=== PATIENT | male | born 1945 | race Caucasian/White ===

== ENCOUNTER 2020-08-26 10:42 | Outpatient (REF) | payer MEDICARE, SELFPAY ==
--- NOTE | ~2020-08-26 | XR_ITS ---
EXAMINATION: XR HIP, RIGHT CLINICAL INFORMATION: Right hip pain. COMPARISON: Right hip done on 11/22/2019. TECHNIQUE: Two views of the right hip. Single frontal view of the pelvis. FINDINGS: Mild diffuse osteopenia is noted. Mild decreased joint space, subchondral sclerosis, consistent with mild osteoarthrosis is present at the right hip. Appearance is similar to the left hip as is seen on the radiograph of the pelvis. Partial sacralization of L5 on the left. Multiple postsurgical, post hernia repair clips are present overlying the right lower quadrant of the pelvis. XR/XR hip RT w PEL1V IMPRESSION: Mild right hip osteoarthrosis, similar to prior study dated 11/22/2019..
== END 2020-08-26 10:43 | disposition home or self-care (01) ==
LOC: HO.HOSX 10:42
PROVIDERS: Visit Provider Orthopaedic Surgery
DX: M25.551 Pain in right hip (principal)
CPT/HCPCS: 73502

== ENCOUNTER → 2020-08-27 10:19 | Outpatient (BNVA) | payer MEDICARE, SELFPAY | PROVIDERS: PCP Internal Medicine; Visit Provider Orthopaedic Surgery | DX: M76.891 Other specified enthesopathies of right lower limb, excluding foot (principal) | CPT/HCPCS: 99202 ==

== ENCOUNTER → 2020-10-29 10:09 | Outpatient (BNVA) | payer MEDICARE, SELFPAY | PROVIDERS: Visit Provider Orthopaedic Surgery | DX: M16.11 Unilateral primary osteoarthritis, right hip (principal) | CPT/HCPCS: 99212 ==

== ENCOUNTER 2020-11-01 14:07 | Outpatient (REF) | payer MEDICARE, SELFPAY ==
--- NOTE | ~2020-11-01 | MR_ITS ---
EXAMINATION: MR HIP WITHOUT CONTRAST, RIGHT CLINICAL INFORMATION: Right hip pain. COMPARISON: X-ray 08/27/2020. TECHNIQUE: MRI of the right hip was obtained using routine sequences on a high-field strength magnet. FINDINGS: BONE/JOINTS: Mild right hip arthritis, with scattered areas of cartilage thinning and fissuring, faint subchondral edema in the acetabulum. No evidence of fracture, avascular necrosis or stress reaction. No significant joint effusion. No cystic foci in the anterior femoral head and neck junction. Pubic rami are intact. Mild right hip arthritis. On the coronal sequence of the pelvis, there is mild left SI joint arthritis. Normal articulation of the left hip joint. LABRUM: Mild anterosuperior labral degeneration. No focal displaced labral tear is seen. MUSCLES/TENDONS: Mild distal gluteus minimus tendinosis. Gluteus medius, rectus femoris, iliopsoas, common hamstring tendons are intact. No muscle tear. No greater trochanteric or iliopsoas bursitis. MISCELLANEOUS: No inguinal adenopathy. Prostate is enlarged measuring 4.7 cm transverse, with heterogeneous signal within the prostate gland, with the appearance most suggestive of a prominent transitional zone prostatic hypertrophy. No suspicious lesion identified. The urinary bladder is nondistended limiting evaluation. No free fluid in the pelvis. There are surgical clips along the anterior abdominal wall from prior surgery. Prostate findings were reviewed/discussed with Dr. Dickson. MR/MR hip RT wo con IMPRESSION: 1. Mild right hip arthritis. No evidence of acute osseous abnormality. 2. Anterosuperior labral degeneration. No focal tear. 3. Mild distal gluteus minimus tendinosis. 4. Mild right hip arthritis. 5. Mild bilateral SI joint arthritis. 6. Enlarged prostate, with prominent transitional zone prostatic hypertrophy. No suspicious lesion identified.
== END 2020-11-01 14:08 | disposition home or self-care (01) ==
LOC: HO.MRI 14:07
PROVIDERS: Visit Provider Orthopaedic Surgery
DX: M16.11 Unilateral primary osteoarthritis, right hip (principal); M76.891 Other specified enthesopathies of right lower limb, excluding foot
CPT/HCPCS: 73721

== ENCOUNTER → 2020-11-06 11:25 | Outpatient (BNVA) | payer MEDICARE, SELFPAY | PROVIDERS: Visit Provider Orthopaedic Surgery | DX: M16.11 Unilateral primary osteoarthritis, right hip (principal) | CPT/HCPCS: 99212 ==

== ENCOUNTER 2021-01-28 11:34 | Outpatient (REF) | payer MEDICARE, SELFPAY ==
--- NOTE | ~2021-01-28 | XR_ITS ---
EXAMINATION: CR X-RAY KNEE STANDING BILATERAL CLINICAL INFORMATION: Bilateral knee pain. COMPARISON: Bilateral knee radiographs dated 09/18/2016. TECHNIQUE: Bilateral AP standing views of the knees were obtained along with right knee lateral and axial views. FINDINGS: Moderate medial femoral-tibial degenerative joint changes are seen bilaterally with joint space narrowing and periarticular sclerosis. There is no acute fracture, dislocation or joint effusion. The soft tissues are unremarkable. XR/XR knee standing BI IMPRESSION: Moderate medial femoral-tibial degenerative joint changes suggesting osteoarthritis represent mild interval increase from the 2017 study.
--- NOTE | ~2021-01-28 | XR_ITS ---
EXAMINATION: CR X-RAY KNEE STANDING BILATERAL CLINICAL INFORMATION: Bilateral knee pain. COMPARISON: Bilateral knee radiographs dated 09/18/2016. TECHNIQUE: Bilateral AP standing views of the knees were obtained along with right knee lateral and axial views. FINDINGS: Moderate medial femoral-tibial degenerative joint changes are seen bilaterally with joint space narrowing and periarticular sclerosis. There is no acute fracture, dislocation or joint effusion. The soft tissues are unremarkable. XR/XR knee RT 2V IMPRESSION: Moderate medial femoral-tibial degenerative joint changes suggesting osteoarthritis represent mild interval increase from the 2017 study.
== END 2021-01-28 11:35 | disposition home or self-care (01) ==
LOC: HO.HOSX 11:34
PROVIDERS: Visit Provider Orthopaedic Surgery
DX: M17.11 Unilateral primary osteoarthritis, right knee (principal); M25.562 Pain in left knee
CPT/HCPCS: 20610; 73560; 73565; 99212; J1040

== ENCOUNTER 2021-01-29 12:48 | Outpatient (REF) | payer MEDICARE, SELFPAY ==
--- NOTE | ~2021-01-29 | CT_ITS ---
EXAMINATION: CT HEAD WITHOUT CONTRAST CLINICAL INFORMATION: Hydrocephalus. COMPARISON: None TECHNIQUE: Contiguous axial imaging was performed from the skull base to vertex without intravenous administration of contrast. This CT examination was performed using dose optimization techniques as appropriate, variously including the following: *Automated exposure control *Adjustment of mA and/or kV according to patient size (this includes techniques or standardized protocols for targeted exams where dose is matched to indication/reason for exam; i.e. extremities or head) *Use of iterative reconstruction technique DLP: 757 mGy-cm FINDINGS: There is no evidence of acute intracranial hemorrhage or territorial infarction. No abnormal mass effect or midline shift is seen. Lee to white matter differentiation is well preserved. No extra-axial fluid collections are identified. The lateral ventricles are symmetrical but enlarged with mild prominence of cortical sulci. There is mild perivesical hypodensity with no mass effect. The osseous structures and soft tissues are normal. The mastoid air cells and visualized portions of the paranasal sinuses are well aerated. CT/CT head/brain wo con IMPRESSION: No acute intracranial process seen.
--- NOTE | ~2021-01-29 | MR_ITS ---
MR CERVICAL SPINE WITHOUT IV CONTRAST CLINICAL INFORMATION: Rule out spinal stenosis/cord compression. COMPARISON: None available. TECHNIQUE: MRI of the cervical spine was obtained using routine sequences without contrast. FINDINGS: Mild anterior subluxation of C4 on C5. There is no bone marrow edema. There are no acute fractures. Vertebral body heights are maintained. Moderate to severe disc volume loss at C6-C7 and moderate disc volume loss at C5-C6. Partially imaged intracranial compartment is unremarkable. Cervical arterial flow voids are maintained. There are no significant extraspinal soft tissue findings. There is no cord signal abnormality. C2-C3: Disc contour normal. No central canal stenosis and no foraminal stenosis. C3-C4: Small disc osteophyte. No central canal stenosis and no foraminal stenosis. C4-C5: Small disc osteophyte. Mild anterior subluxation. Bilateral facet arthropathy. No central canal stenosis and no foraminal stenosis. C5-C6: Disc osteophyte without central canal stenosis. Uncovertebral joint spurring and facet arthropathy without significant foraminal stenosis. C6-C7: Disc osteophyte without central canal stenosis. Uncovertebral joint spurring and facet arthropathy result in mild bilateral foraminal encroachment. C7-T1: Mild anterior subluxation. No central canal stenosis and no foraminal stenosis. MR/MR cervical spine wo con IMPRESSION: Multilevel cervical spondylosis. No severe central canal stenosis and no severe foraminal stenosis within the cervical spine. No cervical cord compression and no cord signal abnormality.
== END 2021-01-29 12:49 | disposition home or self-care (01) ==
LOC: HO.MRI 12:48
PROVIDERS: PCP Internal Medicine; Visit Provider Psychiatry & Neurology Neurology
DX: G91.9 Hydrocephalus, unspecified (principal)
CPT/HCPCS: 70450; 72141

== ENCOUNTER 2021-04-15 12:50 | Outpatient (REF) | payer MEDICARE, SELFPAY ==
--- NOTE | ~2021-04-15 | MR_ITS ---
EXAMINATION: MR LUMBAR SPINE WITHOUT CONTRAST CLINICAL INFORMATION: 76-year-old with gait abnormality. Patient complains of low back pain and heavy legs. COMPARISON: None. TECHNIQUE: MRI of the lumbar spine was obtained using routine sequences without contrast. FINDINGS: Coronal Alignment: Normal. Sagittal Alignment: A 4 mm of grade 1 degenerative spondylolisthesis at L4-L5 noted with 2.5 mm of grade 1 degenerative spondylolisthesis at L3-L4. Trace retrolisthesis at L2-L3. A 3 mm of retrolisthesis at L1-L2 and 2 mm of retrolisthesis at T12-L1. Lumbosacral Junction: Transitional anatomy with lowest lumbar-like segment labeled as L5, which is partially sacralized on the left. Vertebral Bodies: Normal height. Disc Spaces and Endplates: Rcjg-av-swcpgfym disc space height loss at L5-S1 with disc desiccation noted. Kluejsjh-nr-zwykzf disc space height loss at L4-L5 with disc desiccation and mild spondylosis. Mild disc space height loss posteriorly at L3-L4. There is szpm-nn-jrrplrvg disc space height loss at L1-L2 and T12-L1. Multilevel disc desiccation is noted. There is qnkw-oe-idamnlji anterolateral spondylosis between L1-L2 and T10-T11 inclusive. Spinal Canal: No abnormal developmental findings. Bone Marrow: No significant marrow-replacing process or bone marrow edema. There is a 2.6 cm benign vertebral hemangioma within the T11 vertebral body in addition to a 1.9 cm vertebral hemangioma within the T12 vertebral body on the left. Small foci of nonspecific fatty marrow replacement are seen scattered throughout the lumbar spine. Conus Medullaris: Terminates at T12. Morphology and signal is normal. Intradural Nerve Roots: Within normal limits. L5-S1: Minimal posterolateral disc osteophyte complex noted with a small right paramedian transverse annular fissure which slightly abuts the ventral thecal sac and S1 nerve root sleeve origins without nerve root compression or displacement. No significant canal or neural foraminal stenosis. L4-L5: Unroofing of the posterior disc margin noted consistent with spondylolisthesis, with pseudodisc bulging and a central radial annular fissure. There is severe bilateral facet arthrosis with moderate central spinal canal stenosis, with severe bilateral subarticular and lateral recess stenosis. There is impingement on the traversing L5 nerve roots bilaterally. There is moderate left-sided and mild right-sided craniocaudal neural foraminal stenosis with mild encroachment on the exiting left L5 nerve root. L3-L4: Slight unroofing of the posterior disc margin, with minimal disc bulging and slight flattening of the dural sac noted with moderate to severe bilateral facet arthropathy and mild narrowing of the subarticular zones bilaterally with mild central canal stenosis. There is mild right-sided neural foraminal stenosis without neural impingement. L2-L3: Minor posterolateral disc protrusion noted bilaterally with a tiny central annular fissure and a iehl-af-jxnvihor bilateral facet arthropathy without significant canal or neural foraminal stenosis. L1-L2: Mild retrolisthesis noted, with slight flattening of the ventral dural sac. No significant facet arthrosis, canal or neural foraminal stenosis. 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 This may reflect a cyst but a solid mass cannot be excluded. Recommend renal ultrasound. The paravertebral soft tissues appear unremarkable. MR/MR lumbar spine wo con IMPRESSION: 1. Grade 1 degenerative spondylolisthesis at L4-L5 and L3-L4 and mild degrees of retrolisthesis at L2-L3, L1-L2 and T12-L1 with multilevel DDD and spondylosis. 2. Multilevel disc bulging and annular fissuring as described above, with multilevel bilateral facet arthropathy. 3. Spinal canal stenosis at L4-L5 as described above with probable encroachment on the traversing L5 nerve roots bilaterally with bilateral neural foraminal narrowing, left more than right and mild right-sided neural foraminal stenosis at L3-L4. 4. Transitional lumbosacral anatomy. 5. A 4 cm probable cyst upper pole right kidney but cannot exclude a solid mass. Recommend renal ultrasound.
== END 2021-04-15 12:51 | disposition home or self-care (01) ==
LOC: HO.MRI 12:50
PROVIDERS: Visit Provider Internal Medicine
DX: R26.9 Unspecified abnormalities of gait and mobility (principal)
CPT/HCPCS: 72148

== ENCOUNTER 2021-04-29 13:57 | Outpatient (REF) | payer MEDICARE, SELFPAY ==
--- NOTE | ~2021-04-29 | US_ITS ---
EXAMINATION: US RETROPERITONEAL LIMITED (RENAL ONLY) CLINICAL INFORMATION: Right renal mass. COMPARISON: None TECHNIQUE: Real-time imaging of the kidneys. FINDINGS: RIGHT KIDNEY: 10.3 x 4.6 x 5.4 cm (SAG x AP x TRV). The kidney is normal in size, contour, and echogenicity. Renal cortical thickness is normal. No renal calculi or hydronephrosis. There is anechoic cyst in the upper pole measuring 4.8 x 3.9 x 4.2 cm. LEFT KIDNEY: 11.7 x 3.9 x 5.4 cm (SAG x AP x TRV). The kidney is normal in size, contour, and echogenicity. Renal cortical thickness is normal. No calculi or focal parenchymal lesions. No hydronephrosis. US/US renal BI IMPRESSION: Anechoic cyst upper pole right kidney. There is no echogenic stones or hydronephrosis in either kidney.
== END 2021-04-29 13:58 | disposition home or self-care (01) ==
LOC: HO.HMGCX 13:57
PROVIDERS: Visit Provider Internal Medicine
DX: N28.89 Other specified disorders of kidney and ureter (principal)
CPT/HCPCS: 76775

== ENCOUNTER 2021-07-16 11:00 | Outpatient (RCR) | payer MEDICARE, SELFPAY | END 2021-07-16 12:25 | disposition home or self-care (01) | LOC: HO.PTCHIC 11:00 | PROVIDERS: Visit Provider Neurological Surgery | DX: M54.9 Dorsalgia, unspecified (principal); M43.16 Spondylolisthesis, lumbar region | CPT/HCPCS: 97110; 97112; 97162 ==

== ENCOUNTER 2021-08-25 09:39 | Outpatient (REF) | payer MEDICARE, SELFPAY ==
[2021-08-25 11:42] LABS: MANUAL DIFF FLAG NO
[2021-08-25 11:53] LABS: Basophils Percent Auto 0.5 % (0-2); Eosinophils Absolute Auto 0.1 X10*3/uL (0.0-0.4); Eosinophils Percent Auto 1.8 % (0-4); Hematocrit 41.2 % (42.0-52.0); Hemoglobin 13.6 g/dl (14.0-18.0); Imm Gran Abs Auto 0.02 X10*3/uL (0.00-0.03); Imm Gran Pct Auto 0.3 % (0.0-0.4); Lymphocytes Absolute Auto 1.7 X10*3/uL (1.2-4.9); Lymphocytes Percent Auto 27.8 % (20-40); Mean Corpuscular Hemoglobin 30.4 pg (27.0-33.0); Mean Corpuscular Volume 92.2 fL (80.0-98.0); Mean Platelet Volume 9.9 fL (9.4-12.4); Monocytes Absolute Auto 0.4 X10*3/uL (0.1-1.2); Monocytes Percent Auto 6.2 % (2-11); Neutrophils Absolute Auto 3.9 x10*3/uL (2.0-8.3); Neutrophils Percent Auto 63.4 % (45-73); Platelet Count 197 X10*3/uL (160-400); Red Blood Count 4.47 X10*6/uL (4.60-5.80); Red Cell Distribution Width 13.2 % (11.0-16.0); White Blood Count 6.1 X10*3/uL (4.8-10.8)
[2021-08-25 12:01] LABS: Alanine Aminotransferase 22 U/L (0-40); Albumin Level 4.3 g/dL (3.5-5.0); Alkaline Phosphatase 62 U/L (39-117); Anion Gap 14 (12-20); Aspartate Amino Transferase 19 U/L (5-37); Bilirubin Total 1.2 mg/dL (0.0-1.0); Blood Urea Nitrogen 23 mg/dL (9-16); Calcium 9.3 mg/dL (8.4-10.2); Carbon Dioxide 25 mmol/L (22-29); Chloride 105 mmol/L (96-108); Cholesterol 218 mg/dL; Estimated Glomerular Filt Rate > 60; Glucose Fasting 98 mg/dL (60-99); HDL Cholesterol 69 mg/dL; LDL Cholesterol Calculated 137 mg/dl; Potassium 4.3 mmol/L (3.3-5.1); Sodium 140 mmol/L (135-145); Total Protein 6.6 g/dL (6.5-8.0); Triglycerides 60 mg/dL
[2021-08-25 12:25] LABS: PSA,Total (Free>4and<10) 1.41 ng/mL (0.00-4.00); Thyroid Stimulating Hormone 1.08 uIU/mL (0.32-4.0); Vitamin D 25-OH Total 40.3 ng/mL (>30)
== END 2021-08-25 09:40 | disposition home or self-care (01) ==
LOC: HO.HMGCLDS 09:39
PROVIDERS: PCP Internal Medicine; Visit Provider Internal Medicine
DX: Z12.5 Encounter for screening for malignant neoplasm of prostate (principal); K21.9 Gastro-esophageal reflux disease without esophagitis; N40.0 Benign prostatic hyperplasia without lower urinary tract symptoms
CPT/HCPCS: 36415; 80053; 80061; 82306; 84153; 84443; 85025

== ENCOUNTER → 2021-10-20 11:25 | Outpatient (BNVA) | payer MEDICARE, SELFPAY | PROVIDERS: PCP Internal Medicine; Visit Provider Physician Assistant | DX: M17.11 Unilateral primary osteoarthritis, right knee (principal) | CPT/HCPCS: 20610; 99212; J1040 ==

== ENCOUNTER 2022-07-06 09:07 | Outpatient (REF) | payer MEDICARE, SELFPAY ==
[2022-07-06 11:52] LABS: MANUAL DIFF FLAG NO
[2022-07-06 12:16] LABS: Basophils Percent Auto 0.6 % (0-2); Eosinophils Absolute Auto 0.1 X10*3/uL (0.0-0.4); Eosinophils Percent Auto 1.9 % (0-4); Hematocrit 41.9 % (42.0-52.0); Hemoglobin 13.8 g/dl (14.0-18.0); Imm Gran Abs Auto 0.02 X10*3/uL (0.00-0.03); Imm Gran Pct Auto 0.4 % (0.0-0.4); Lymphocytes Absolute Auto 1.7 X10*3/uL (1.2-4.9); Lymphocytes Percent Auto 32.6 % (20-40); Mean Corpuscular HGB Conc 32.9 g/dl (31.0-36.0); Mean Corpuscular Hemoglobin 30.1 pg (27.0-33.0); Mean Corpuscular Volume 91.5 fL (80.0-98.0); Mean Platelet Volume 10.1 fL (9.4-12.4); Monocytes Absolute Auto 0.4 X10*3/uL (0.1-1.2); Monocytes Percent Auto 7.1 % (2-11); Neutrophils Absolute Auto 3.1 x10*3/uL (2.0-8.3); Neutrophils Percent Auto 57.4 % (45-73); Platelet Count 208 X10*3/uL (160-400); Red Blood Count 4.58 X10*6/uL (4.60-5.80); Red Cell Distribution Width 12.9 % (11.0-16.0); White Blood Count 5.3 X10*3/uL (4.8-10.8)
[2022-07-06 12:51] LABS: Alanine Aminotransferase 23 U/L (0-40); Albumin Level 4.1 g/dL (3.5-5.0); Alkaline Phosphatase 75 U/L (39-117); Anion Gap 12 (12-20); Aspartate Amino Transferase 17 U/L (5-37); Bilirubin Total 1.1 mg/dL (0.0-1.0); Blood Urea Nitrogen 19 mg/dL (9-16); Calcium 9.1 mg/dL (8.4-10.2); Carbon Dioxide 27 mmol/L (22-29); Chloride 106 mmol/L (96-108); Cholesterol 218 mg/dL; Estimated Glomerular Filt Rate > 60; Glucose Fasting 100 mg/dL (60-99); HDL Cholesterol 63 mg/dL; LDL Cholesterol Calculated 143 mg/dl; Potassium 4.3 mmol/L (3.3-5.1); Sodium 141 mmol/L (135-145); Thyroid Stimulating Hormone 1.06 uIU/mL (0.32-4.0); Total Protein 6.3 g/dL (6.5-8.0); Triglycerides 63 mg/dL
== END 2022-07-06 09:08 | disposition home or self-care (01) ==
LOC: HO.HMGCLDS 09:07
PROVIDERS: Visit Provider Internal Medicine
DX: G20 Parkinson's disease (principal); K21.9 Gastro-esophageal reflux disease without esophagitis; N40.0 Benign prostatic hyperplasia without lower urinary tract symptoms
CPT/HCPCS: 36415; 80053; 80061; 84443; 85025

== ENCOUNTER 2023-08-26 10:29 | Outpatient (REF) | payer MEDICARE, SELFPAY ==
[2023-08-26 13:19] LABS: MANUAL DIFF FLAG NO
[2023-08-26 13:42] LABS: Basophils Percent Auto 0.5 % (0-2); Eosinophils Absolute Auto 0.2 X10*3/uL (0.0-0.4); Eosinophils Percent Auto 2.7 % (0-4); Hemoglobin 14.6 g/dl (14.0-18.0); Imm Gran Abs Auto 0.02 X10*3/uL (0.00-0.03); Imm Gran Pct Auto 0.4 % (0.0-0.4); Lymphocytes Absolute Auto 1.6 X10*3/uL (1.2-4.9); Lymphocytes Percent Auto 29.3 % (20-40); Mean Corpuscular HGB Conc 33.2 g/dl (31.0-36.0); Mean Corpuscular Hemoglobin 30.4 pg (27.0-33.0); Mean Corpuscular Volume 91.5 fL (80.0-98.0); Mean Platelet Volume 9.7 fL (9.4-12.4); Monocytes Absolute Auto 0.3 X10*3/uL (0.1-1.2); Monocytes Percent Auto 6.2 % (2-11); Neutrophils Absolute Auto 3.3 x10*3/uL (2.0-8.3); Neutrophils Percent Auto 60.9 % (45-73); Platelet Count 206 X10*3/uL (160-400); Red Blood Count 4.81 X10*6/uL (4.60-5.80); Red Cell Distribution Width 12.9 % (11.0-16.0); White Blood Count 5.5 X10*3/uL (4.8-10.8)
[2023-08-26 14:04] LABS: Alanine Aminotransferase 17 U/L (0-40); Albumin Level 4.4 g/dL (3.5-5.0); Alkaline Phosphatase 69 U/L (39-117); Anion Gap 12 (12-20); Aspartate Amino Transferase 16 U/L (5-37); Bilirubin Total 1.1 mg/dL (0.0-1.0); Blood Urea Nitrogen 21 mg/dL (9-16); Calcium 9.3 mg/dL (8.4-10.2); Carbon Dioxide 27 mmol/L (22-29); Chloride 106 mmol/L (96-108); Cholesterol 229 mg/dL (<200); Estimated Glomerular Filt Rate > 60; Glucose Fasting 97 mg/dL (60-99); HDL Cholesterol 62 mg/dL (>40); LDL Cholesterol Calculated 151 mg/dL (<100); Potassium 4.1 mmol/L (3.3-5.1); Sodium 141 mmol/L (135-145); Total Protein 7.1 g/dL (6.5-8.0); Triglycerides 82 mg/dL (<150)
[2023-08-26 14:20] LABS: Thyroid Stimulating Hormone 1.03 uIU/mL (0.32-4.0)
== END 2023-08-26 10:30 | disposition home or self-care (01) ==
LOC: HO.HMGCLDS 10:29
PROVIDERS: PCP Internal Medicine; Visit Provider Internal Medicine
DX: E78.00 Pure hypercholesterolemia, unspecified (principal); I49.49 Other premature depolarization; K21.9 Gastro-esophageal reflux disease without esophagitis; N40.0 Benign prostatic hyperplasia without lower urinary tract symptoms
CPT/HCPCS: 36415; 80053; 80061; 84443; 85025

== ENCOUNTER 2024-02-21 14:45 | Outpatient (AMB) | payer MEDICARE, SELFPAY ==
--- NOTE | 2024-02-21 14:46 | MHC.OFFVIS ---
Vital Signs 02/21/24 14:54 Height 5 ft 6 in Weight 153 lb BMI 24.7 BP 136/72 Blood Pressure Location Rt brachial Position Sitting Pulse 78 Intake Visit Reasons: pilonidal cyst Intake Note: Patient referred for pilonidal cyst on buttock. Present on and off for yrs. Patient c/o: tenderness when I sit wrong. 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 It is increasing in size,, symptomatic. Like to have removed. He has no such lesions elsewhere. Patient is otherwise relatively healthy considering his age. Chart was reviewed and patient evaluate [facility] Medical History Inguinal hernia Allergies Chronic GERD Social History Current occupational status: retired Current occupation: right handed Physical Exam Vital Signs: Last Vital Signs Pulse 78 02/21/24 14:54 BP 136/72 02/21/24 14:54 BMI result Body Mass Index 24.7 Chest Other: Chest breath sounds bilaterally, HS 1 in 2 GI Other: Abdomen is soft, benign Back/Spine/Pelvis Other: Patient has an exophytic growth involving the darrel cleft area. This measures approximately 4 x 3 cm. Assessment & Plan Assessment & Plan (1) Palpable mass of lower back: Code(s): R22.2 - Localized swelling, mass and lump, trunk Category: Surgical Plan Patient would like to have this lesion removed. Risks, benefits, alternatives of excision of mass of cleft area reviewed the patient included but not limited to bleeding infection, recurrence, numbness, pain, scarring, seroma formation, wound dehiscence and the patient wished to proceed. All questions answered. Arrangements were made for this. Coding Level of Care Code New Pt Level 5 (95022) Diagnoses Palpable mass of lower back R22.2
[2024-02-21 14:54] VITALS: BP 136/72; PULSE 78; BMI 24.7
== END 2024-02-21 15:12 | disposition home or self-care (01) ==
PROVIDERS: PCP Internal Medicine; Visit Provider Surgery
DX: R22.2 Localized swelling, mass and lump, trunk (principal)
CPT/HCPCS: 99204

== ENCOUNTER → 2024-02-21 14:45 | Outpatient (BNVA) | payer MEDICARE, SELFPAY | PROVIDERS: PCP Internal Medicine; Visit Provider Surgery | DX: R22.2 Localized swelling, mass and lump, trunk (principal) | CPT/HCPCS: 99202 ==

== ENCOUNTER 2024-03-03 07:33 | Outpatient (REF) | payer MEDICARE, SELFPAY ==
[2024-03-03 10:08] LABS: MANUAL DIFF FLAG NO
[2024-03-03 10:10] LABS: Basophils Percent Auto 0.5 % (0-2); Eosinophils Absolute Auto 0.3 X10*3/uL (0.0-0.4); Eosinophils Percent Auto 4.5 % (0-4); Hematocrit 42.2 % (42.0-52.0); Hemoglobin 13.9 g/dl (14.0-18.0); Imm Gran Abs Auto 0.02 X10*3/uL (0.00-0.03); Imm Gran Pct Auto 0.4 % (0.0-0.4); Lymphocytes Absolute Auto 1.5 X10*3/uL (1.2-4.9); Lymphocytes Percent Auto 27.9 % (20-40); Mean Corpuscular HGB Conc 32.9 g/dl (31.0-36.0); Mean Corpuscular Hemoglobin 30.5 pg (27.0-33.0); Mean Corpuscular Volume 92.5 fL (80.0-98.0); Mean Platelet Volume 9.9 fL (9.4-12.4); Monocytes Absolute Auto 0.4 X10*3/uL (0.1-1.2); Monocytes Percent Auto 6.3 % (2-11); Neutrophils Absolute Auto 3.3 x10*3/uL (2.0-8.3); Neutrophils Percent Auto 60.4 % (45-73); Platelet Count 212 X10*3/uL (160-400); Red Blood Count 4.56 X10*6/uL (4.60-5.80); Red Cell Distribution Width 13.6 % (11.0-16.0); White Blood Count 5.5 X10*3/uL (4.8-10.8)
[2024-03-03 10:40] LABS: Alanine Aminotransferase 14 U/L (0-40); Albumin Level 4.2 g/dL (3.5-5.0); Alkaline Phosphatase 78 U/L (39-117); Anion Gap 9 (12-20); Aspartate Amino Transferase 17 U/L (5-37); Bilirubin Total 0.9 mg/dL (0.0-1.0); Blood Urea Nitrogen 22 mg/dL (9-16); Calcium 9.4 mg/dL (8.4-10.2); Carbon Dioxide 29 mmol/L (22-29); Chloride 109 mmol/L (96-108); Cholesterol 214 mg/dL (<200); Estimated Glomerular Filt Rate > 60; Glucose Fasting 99 mg/dL (60-99); HDL Cholesterol 65 mg/dL (>40); LDL Cholesterol Calculated 136 mg/dL (<100); Sodium 143 mmol/L (135-145); Total Protein 6.8 g/dL (6.5-8.0); Triglycerides 66 mg/dL (<150)
[2024-03-03 10:41] LABS: Thyroid Stimulating Hormone 1.23 uIU/mL (0.32-4.0)
== END 2024-03-03 07:34 | disposition home or self-care (01) ==
LOC: HO.HMGCLDS 07:33
PROVIDERS: PCP Internal Medicine; Visit Provider Internal Medicine
DX: K21.9 Gastro-esophageal reflux disease without esophagitis (principal); N40.0 Benign prostatic hyperplasia without lower urinary tract symptoms; M54.50 Low back pain, unspecified; G20.C Parkinsonism, unspecified; E78.00 Pure hypercholesterolemia, unspecified
CPT/HCPCS: 36415; 80053; 80061; 84443; 85025

== ENCOUNTER 2024-03-03 09:22 | Emergency (ER) | payer MEDICARE, SELFPAY ==
--- NOTE | ~2024-03-03 | XR_ITS ---
EXAMINATION: XR CHEST XR RIBS, RIGHT CLINICAL INFORMATION: Pain/fall Pain on right side of ribs COMPARISON: Chest radiograph 05/11/2019 TECHNIQUE: 1 view of the chest and 3 views of the right ribs were obtained. FINDINGS: Lungs are adequately expanded. There is no focal consolidation. No pleural effusions or pneumothorax. The cardiomediastinal silhouette is within normal limits. No acute osseous abnormality. No displaced right rib fractures are identified. XR/XR ribs RT min 3V w CXR1V IMPRESSION: 1. No acute pulmonary disease. 2. No displaced right rib fractures are identified. Electronically signed by: Bautista Smith MD 03/03/2024 12:18 PM EDT RP
--- NOTE | ~2024-03-03 | CT_ITS ---
EXAMINATION: CT ANGIOGRAM CHEST CLINICAL INFORMATION: Shortness of breath, elevated D dimer COMPARISON: None available. TECHNIQUE: Multiple axial images were obtained through the chest after the administration of 65 mL of Omnipaque 350 intravenous contrast. Extensive vascular post-processing including two-dimensional and three-dimensional reformatted images were created and reviewed on an independent workstation. This CT examination was performed using dose optimization techniques as appropriate, variously including the following: *Automated exposure control *Adjustment of mA and/or kV according to patient size (this includes techniques or standardized protocols for targeted exams where dose is matched to indication/reason for exam; i.e. extremities or head) *Use of iterative reconstruction technique DLP: 278 mGy-cm FINDINGS: PULMONARY ARTERIES: The main pulmonary arteries, lobar and segmental arterial branches show adequate enhancement. Main pulmonary trunk measures 386 Hounsfield units in mean attenuation. Progressive periocular occluding thrombus is seen in the left lingular lobar and superior segmental arteries. There is mild dilatation of the right ventricle but no significant displacement of the interventricular septum. The right ventricle/left ventricle ratio is 1.0, compatible with right heart strain. Branching order level of the most proximal level of pulmonary embolus: Left lingular Lobar artery LUNGS: The visualized lung parenchyma is clear. PLEURA: No pleural effusion or pneumothorax is seen. PERICARDIUM: No pericardial effusion is seen. MEDIASTINUM AND CHAPO: No abnormally enlarged mediastinal or hilar lymph nodes are seen. TRACHEOBRONCHIAL TREE: Trachea and bilateral mainstem bronchi are patent. THORACIC AORTA: The thoracic aorta is normal in size and smoothly patent. CORONARY ARTERY CALCIFICATIONS: Absent CHEST WALL AND LOWER NECK: The subcutaneous and muscular chest wall are intact with no focal lesion. No abnormal mass lesion could be seen in the visualized lower neck. BONES: Radiolucent lesions with polkadot appearance are seen in T6, left lateral T12 and partially visualized in left upper L1 vertebral bodies, compatible with cavernous hemangioma. No fracture or dislocation. No focal bone lesion diagnostic of metastatic disease could be seen in the thorax. VISUALIZED UPPER ABDOMEN: Bilateral adrenal glands are not enlarged. Right upper pole simple cyst is partially visualized, measuring 3.6 cm in diameter in the visualized portion, mean attenuation of 7.9 Hounsfield units. A 1.6 cm accessory spleen is seen medial to the splenic body. CT/CT angio chest PE protocol IMPRESSION: 1. Progressive occluding thrombus is seen in the left lingula lobar and superior segmental arteries with mild right heart strain. 2. No focal lung infiltrates or mediastinal lymphadenopathy are seen. 3. No thoracic aortic aneurysm or dissection is seen. 4. Vertebral hemangiomas are seen in T6, T12 and L1. 5. Right upper pole renal cortical simple cyst is found, for which no follow-up imaging is recommended. This critical result was discussed with GARETH Arroyo on 03/03/2024 at 1550 hours and it was ascertained that the content and urgency of this report was understood at the time of direct communication. Fleischner guidelines were followed. VTE: Positive. Electronically signed by: Ammy Farr MD 03/03/2024 03:52 PM EDT
--- NOTE | 2024-03-03 09:24 | ECG_ITS ---
Test Reason : chest pain Blood Pressure : / mmHG Vent. Rate : 083 BPM Atrial Rate : 083 BPM P-R Int : 194 ms QRS Dur : 080 ms QT Int : 350 ms P-R-T Axes : 047 016 051 degrees QTc Int : 411 ms Normal sinus rhythm Normal ECG When compared with ECG of 17-NOV-2005 09:03, No significant change was found Referred By: Generic ED Physician Electronically Signed By:ELISHA LOOMIS
[2024-03-03 09:30] VITALS: BP 141/91; PULSE 78; RESP 20; TEMP 36.4; O2SAT 100; BMI 24.7
--- NOTE | 2024-03-03 09:48 | ED.GENADULT ---
HPI - General Adult General Chief complaint: General Medical Stated complaint: symptoms of a heart attack, sent by [facility] Time Seen by Provider: 03/03/24 09:45 Source: patient Mode of arrival: ambulatory Limitations: no limitations History of Present Illness ED Provider: Jessica Feldman PA-C HPI narrative: 79yo M PMHx Parkinsons, osteoarthritis of right knee and hip sent in by PCP for low BP in the office (80/50), feeling off , chills, hot and cold sweats. Reports he fell Wednesday, denies head strike, LOC, no thinners, no preceding sx to fall. Patient unable to report why he fell earlier this week. C/o right sided rib/chest pain radiating to shoulder. Denies cough, fevers, chills, cp, sob, headache, vision changes, dizziness weakness. States his pain is worse when breathing but otherwise he offers no complaints. Related Data Home Medications ?Medication ?Instructions ?Recorded ?Confirmed finasteride 1 mg tablet 1 mg PO DAILY 08/27/20 fluticasone furoate 100 1 inh inhalation DAILY 08/27/20 mcg/actuation blister powder for inhalation omeprazole 20 mg capsule,delayed 20 mg PO DAILY 08/27/20 release carbidopa 10 mg-levodopa 100 mg 1 tab PO BID 02/21/24 tablet Previous Rx's ?Medication ?Instructions ?Recorded apixaban 5 mg (74 tabs) tablets in 5 mg PO BID #74 ea 03/03/24 a dose pack (Eliquis DVT-PE Treat 30D Start) Allergies Allergy/AdvReac Type Severity Reaction Status Date / Time No Known Allergies Allergy Verified 03/03/24 09:35 [No Known Allergies*] Review of Systems Review of Systems: Yes all other systems are reviewed and are negative PMFSH Past Medical History Attestation statement: The following information was validated with the patient. Source: old records reviewed and nursing notes reviewed Medical History Inguinal hernia Allergies Chronic GERD Social History Social History Advance Directives: No Advance Directives Information Provided: No Do you have a plan to hurt others: No Plan Current occupational status: retired Current occupation: right handed Physical Exam ED Vital Signs: Vital Signs - 24 hr 03/03/24 09:30 03/03/24 10:01 03/03/24 11:33 Temperature 97.5 F Pulse Rate 78 75 81 Respiratory Rate 20 Blood Pressure 141/91 H 147/43 H 150/86 H Pulse Oximetry 100 Oxygen Delivery Method Room Air 03/03/24 11:36 Temperature Pulse Rate 86 Respiratory Rate Blood Pressure 136/79 Pulse Oximetry Oxygen Delivery Method BMI result Body Mass Index 24.7 vss Appearance: Alert.? Oriented X3.? No acute distress.? Head: Normocephalic, atraumatic, no step-offs or deformities Eyes: Pupils equal, round and reactive to light.? CVS: Normal heart rate and rhythm.? Pulses normal.?TTP right ribs along anterior/midaxillary line. No bruising appreciated Respiratory: No respiratory distress.? Breath sounds normal.? Abdomen: Soft and nontender.? Skin: Skin warm and dry.? Normal skin color.? Normal skin turgor.? Extremities: No lower extremity edema.? No calf ttp. 5/5 strength to bilateral upper and lower extremities Neuro: Oriented X 3.? No motor deficit.? No sensory deficit. CN 2-12 intact Course Reevaluation(s) Reevaluation #1: CBC unremarkable. Chemistry no acute findings eating intervention. Troponin negative x2. Elevated D-dimer suggest possible PE therefore CTA was ordered. Flu, COVID, RSV negative. Time: 12:00 Reevaluation #2: + lobar PE in left lingula w/ mild right heart strain. Time: 15:52 Reevaluation #3: Will discharge patient home on Eliquis. Will give 1st dose here. Will go over strict criteria/instructions of blood thinner use. Will have him follow up with PCP and Cardiology Time: 15:59 Medications Administered Discontinued Medications Generic Name Dose Route Start Last Admin Trade Name Freq PRN Reason Stop Dose Admin Iohexol 65 ml 03/03/24 14:14 03/03/24 14:14 Iohexol 350 Mg/Ml 75 Ml Infus..Btl IV 03/03/24 14:15 65 ml ONCE ONE Administration Medical Decision Making Medical Decision Making MDM Narrative: 79yo M presenting from PCP office for low BP, feeling off, R chest pain, s/p fall Wednesday no thinners PE benign Hx and PE concerning for chest trauma vs ACS vs rib fx vs virall illness. . Less likely, dissection, tamponade, pneumothorax, hemothorax, flail chest, PE, pericarditis, acute threat to airway Plan: EKG, CXR, labs Differential Diagnosis Differential Diagnoses: The differential diagnosis associated with the presentation includes (Hx and PE concerning for chest trauma vs ACS vs rib fx vs virall illness. . Less likely, dissection, tamponade, pneumothorax, hemothorax, flail chest, PE, pericarditis, acute threat to airway) Admission/Observation Consideration of admission/observation: Escalation of care including admission/observation considered Unlikely Lab Data MDM Lab Attestation statement: I reviewed the patient's lab results. 03/03/24 09:44 03/03/24 09:44 Labs: Lab Results 03/03/24 03/03/24 Range/Units 09:44 11:30 WBC 5.9 (4.8-10.8) X10*3/uL RBC 4.57 L (4.60-5.80) X10*6/uL Hgb 14.0 (14.0-18.0) g/dl Hct 42.2 (42.0-52.0) % MCV 92.3 (80.0-98.0) fL MCH 30.6 (27.0-33.0) pg MCHC 33.2 (31.0-36.0) g/dl RDW 13.5 (11.0-16.0) % Plt Count 197 (160-400) X10*3/uL MPV 9.4 (9.4-12.4) fL Immature Gran % (Auto) 0.3 (0.0-0.4) % Neut % (Auto) 64.8 (45-73) % Lymph % (Auto) 24.8 (20-40) % [place] % (Auto) 6.4 (2-11) % Eos % (Auto) 3.2 (0-4) % Baso % (Auto) 0.5 (0-2) % Lymph # (Auto) 1.5 (1.2-4.9) X10*3/uL [place] # (Auto) 0.4 (0.1-1.2) X10*3/uL Eos # (Auto) 0.2 (0.0-0.4) X10*3/uL Baso # (Auto) 0.0 (0.0-0.2) X10*3/uL Abs Immat Gran (auto) 0.02 (0.00-0.03) X10*3/uL Absolute Neuts (auto) 3.8 (2.0-8.3) x10*3/uL Absolute Nucleated RBC 0.000 (0.0-0.012) X10*3/uL Nucleated RBC % (auto) 0.0 (0.0-0.2) /100WBC D-Dimer High Sensitivty 782 NG/ML Sodium 145 (135-145) mmol/L Potassium 4.3 (3.3-5.1) mmol/L Chloride 110 H (96-108) mmol/L Carbon Dioxide 28 (22-29) mmol/L Anion Gap 11 L (12-20) BUN 21 H (9-16) mg/dL Creatinine 1.04 (0.5-1.4) mg/dL Estim Creat Clear Calc 51.1 Estimated GFR > 60 Random Glucose 89 (60-115) mg/dL Calcium 9.7 (8.4-10.2) mg/dL Total Bilirubin 0.9 (0.0-1.0) mg/dL Direct Bilirubin 0.3 (0.0-0.5) mg/dL AST 17 (5-37) U/L ALT 16 (0-40) U/L Alkaline Phosphatase 84 (39-117) U/L Troponin I High Sens < 2.7 < 2.7 (<3.5-35.0) ng/L Total Protein 7.2 (6.5-8.0) g/dL Albumin 4.4 (3.5-5.0) g/dL Lipase 35 (8-78) U/L Influenza Type A (PCR) NEGATIVE (Negative) Influenza Type B (PCR) NEGATIVE (Negative) RSV RNA Qual (PCR) NEGATIVE (Negative) SARS-CoV-2 RNA (RT-PCR) NEGATIVE (Negative) Independent Interpretation I performed an independent interpretation of an: CT Scan Radiology Impression Discussion of test interpretation with radiology: I have reviewed the radiologist's reading. Critical Care Time Critical Care Time Critical Care Time: Yes Total Critical Care Time: 35 Attestation: I attest to this time spent taking care of the patient, obtaining history, physical, reviewing labs, imaging, treatment of patients condition +/- specialist/hospitalist consult Discharge Plan Discharge Clinical Impression: Chills, Fall, CKD (chronic kidney disease), Pulmonary embolism Patient Disposition: Home, Self-Care Instructions: Chronic Kidney Disease (ED), Chronic Kidney Disease Diet (DC), Fall Prevention (ED), Blood Thinners (ED) Additional Instructions: Take your medications as prescribed. If you were prescribed antibiotics today, it is important that you take your medication to their entirety, do not skip any doses, do not finish them early. Follow-up with your primary care provider this week. Return to the emergency department with new or worsening symptoms. Such as fevers, chills, chest pain, shortness of breath, nausea, vomiting, dizziness, headache, vision changes, lethargy In case of emergency call 911 Follow-up with your PCP to follow your kidney function. If you have a fall or trauma please seek medical attention immediately your high-risk of bleeding. If you have bleeding from anywhere and he noticed it does not stop you should immediately seek medical attention. XR/XR ribs RT min 3V w CXR1V IMPRESSION: 1. No acute pulmonary disease. 2. No displaced right rib fractures are identified. Prescriptions: New Eliquis DVT-PE Treat 30D Start 5 mg (74 tabs) tablets,dose pack 5 mg PO BID Qty: 74 0RF No Action omeprazole 20 mg capsule,delayed release(DR/EC) 20 mg PO DAILY finasteride 1 mg tablet 1 mg PO DAILY fluticasone furoate 100 mcg/actuation blister with device 1 inh inhalation DAILY carbidopa-levodopa 10-100 mg tablet 1 tab PO BID Referrals: Theron Sue DO [Primary Care Provider] - 2 days Print Language: Danish
[2024-03-03 09:51] LABS: MANUAL DIFF FLAG NO
[2024-03-03 09:52] LABS: Basophils Percent Auto 0.5 % (0-2); Eosinophils Absolute Auto 0.2 X10*3/uL (0.0-0.4); Eosinophils Percent Auto 3.2 % (0-4); Hematocrit 42.2 % (42.0-52.0); Imm Gran Abs Auto 0.02 X10*3/uL (0.00-0.03); Imm Gran Pct Auto 0.3 % (0.0-0.4); Lymphocytes Absolute Auto 1.5 X10*3/uL (1.2-4.9); Lymphocytes Percent Auto 24.8 % (20-40); Mean Corpuscular HGB Conc 33.2 g/dl (31.0-36.0); Mean Corpuscular Hemoglobin 30.6 pg (27.0-33.0); Mean Corpuscular Volume 92.3 fL (80.0-98.0); Mean Platelet Volume 9.4 fL (9.4-12.4); Monocytes Absolute Auto 0.4 X10*3/uL (0.1-1.2); Monocytes Percent Auto 6.4 % (2-11); Neutrophils Absolute Auto 3.8 x10*3/uL (2.0-8.3); Neutrophils Percent Auto 64.8 % (45-73); Platelet Count 197 X10*3/uL (160-400); Red Blood Count 4.57 X10*6/uL (4.60-5.80); Red Cell Distribution Width 13.5 % (11.0-16.0); White Blood Count 5.9 X10*3/uL (4.8-10.8)
[2024-03-03 10:01] VITALS: BP 147/43; PULSE 75
[2024-03-03 10:12] LABS: Alanine Aminotransferase 16 U/L (0-40); Albumin Level 4.4 g/dL (3.5-5.0); Alkaline Phosphatase 84 U/L (39-117); Anion Gap 11 (12-20); Aspartate Amino Transferase 17 U/L (5-37); Bilirubin Direct 0.3 mg/dL (0.0-0.5); Bilirubin Total 0.9 mg/dL (0.0-1.0); Blood Urea Nitrogen 21 mg/dL (9-16); Calcium 9.7 mg/dL (8.4-10.2); Carbon Dioxide 28 mmol/L (22-29); Chloride 110 mmol/L (96-108); Creatinine Clr Calc Pharmacy 51.1; Estimated Glomerular Filt Rate > 60; Glucose Random 89 mg/dL (60-115); Lipase 35 U/L (8-78); Potassium 4.3 mmol/L (3.3-5.1); Sodium 145 mmol/L (135-145); Total Protein 7.2 g/dL (6.5-8.0)
[2024-03-03 10:20] LABS: Troponin-I High Sensitivity < 2.7 ng/L (<3.5-35.0)
--- NOTE | 2024-03-03 11:30 | PC.NURSE ---
Labs obtained and sent for analysis. Awaiting results.
[2024-03-03 11:33] VITALS: BP 150/86; PULSE 81
[2024-03-03 11:36] VITALS: BP 136/79; PULSE 86
[2024-03-03 11:57] LABS: D Dimer High Sensitivity 782 NG/ML
[2024-03-03 12:27] LABS: Influenza A PCR NEGATIVE (Negative); Influenza B PCR NEGATIVE (Negative); Resp Syncy Virus RNA Qual PCR NEGATIVE (Negative); SARS COV2 PCR INHOUSE NEGATIVE (Negative)
[2024-03-03 12:30] LABS: Troponin-I High Sensitivity < 2.7 ng/L (<3.5-35.0)
[2024-03-03] MEDS: iohexoL 350 MG/ML 75 ML INFUS..BTL 65 ML IV (14:14)
--- NOTE | 2024-03-03 14:47 | PC.NURSE ---
Patient is anxious and upset. Wearing his coat. States that he doesn't want to wait anymore. Ambulating steadily. present. GARETH Feldman speaking with the patient at this time. Leaving against medical advice. CT was obtained, but pending read from radiology. Pt aware of risks associated with leaving against medical advice, and recommended returning to ED if problems persist.
--- NOTE | 2024-03-03 15:38 | PC.NURSE ---
Pt remains at this time but requested that IV access be removed. IV access removed per pt request, provider (GARETH Feldman) aware. Family standing in ED 22 doorway, watching staff.
[2024-03-03 16:00] VITALS: BP 126/70; PULSE 75; RESP 16; TEMP 36.9; O2SAT 99
[2024-03-03] MEDS: Apixaban 5 MG TABLET 10 MG PO (16:16)
[2024-03-03 16:29] VITALS: BP 126/70; PULSE 75; RESP 16; TEMP 36.9; O2SAT 99
== END 2024-03-03 16:31 | disposition home or self-care (01) ==
PROVIDERS: Physician Assistant; Emergency Provider Student in an Organized Health Care Education/Training Program; PCP Internal Medicine
DX: I26.99 Other pulmonary embolism without acute cor pulmonale (principal); N18.9 Chronic kidney disease, unspecified; R68.83 Chills (without fever); Z91.81 History of falling; R06.02 Shortness of breath; G20.A1 Parkinson's disease without dyskinesia, without mention of fluctuations; Z03.818 Encounter for observation for suspected exposure to other biological agents ruled out; Z79.899 Other long term (current) drug therapy
CPT/HCPCS: 0241U; 36415; 71101; 71275; 80048; 80053; 80061; 80076; 83690; 84443; 84484; 85025; 85379; 93005; 99284; Q9967

== ENCOUNTER 2024-03-09 12:55 | Outpatient (REF) | payer MEDICARE, SELFPAY ==
--- NOTE | ~2024-03-09 | US_ITS ---
EXAMINATION: US TRIPLEX UPPER EXTREMITY, BILATERAL CLINICAL INFORMATION: Acute PE COMPARISON: None available. TECHNIQUE: Color-flow triplex imaging with spectral analysis and compression Doppler was performed on both upper extremities. FINDINGS: The bilateral internal jugular, subclavian, and axillary veins are patent and free of thrombus. The imaged segments of the brachiocephalic veins are patent. Spectral doppler waveforms are normal. The brachial, basilic, cephalic, radial, and ulnar veins are patent and compressible. US/US venous duplex UE BI IMPRESSION: No evidence of deep venous thrombosis involving the bilateral upper extremities. Electronically signed by: Kirk Cavanaugh MD 03/09/2024 02:24 PM EDT
--- NOTE | ~2024-03-09 | US_ITS ---
EXAMINATION: US TRIPLEX LOWER EXTREMITY, BILATERAL CLINICAL INFORMATION: Acute PE COMPARISON: None available. TECHNIQUE: Color-flow triplex imaging with spectral analysis and compression Doppler were performed on the bilateral lower extremities. FINDINGS: Respiratory variation, normal compression and augmented flow are noted throughout the bilateral lower extremities. The visualized common femoral vein, superficial femoral vein, profunda femoral vein, popliteal vein and midcalf peroneal and posterior tibial venous segments show no evidence of deep venous thrombosis bilaterally. There is no Dee's cyst. US/US venous duplex LE BI IMPRESSION: No evidence of deep venous thrombosis involving the bilateral lower extremities. Electronically signed by: Kirk Cavanaugh MD 03/09/2024 02:24 PM EDT
== END 2024-03-09 12:56 | disposition home or self-care (01) ==
LOC: HO.HMGCX 12:55
PROVIDERS: PCP Internal Medicine; Visit Provider Internal Medicine
DX: I26.99 Other pulmonary embolism without acute cor pulmonale (principal)
CPT/HCPCS: 93970

== ENCOUNTER 2024-03-10 14:02 | Outpatient (AMB) | payer MEDICARE, SELFPAY ==
[2024-03-10 14:08] VITALS: BP 128/70; PULSE 75; O2SAT 97; BMI 24.3
--- NOTE | 2024-03-10 14:08 | MHC.OFFVIS ---
Vital Signs 03/10/24 14:08 Height 5 ft 7 in Weight 155 lb 6.814 oz BMI 24.3 BP 128/70 Blood Pressure Location Rt brachial Position Sitting Pulse 75 Pulse Source Pulse Oximeter Pulse Oximetry (%) 97 Oxygen Delivery Method Room Air Intake Visit Reasons: Pulmonary embolism Regulatory Compliance Engineer Required: No Allergies No Known Allergies [No Known Allergies*] Allergy (Verified 03/10/24 14:11) HPI Comments Details: The patient is here for pulmonary evaluation. The patient is an 79-year-old gentleman with a diagnosis of pre Parkinson's with unsteady gait who presents with history of recent blood clots. Patient states that he was in his usual state health until recently we had a fall. He did not tell anybody. He did injure his right upper extremity. Subsequently after that he started feeling some night sweats and also some dizziness. He was evaluated at his primary care doctor's office where he was having low blood pressure of 80 systolic. Therefore, he was sent over to the ER there he was evaluated. He did have blood work done renal function was normal hemoglobin stable cardiac enzymes stable. Although his D-dimer was significantly elevated. Therefore, he did undergo CTA which I personally reviewed with him. Patient did have multiple subsegmental pulmonary emboli. It was also noted that he had some RV strain on the CT scan of the chest. No nodular densities. The patient did have a hemangioma that has been evaluated for in addition to that a cyst in the kidney appeared to be benign. The patient was evaluated in the ER he was given Eliquis as far as the loading dose and then he was discharged. He still feels the night sweats. He is tolerating the medicine has not noticed any minor major bleeding. The patient is not aware of any surgeries recently and is not aware of any from except for the fall hurting his right arm. Therefore, he was sent over for ultrasound Doppler of the upper and lower extremities demonstrating no evidence of any DVT. I talked to the family the patient regarding concerns about unprovoked pulmonary emboli and the possibility of an occult malignancy. The patient is having some constitutional symptoms with night sweats. Again, he was being evaluated for the hemangioma. Also has renal cyst. PFSH Medical History Inguinal hernia Allergies Chronic GERD Social History Current occupational status: retired Current occupation: right handed Review of Systems Const Denies fever(s) Eyes Reports no additional complaints ENT Reports nasal congestion Card Denies chest pain and Reports dyspnea on exertion Resp Denies pain on inspiration, Denies pain with cough, Reports dyspnea on exertion and Denies wheezing GI Reports no additional complaints Musc Reports myalgias and Reports limited range of motion Skin/Breast Denies rash Endo Reports no additional complaints Neftali/Lymph Reports no additional complaints Aller/Immun Denies wheezing Physical Exam Vital Signs: Last Vital Signs Pulse 75 03/10/24 14:08 BP 128/70 03/10/24 14:08 Pulse Ox 97 03/10/24 14:08 Oxygen Delivery Method Room Air 03/10/24 14:08 BMI result Body Mass Index 24.3 Const General: comfortable HEENT Head: Yes normocephalic Neck Neck: Yes supple Chest Chest palpation & inspection: normal inspection of the chest Resp Effort & Inspection: normal respiratory effort Auscultation: diminished lung sounds Cardio Heart sounds: S1 normal heart sound present and S2 normal heart sound present GI Palpation (GI): Soft to palpation Skin General skin exam: no rashes or lesions noted Extrem General: Yes no clubbing, cyanosis or edema Results Reviewed Results Reviewed: [address] [address] [address] Scan Report Signed Patient: Maurice Riddle MR#: [id number] : 1945 Acct:[id number] Age/Sex: 79 / M ADM Date: 03/03/24 Loc: .ED Attending Dr: Ordering Physician: Shandra Feldman Date of Service: 03/03/24 Procedure(s): CT angio chest PE protocol Accession Number(s): [id number] cc: Shandra Feldman; Theron Sue DO~ EXAMINATION: CT ANGIOGRAM CHEST CLINICAL INFORMATION: Shortness of breath, elevated D dimer COMPARISON: None available. TECHNIQUE: Multiple axial images were obtained through the chest after the administration of 65 mL of Omnipaque 350 intravenous contrast. Extensive vascular post-processing including two-dimensional and three-dimensional reformatted images were created and reviewed on an independent workstation. This CT examination was performed using dose optimization techniques as appropriate, variously including the following: *Automated exposure control *Adjustment of mA and/or kV according to patient size (this includes techniques or standardized protocols for targeted exams where dose is matched to indication/reason for exam; i.e. extremities or head) *Use of iterative reconstruction technique DLP: 278 mGy-cm FINDINGS: PULMONARY ARTERIES: The main pulmonary arteries, lobar and segmental arterial branches show adequate enhancement. Main pulmonary trunk measures 386 Hounsfield units in mean attenuation. Progressive periocular occluding thrombus is seen in the left lingular lobar and superior segmental arteries. There is mild dilatation of the right ventricle but no significant displacement of the interventricular septum. The right ventricle/left ventricle ratio is 1.0, compatible with right heart strain. Branching order level of the most proximal level of pulmonary embolus: Left lingular Lobar artery LUNGS: The visualized lung parenchyma is clear. PLEURA: No pleural effusion or pneumothorax is seen. PERICARDIUM: No pericardial effusion is seen. MEDIASTINUM AND CHAPO: No abnormally enlarged mediastinal or hilar lymph nodes are seen. TRACHEOBRONCHIAL TREE: Trachea and bilateral mainstem bronchi are patent. THORACIC AORTA: The thoracic aorta is normal in size and smoothly patent. CORONARY ARTERY CALCIFICATIONS: Absent CHEST WALL AND LOWER NECK: The subcutaneous and muscular chest wall are intact with no focal lesion. No abnormal mass lesion could be seen in the visualized lower neck. BONES: Radiolucent lesions with polkadot appearance are seen in T6, left lateral T12 and partially visualized in left upper L1 vertebral bodies, compatible with cavernous hemangioma. No fracture or dislocation. No focal bone lesion diagnostic of metastatic disease could be seen in the thorax. VISUALIZED UPPER ABDOMEN: Bilateral adrenal glands are not enlarged. Right upper pole simple cyst is partially visualized, measuring 3.6 cm in diameter in the visualized portion, mean attenuation of 7.9 Hounsfield units. A 1.6 cm accessory spleen is seen medial to the splenic body. CT/CT angio chest PE protocol IMPRESSION: 1. Progressive occluding thrombus is seen in the left lingula lobar and superior segmental arteries with mild right heart strain. 2. No focal lung infiltrates or mediastinal lymphadenopathy are seen. 3. No thoracic aortic aneurysm or dissection is seen. 4. Vertebral hemangiomas are seen in T6, T12 and L1. 5. Right upper pole renal cortical simple cyst is found, for which no follow-up imaging is recommended. This critical result was discussed with GARETH Arroyo on 03/03/2024 at 1550 hours and it was ascertained that the content and urgency of this report was understood at the time of direct communication. Fleischner guidelines were followed. VTE: Positive. Electronically signed by: Ammy Farr MD 03/03/2024 03:52 PM EDT RP Dictated By: Ammy Farr Signed By: <Electronically signed by Ammy Farr in OV> 03/03/24 1552 Personally reviewed CTA with segmental PEs Assessment & Plan Assessment & Plan (1) Pulmonary embolism: Code(s): I26.99 - Other pulmonary embolism without acute cor pulmonale Category: Medical Qualifiers: Pulmonary embolism type: multiple subsegmental (without acute cor pulmonale) Qualified Code(s): I26.94 - Multiple subsegmental thrombotic pulmonary emboli without acute cor pulmonale Plan Experienced a unprovoked PE. Althouugh, he did have a RUE injury, but no clear findings of DVT. Therefore, need to make sure to assess for occult malignancies. REC: continue Eliquis BID ECHO to assess the RV strain noted on CTA VQ/CXR in 2 months to make sure resolution of the clots F/U 2-3 months Orders: Orders CA echo transthoracic complete 03/10/24 I26.99 - Other pulmonary embolism without acute cor pulmonale XR chest 2V 2 Months I26.99 - Other pulmonary embolism without acute cor pulmonale NM pul perfusion 2 Months I26.99 - Other pulmonary embolism without acute cor pulmonale Coding Level of Care Code New Pt Level 5 (25341) Diagnoses Multiple subsegmental pulmonary emboli without acute cor pulmonale I26.94 Pulmonary embolism type: multiple subsegmental (without acute cor pulmonale) Time Spent (min) 60
== END 2024-03-10 14:46 | disposition home or self-care (01) ==
PROVIDERS: PCP Internal Medicine; Referring Provider Internal Medicine; Visit Provider Hospitalist
DX: I26.94 Multiple subsegmental thrombotic pulmonary emboli without acute cor pulmonale (principal)
CPT/HCPCS: 99205

== ENCOUNTER → 2024-03-10 14:02 | Outpatient (BNVA) | payer MEDICARE, SELFPAY | PROVIDERS: PCP Internal Medicine; Referring Provider Internal Medicine; Visit Provider Hospitalist | DX: I26.94 Multiple subsegmental thrombotic pulmonary emboli without acute cor pulmonale (principal) | CPT/HCPCS: 99202 ==

== ENCOUNTER 2024-04-03 14:39 | Outpatient (REF) | payer MEDICARE, SELFPAY | END 2024-04-03 14:40 | disposition home or self-care (01) | LOC: HO.HMGCX 14:39 | PROVIDERS: PCP Internal Medicine; Visit Provider Hospitalist | DX: I26.94 Multiple subsegmental thrombotic pulmonary emboli without acute cor pulmonale (principal) | CPT/HCPCS: 71046 ==

== ENCOUNTER → 2024-04-04 13:46 | Outpatient (REF) | payer MEDICARE, SELFPAY ==
--- NOTE | ~2024-04-04 | NM_ITS ---
EXAMINATION: PULMONARY PERFUSION STUDY CLINICAL INFORMATION: Other pulmonary embolism without acute cor pulmonale. COMPARISON: No previous lung scan is available for comparison. Radiographs of the chest dated 04/03/2024 are available for comparison. CT angiogram of the chest dated 03/03/2024 is also available for comparison. TECHNIQUE: Following the intravenous injection of 4.0 mCi Tc-99m MAA, the lungs were imaged in the anterior and posterior, left and right lateral and SOPHIA, BURGER, LPO, and RPO projections using a gamma scintillation camera. FINDINGS: No segmental perfusion defects are present. There is homogeneous distribution of activity bilaterally. There are no focal anatomic appearing perfusion defects present. NM/NM pul perfusion IMPRESSION: Normal radionuclide lung perfusion scan. Electronically signed by: Wei Morrell MD 04/05/2024 09:10 AM EDT
== END ==
LOC: HO.NUCMED 13:46
PROVIDERS: PCP Internal Medicine; Visit Provider Hospitalist
DX: I26.99 Other pulmonary embolism without acute cor pulmonale (principal)
CPT/HCPCS: 78580; A9540

== ENCOUNTER → 2024-04-11 14:37 | Outpatient (REF) | payer MEDICARE, SELFPAY ==
--- NOTE | 2024-04-11 14:41 | CA_ITS ---
Transthoracic Echocardiogram Patient (Last, First, Middle): Maurice Riddle F Gender: Male Date of : 1945 Age: 79 Procedure Date: 04/11/2024 Procedure Type: Transthoracic Echocardiogram Location: OP Height: 170.18 cm Weight: 65.77 kg BSA: 1.76 m2 Heart Rate: bpm BP: 108 / 68 mmHg Blade Operator: TO Referring MD: Fred Simmons MD Nuclear Medicine Technician: Shawn Garcia MD Symptoms: I26.99 - Other pulmonary embolism without acute cor pulmonale Study Quality: Adequate ECG Rhythm: Sinus Conclusions: - 1. Normal LV ejection fraction of 60-65% with impaired relaxation filling pattern 2. Mild mitral regurgitation 3. Normal RV systolic pressure 4. No gross pericardial effusion Findings Left Ventricle Normal left ventricular size, thickness, and systolic function. The visually estimated ejection fraction is between 60-65%. Spectral Doppler is indicative of an impaired relaxation filling pattern. E/E prime ratio is between 8 and 15 consistent with indeterminate filling pressures. Right Ventricle Normal right ventricular cavity size and systolic function. Atria The left atrium is likely dilated. Interatrial shunt cannot be excluded. The right atrium is normal in size. Aortic Valve There is mild calcification of the aortic valve. There is mild thickening of the aortic valve. There is no aortic valve stenosis. There is no aortic valve regurgitation. Mitral Valve Normal mitral valve structure and function. There is mild mitral valve regurgitation. There is no mitral valve stenosis. Pulmonic Valve The pulmonic valve was not well visualized. Tricuspid Valve Likely normal tricuspid valve structure and function. There is trace tricuspid valve regurgitation. The right ventricular systolic pressure is normal. The right ventricular systolic pressure is 27 mmHg. Normal right atrial pressure. There is no evidence of pulmonary hypertension. Great Vessels All visible segments of the aorta are normal in size. The pulmonary artery was not well visualized. There is no dilatation of the ascending aorta measuring 3.10 cm. Small plaque is seen in the sino tubular ridge. Venous The inferior vena cava is normal in size and collapses greater than 50% with inspiration. Pericardium/Pleural There is no evidence of pericardial effusion. Prior Study Comparison no previous study in the last 5 years for comparison Measurements 2D Linear Measurements IVSd: 1.19 0.6-0.9/0.6-1.0 cm LVIDd: 3.45 3.9-5.3/4.2-5.9 cm LVIDd Index: 1.96 2.4-3.2/2.2-3.1 cm/m2 LVIDs: 2.45 2.0-3.6 cm LVPWd: 0.84 0.7-1.1 cm LA Diam: 3.60 2.7-3.8/3.0-4.0 cm LAIDs Index: 2.05 1.5-2.3 cm/m2 LV Mass: 128.72 67-162/88-224 g LV Mass Index: 73.14 43-95/49-115 g/m2 LVOT Diam: 2.20 3.0+(-)1.3 cm 2D Systolic Function EF 4C: 62.50 >55% EF 2C: 68.10 >55% EF BiP: 65.30 >55% Mitral Valve MV Pk E: 0.53 MV PK A: 0.61 MV Decel Time: 236.00 E/A: 0.90 E'Lateral: 9.68 E'Medial: 5.87 E/E' Med: 9.00 E/E' Lat: 5.40 PHT: 69.00 MVA PHT: 3.19 Decel Leake: 2.23 Aortic Valve AoV Pk Coleman: 1.32 AoV Mn Coleman: 0.96 AoV VTI: 0.29 AoV Pk Grad: 7.00 Aov Mn Grad: 4.00 JEAN Cont.VTI: 2.69 LVOT LVOT Pk Coleman: 1.02 LVOT Mn Coleman: 0.66 LVOT VTI: 0.20 LVOT Pk Grad: 4.00 LVOT Mn Grad: 2.00 LVOT Diam: 2.20 LVOT Area: 3.80 Diastolic Function MV Pk E: 0.53 MV Pk A: 0.61 E/A: 0.90 E'Medial: 5.87 E/E' Med: 9.00 E' Laterial: 9.68 E/E' Lat: 5.40 Right Ventricle TAPSE (mm): 23.00 TVS' Coleman: 12.70 Tricuspid Valve TR Pk Coleman: 2.47 TR Pk Grad: 24.00 RA Press: 3.00 RVSP: 27.00 Great Vessels Aorta Sinus of Valsalva: 3.14 2.0-3.5 cm Ao Asc: 3.10 2.1-3.4 cm Updated in Other Vendor System with Status of Final Shawn Garcia MD electronically signed on 04/11/2024 5:09:41 PM with status of Final
== END ==
LOC: HO.CARD 14:37
PROVIDERS: PCP Internal Medicine; Visit Provider Hospitalist
DX: I26.99 Other pulmonary embolism without acute cor pulmonale (principal)
CPT/HCPCS: 93306

== ENCOUNTER → 2024-04-11 14:41 | Outpatient (BNV) | payer MEDICARE, SELFPAY | PROVIDERS: PCP Internal Medicine; Visit Provider Internal Medicine Cardiovascular Disease | DX: I26.99 Other pulmonary embolism without acute cor pulmonale (principal); I35.8 Other nonrheumatic aortic valve disorders; I34.0 Nonrheumatic mitral (valve) insufficiency | CPT/HCPCS: 93306 ==

== ENCOUNTER 2024-04-19 13:16 | Outpatient (REF) | payer MEDICARE, SELFPAY ==
[2024-04-19 16:44] LABS: Anion Gap 11 (12-20); Blood Urea Nitrogen 21 mg/dL (9-16); Calcium 9.6 mg/dL (8.4-10.2); Carbon Dioxide 28 mmol/L (22-29); Chloride 106 mmol/L (96-108); Estimated Glomerular Filt Rate > 60; Glucose Random 72 mg/dL (60-115); Potassium 4.3 mmol/L (3.3-5.1); Sodium 141 mmol/L (135-145)
== END 2024-04-19 13:17 | disposition home or self-care (01) ==
LOC: HO.HMGCLDS 13:16
PROVIDERS: PCP Internal Medicine; Visit Provider Internal Medicine
DX: I26.99 Other pulmonary embolism without acute cor pulmonale (principal)
CPT/HCPCS: 36415; 80048

== ENCOUNTER 2024-06-13 05:58 | Outpatient (REF) | payer MEDICARE, SELFPAY ==
--- NOTE | ~2024-06-13 | CT_ITS ---
EXAMINATION: CT CHEST WITH CONTRAST CLINICAL INFORMATION: Acute pulmonary embolism. Concerning or cold malignancy. COMPARISON: CT angiogram chest PA protocol dated March 03, 2024. TECHNIQUE: Multidetector volumetric CT imaging of the chest was obtained after the administration of 85 mL of Omnipaque 350 intravenous contrast without immediate adverse reactions. Axial MIP volume rendering provided. Sagittal and coronal reformatted images were obtained. This CT examination was performed using dose optimization techniques as appropriate, variously including the following: *Automated exposure control *Adjustment of mA and/or kV according to patient size (this includes techniques or standardized protocols for targeted exams where dose is matched to indication/reason for exam; i.e. extremities or head) *Use of iterative reconstruction technique. Total dose: 102 mGy centimeter. FINDINGS: Inadequate smart prepped technique. Unable to evaluate the pulmonary artery or its main branches. Thoracic aorta is patent without focal stenosis or intimal flap. There is normal diameter. Calcified plaques throughout the thoracic aorta wall and its main branches. The left vertebral artery origin the from the aortic arch between the left CCA and left subclavian artery. Calcified plaques in the coronary arteries. No consolidation, pleural effusion or pneumothorax. No gross pulmonary nodules. No bronchiectasis. No honeycombing. Respiratory airways is patent. No pericardial effusion. No lymphadenopathy, mediastinum or perihilar. No lymphadenopathy in the axillary region. Heterogeneous enhancing nodular enlarged thyroid gland without gross dominant nodule. Sclerotic trabeculated vertebral body, T6 and T12. Multilevel marginal osteophyte formation and decreased intervertebral disc height. No acute cortical disruption or gross malalignment. The included clavicles and scapula are intact. The sternum is intact. No acute cortical disruption in the ribs. Small accessory spleen. Decreased enhancement pattern of the liver parenchyma. 3 cm exophytic fluid density upper pole right kidney. 1 cm fluid density cortical medullary junction midportion right kidney.. CT/CT chest w IV con IMPRESSION: Inadequate evaluation of the pulmonary artery or its main branches. No aneurysm or dissection, thoracic aorta. No acute airspace disease. Atherosclerosis and coronary artery disease. Bilateral renal cysts. Intraosseous hemangioma, T6 and T12. Probable hepatic steatosis. Fleischner guidelines were followed. Electronically signed by: Charbel Hendrix MD 06/13/2024 09:46 AM [facility]
--- NOTE | ~2024-06-13 | CT_ITS ---
EXAMINATION: CT ABDOMEN AND PELVIS WITH CONTRAST CLINICAL INFORMATION: Pulmonary embolism. Concerning for occult malignancy. COMPARISON: None available. TECHNIQUE: Multidetector volumetric images were obtained from the superior aspect of the liver through the pubic symphysis following administration 85 mL of Omnipaque 350 intravenous contrast. Sagittal and coronal reformatted images were obtained on the technologist's workstation. Oral contrast: No This CT examination was performed using dose optimization techniques as appropriate, variously including the following: *Automated exposure control *Adjustment of mA and/or kV according to patient size (this includes techniques or standardized protocols for targeted exams where dose is matched to indication/reason for exam; i.e. extremities or head) *Use of iterative reconstruction technique. Total dose: 279 mGy centimeters. FINDINGS: LUNG BASES: No acute airspace disease or gross pulmonary nodules in the included lungs. LIVER, GALLBLADDER, AND BILIARY TREE: Liver measures 15 cm. No gross enhancing lesion. Main portal veins, hepatic veins and intrahepatic portion of the IVC are patent. Gallbladder is fluid-filled without pericholecystic fluid collection or gallbladder wall thickening. No intrahepatic or extrahepatic biliary ductal dilatation. PANCREAS: No focal mass. No peripancreatic fluid collection. No main pancreatic ductal dilatation. SPLEEN: 9 cm. No focal mass. ADRENAL GLANDS: No nodular lesion. KIDNEYS AND URETERS: No enhancing renal mass. No hydronephrosis. 3 cm exophytic fluid density in the upper pole right kidney. Less than 1 cm fluid density lesion in the anterior midportion, right kidney. BLADDER: Fluid-filled nearly collapsed. GASTROINTESTINAL TRACT: Abundant stool. No intestinal obstruction pattern. Scattered diverticula, sigmoid colon. No pneumatosis intestinalis. No pneumoperitoneum. No ascites. Appendix is not identified. ABDOMINAL WALL: Status post right inguinal hernia repair with a mesh. Small fat-containing umbilical and periumbilical hernia. LYMPH NODES: No gross lymphadenopathy, mesenteric or retroperitoneal. VASCULAR: Mixed plaques throughout the abdominal aorta wall and iliac arteries without aneurysm or dissection. PELVIC VISCERA: 5 cm prominent prostate gland protruding upon the urinary bladder floor. OSSEOUS STRUCTURES: [Osteoarthrosis of the transverse process of L5 to the S1. Grade 1 anterolisthesis L4-5 on a degenerative basis resulting in bilateral neuroforamina stenosis. Multilevel thoracolumbar spondylosis. Trabeculated sclerotic marginated lesion centered T11 and T12. CT/CT abdomen pelvis w IV con IMPRESSION: No gross mass, peritoneal or retroperitoneal compartments. No gross lymphadenopathy. Multifocal renal cysts. Diverticular disease. Fat-containing umbilical and periumbilical hernia. Probable benign prostate hyperplasia. Consider Bertolotti syndrome. Grade 1 anterolisthesis L4-5 resulting in bilateral neuroforamina stenosis. Intraosseous hemangioma, T11 and T12. Fleischner guidelines were followed. Electronically signed by: Charbel Hendrix MD 06/13/2024 02:43 PM EST
--- OUTSIDE RECORDS SUMMARY | 2024-06-13 06:00 | XMS_ITS ---
Author Organization Theron Sue DO, FACP Address [address] [place] [id number] Care Team Providers Care Warp Dyeing Vat Tender Name Role Phone LinetteTheron Primary Care Provider MARIA DE JESUS GARAY Unavailable Unavailable ALLERGIES No Known Allergies REASON FOR VISIT 1 month f/u, Follow up Acute pulmonary embolism without acute cor pulmonale, unspecified pulmonary embolism type MEDICATIONS Medication SIG (Take, Route, Frequency, Duration) Notes Start Date End Date Status Carbidopa-Levodopa 25-100 MG 1.5 tablets Orally Three times a day Active Cholecalciferol 1000 UNIT 1 capsule Oral ly Once a day Active Celecoxib 200 MG 1 capsule with food as needed Orally Once a day 10/06/2023 Active Omeprazole 40 MG 1 capsule Orally Twi ce a day Active Finasteride 5 MG 1 tablet Orally Once a day Active Apixaban 5 MG 1 tablet Orally Twic e a day Active SOCIAL HISTORY Tobacco Use: Social History Observation Description Date Details (start date - stop date) Never Smoker NA - NA Sex Assigned At : Social History Observation Description Sex Assigned At Unknown Tobacco Use/Smoking Question Answer Notes Patient is a nonsmoker Additional Findings: Tobacco Non-User Cu rrent non-smoker, currently using no form of tobacco Alcohol Screen Question Answer Notes Did you have a drink contain ing alcohol in the past year? Yes How often did you have a dri nk containing alcohol in the past year? 2 to 4 times a month (2 points) How many drinks did you have on a typical day when you were drinking in the past year? 1 or 2 drinks (0 point) How often did you have 6 or more drinks on one occasion in the past year? Never (0 point) Points 2 Interpretation Negative VITAL SIGNS BMI 23.41 kg/m2 04/12/2024 Blood pressure systolic 100 mm Hg 04/12/20 24 Blood pressure diastolic 62 mm Hg 024 Height 68.00 in 04/12/2024 Weight 154 lbs 04/12/2024 Encounters Encounter Location Date Provider Diagnosis Theron Sue DO, [address] [phone] 04/12/2024 Theron Sue Acute pulmonary embo lism without acute cor pulmonale, unspecified pulmonary embolism type I26.99 ; Gastroesophageal reflux disease without esophagitis K21.9 ; Parkinsonism, unspecified Parkinsonism type G20.C ; Benign non-nodular prostatic hyperplasia without lower urinary tract symptoms N40.0 and Bilateral low back pain without sciatica, unspecified chronicity M54.50 ASSESSMENTS Encounter Date Diagnosis Assessment Notes Treatment Notes Treatment Clinical Notes 04/12/2024 Acute pulmonary embolism without acute cor pulmonale, unspecified pulmonary embolism type (ICD-10 - I26.99) Maurice is doing better. His BP has improved. As he had an unprovoked PE, occult malignancy needs to be ruled out. He will follow up with Pulmonary in early June. 04/12/2024 Gastroesophageal ref lux disease without esophagitis (ICD-10 - K21.9) 04/12/2024 Parkinsonism, unspecified Parkinsonism type (ICD-10 - G20.C) 04/12/2024 Benign non-nodular prostatic hyperplasia without lower urinary tract symptoms (ICD-10 - N40.0) 04/12/2024 Bilateral low back p ain without sciatica, unspecified chronicity (ICD-10 - M54.50) PLAN OF TREATMENT Medication Medication Name Sig Start Date Stop Date Notes Carbidopa-Levodopa 25-100 MG 1.5 tablets Orally Three times a day Cholecalciferol 1000 UNIT 1 capsule Orally Once a day Celecoxib 200 MG 1 capsule with food as needed Orally Once a day 10/06/2023 Omeprazole 40 MG 1 capsule Orally Twice a day Finasteride 5 MG 1 tablet Orally Once a day Apixaban 5 MG 1 tablet Orally Twice a day Treatment Notes Assessment Notes Acute pulmonary embolism wit hout acute cor pulmonale, unspecified pulmonary embolism type Maurice is doing better. His BP has improve d. As he had an unprovoked PE, occult malignancy needs to be ruled out. He will follow up with Pulmonary in early June. Pending Test Test Name Order Date CT chest wo/w con 04/12/2024 CT abdomen pelvis w con 04/12/2024 Progress Notes * Examination Category Sub-Category Detail Notes General Examination GENERAL APPEARANCE: in no ac krystal distress, well developed, well nourished HEAD: normocephalic, atrau matic HEART: no murmurs, regular rate and rhythm, S1, S2 normal LUNGS: clear to auscultatio n bilaterally ABDOMEN: normal, bowel sounds present, soft, nontender, nondistended SKIN: warm and dry EXTREMITIES: no edema, negative H omans sign PSYCH: alert, oriented, cog nitive function intact
--- OUTSIDE RECORDS SUMMARY | 2024-06-13 06:00 | XMS_ITS ---
Author Organization Theron Sue DO [facility] Address [address] [place] [phone] Care Team Providers Care Java [employer] Developer Name Role Phone Linette Theron Primary Care Provider [phone] MARIA DE JESUS GARAY Unavailable Unavailable RESULTS Component Value Reference Range Notes Basic Metabolic Panel Reviewed date:04/19/2024 05:23:07 PM Interpretation:Abnormal Performing Lab:[facility], [address] [place] [id number] Notes/Report: Sodium 141 135-145 mmol/L Potassium 4.3 3.3-5.1 mmol/L Chloride 106 96-108 mmol/L Carbon Dioxide 28 22-29 mmol/L Anion Gap 11 12-20 Blood Urea Nitrogen 21 9-16 mg/dL Creatinine 1.04 0.5-1.4 mg/dL Estimated Glomerular Filt Rate > 60 Chronic Kidney Disease: Estimated GFR < 60 mL/min/1.73m2 Severe Kidney Disease: Estimated GFR < 15 mL/min/1.73m2 Glucose Random 72 60-115 mg/dL Calcium 9.6 8.4-10.2 mg/dL REASON FOR VISIT Message Encounters Encounter Location Date Provider Diagnosis Theron Sue DO, [address] [phone] 04/12/2024 Theron Sue Acute pulmonary embolism without acute cor pulmonale, unspecified pulmonary embolism type I26.99 ASSESSMENTS Encounter Date Diagnosis Assessment Notes Treatment Notes Treatment Clinical Notes 04/12/2024 Acute pulmonary embolism without acute cor pulmonale, unspecified pulmonary embolism type (ICD-10 - I26.99) PLAN OF TREATMENT No Information
--- OUTSIDE RECORDS SUMMARY | 2024-06-13 06:01 | XMS_ITS | Patient Health Record ---
Author Organization Theron Sue DO, FAC Address [address] [place] [address] [id number] Care Team Providers Care Training Instructor Name Role Phone Theron Sue Primary Care Provider RED THOMAS Unavailable Unavailable ALLERGIES No Known Allergies RESULTS Component Value Reference Range Notes Complete Blood Count Auto Di ff Reviewed date:08/26/2023 03:25:35 PM Interpretation:Normal Performing Lab:[facility], [address] [place] [phone] Notes/Report: White Blood Count 5.5 4.8-10.8 X10*3/uL Red Blood Count 4.81 4.60-5.80 X10*6/uL Hemoglobin 14.6 14.0-18.0 g/dl Hematocrit 44.0 42.0-52.0 % Mean Corpuscular Volume 91.5 80.0-98.0 fL Mean Corpuscular Hemoglobin 30.4 27.0-33.0 pg Mean Corpuscular HGB Conc 33.2 31.0-36.0 g/dl Red Cell Distribution Width 12.9 11.0-16.0 % Platelet Count 206 160-400 X10*3/uL Mean Platelet Volume 9.7 9.4-12.4 fL Neutrophils Percent Auto 60.9 45-73 % Imm Gran Pct Auto 0.4 0.0-0.4 % Lymphocytes Percent Auto 29.3 20-40 % Monocytes Percent Auto 6.2 2-11 % Eosinophils Percent Auto 2.7 0-4 % Basophils Percent Auto 0.5 0-2 % NRBC Pct Auto 0.0 0.0-0.2 /100WBC Neutrophils Absolute Auto 3.3 2.0-8.3 x10*3/u L Imm Gran Abs Auto 0.02 0.00-0.03 X10*3/uL Lymphocytes Absolute Auto 1.6 1.2-4.9 X10*3/u L Monocytes Absolute Auto 0.3 0.1-1.2 X10*3/uL Eosinophils Absolute Auto 0.2 0.0-0.4 X10*3/u L Basophils Absolute Auto 0.0 0.0-0.2 X10*3/uL NRBC Abs Auto 0.000 0.0-0.012 X10*3/uL Comprehensive Rudd. Panel Fa st Reviewed date:08/26/2023 03:25:35 PM Interpretation:Abnormal Performing Lab:[address] [phone] Notes/Report: Sodium 141 135-145 mmol/L Potassium 4.1 3.3-5.1 mmol/L Chloride 106 96-108 mmol/L Carbon Dioxide 27 22-29 mmol/L Anion Gap 12 12-20 Blood Urea Nitrogen 21 9-16 mg/dL Creatinine 1.10 0.5-1.4 mg/dL Estimated Glomerular Filt Rate > 60 NOTE: For -Citizen Of [place] individuals, multiply the result by 1.210. Chronic Kidney Disease: Estimated GFR < 60 mL/min/1.73m2 Severe Kidney Disease: Estimated GFR < 15 mL/min/1.73m2 Glucose Fasting 97 60-99 mg/dL Calcium 9.3 8.4-10.2 mg/dL Bilirubin Total 1.1 0.0-1.0 mg/dL Aspartate Amino Transferase 16 5-37 U/L Alanine Aminotransferase 17 0-40 U/L Total Protein 7.1 6.5-8.0 g/dL Albumin Level 4.4 3.5-5.0 g/dL Alkaline Phosphatase 69 39-117 U/L Lipid Panel Reviewed date:08/26/2023 03:25:51 PM Interpretation:Abnormal Performing Lab:[address] [phone] Notes/Report: Triglycerides 82 <150 mg/dL Desirable Triglyceride: less than 150 mg/dL Borderline High Triglyceride 150-199 mg/dL High Triglyceride: 200-499 mg/dL Very High Triglyceride: greater than or equal to 5OO mg/dL Cholesterol 229 <200 mg/dL Desirable Cholesterol: less than 200 mg/dL Borderline High Cholesterol: 200-239 mg/dL High Cholesterol: greater than 239 mg/dL LDL Cholesterol Calculated 151 <100 mg/dL Desirable LDL: less than 100 mg/dL Near Optimal/Above Optimal LDL: 110-129 mg/dL Borderline High LDL: 130-159 mg/dL High LDL: 160-189 mg/dL Very High LDL: greater than or equal to 190 mg/dL HDL Cholesterol 62 >40 mg/dL Desirable HDL: greater than 40 mg/dL Note: This HDL assay may give artificially low results in patients with liver disease. Thyroid Stimulating Hormone Reviewed date:08/26/2023 03:25:35 PM Interpretation:Normal Performing Lab:[facility], [address] [place] [phone] Notes/Report: Thyroid Stimulating Hormone 1.03 0.32-4.0 uIU/ mL TSH 3rd Generation ([facility]) Electrocardiogram (EKG) - IH Reviewed date:03/01/2024 04:49:01 PM Interpretation:NSR with occasional PVC Performing Lab: Notes/Report: NSR with occasional PVC Complete Blood Count Auto Di ff Reviewed date:03/03/2024 10:56:41 AM Interpretation:Abnormal Performing Lab:[facility], [address] [place] [phone] Notes/Report: White Blood Count 5.5 4.8-10.8 X10*3/uL Red Blood Count 4.56 4.60-5.80 X10*6/uL Hemoglobin 13.9 14.0-18.0 g/dl Hematocrit 42.2 42.0-52.0 % Mean Corpuscular Volume 92.5 80.0-98.0 fL Mean Corpuscular Hemoglobin 30.5 27.0-33.0 pg Mean Corpuscular HGB Conc 32.9 31.0-36.0 g/dl Red Cell Distribution Width 13.6 11.0-16.0 % Platelet Count 212 160-400 X10*3/uL Mean Platelet Volume 9.9 9.4-12.4 fL Neutrophils Percent Auto 60.4 45-73 % Imm Gran Pct Auto 0.4 0.0-0.4 % Lymphocytes Percent Auto 27.9 20-40 % Monocytes Percent Auto 6.3 2-11 % Eosinophils Percent Auto 4.5 0-4 % Basophils Percent Auto 0.5 0-2 % NRBC Pct Auto 0.0 0.0-0.2 /100WBC Neutrophils Absolute Auto 3.3 2.0-8.3 x10*3/u L Imm Gran Abs Auto 0.02 0.00-0.03 X10*3/uL Lymphocytes Absolute Auto 1.5 1.2-4.9 X10*3/u L Monocytes Absolute Auto 0.4 0.1-1.2 X10*3/uL Eosinophils Absolute Auto 0.3 0.0-0.4 X10*3/u L Basophils Absolute Auto 0.0 0.0-0.2 X10*3/uL NRBC Abs Auto 0.000 0.0-0.012 X10*3/uL Complete Blood Count Auto Di ff Reviewed date:03/03/2024 09:59:55 AM Interpretation:Normal Performing Lab:[facility], [address] [place] [phone] Notes/Report: White Blood Count 5.9 4.8-10.8 X10*3/uL Red Blood Count 4.57 4.60-5.80 X10*6/uL Hemoglobin 14.0 14.0-18.0 g/dl Hematocrit 42.2 42.0-52.0 % Mean Corpuscular Volume 92.3 80.0-98.0 fL Mean Corpuscular Hemoglobin 30.6 27.0-33.0 pg Mean Corpuscular HGB Conc 33.2 31.0-36.0 g/dl Red Cell Distribution Width 13.5 11.0-16.0 % Platelet Count 197 160-400 X10*3/uL Mean Platelet Volume 9.4 9.4-12.4 fL Neutrophils Percent Auto 64.8 45-73 % Imm Gran Pct Auto 0.3 0.0-0.4 % Lymphocytes Percent Auto 24.8 20-40 % Monocytes Percent Auto 6.4 2-11 % Eosinophils Percent Auto 3.2 0-4 % Basophils Percent Auto 0.5 0-2 % NRBC Pct Auto 0.0 0.0-0.2 /100WBC Neutrophils Absolute Auto 3.8 2.0-8.3 x10*3/u L Imm Gran Abs Auto 0.02 0.00-0.03 X10*3/uL Lymphocytes Absolute Auto 1.5 1.2-4.9 X10*3/u L Monocytes Absolute Auto 0.4 0.1-1.2 X10*3/uL Eosinophils Absolute Auto 0.2 0.0-0.4 X10*3/u L Basophils Absolute Auto 0.0 0.0-0.2 X10*3/uL NRBC Abs Auto 0.000 0.0-0.012 X10*3/uL Comprehensive Rudd. Panel Fa st Reviewed date:03/03/2024 10:56:41 AM Interpretation:Abnormal Performing Lab:[facility], [address] [place] [phone] Notes/Report: Sodium 143 135-145 mmol/L Potassium 4.0 3.3-5.1 mmol/L Chloride 109 96-108 mmol/L Carbon Dioxide 29 22-29 mmol/L Anion Gap 9 12-20 Blood Urea Nitrogen 22 9-16 mg/dL Creatinine 1.07 0.5-1.4 mg/dL Estimated Glomerular Filt Rate > 60 NOTE: For -Citizen Of [place] individuals, multiply the result by 1.210. Chronic Kidney Disease: Estimated GFR < 60 mL/min/1.73m2 Severe Kidney Disease: Estimated GFR < 15 mL/min/1.73m2 Glucose Fasting 99 60-99 mg/dL Calcium 9.4 8.4-10.2 mg/dL Bilirubin Total 0.9 0.0-1.0 mg/dL Aspartate Amino Transferase 17 5-37 U/L Alanine Aminotransferase 14 0-40 U/L Total Protein 6.8 6.5-8.0 g/dL Albumin Level 4.2 3.5-5.0 g/dL Alkaline Phosphatase 78 39-117 U/L Liver Panel Reviewed date:03/03/2024 10:56:40 AM Interpretation:Normal Performing Lab:[facility], [address] [place] [phone] Notes/Report: Bilirubin Total 0.9 0.0-1.0 mg/dL Bilirubin Direct 0.3 0.0-0.5 mg/dL Aspartate Amino Transferase 17 5-37 U/L Alanine Aminotransferase 16 0-40 U/L Total Protein 7.2 6.5-8.0 g/dL Albumin Level 4.4 3.5-5.0 g/dL Alkaline Phosphatase 84 39-117 U/L Basic Metabolic Panel Reviewed date:03/03/2024 10:56:40 AM Interpretation:Abnormal Performing Lab:[facility], [address] [place] [phone] Notes/Report: Sodium 145 135-145 mmol/L Potassium 4.3 3.3-5.1 mmol/L Chloride 110 96-108 mmol/L Carbon Dioxide 28 22-29 mmol/L Anion Gap 11 12-20 Blood Urea Nitrogen 21 9-16 mg/dL Creatinine 1.04 0.5-1.4 mg/dL Creatinine Clr Calc Pharmacy 51.1 eGFR (calculated from the MDRD study equation) and eCrCl (calculated from the Cockcroft-Gault equation) are based on different parameters and may not yield comparable results. If eCrCl result is absurd, please check patient's height/weight. Estimated Glomerular Filt Rate > 60 NOTE: For -Citizen Of [place] individuals, multiply the result by 1.210. Chronic Kidney Disease: Estimated GFR < 60 mL/min/1.73m2 Severe Kidney Disease: Estimated GFR < 15 mL/min/1.73m2 Glucose Random 89 60-115 mg/dL Calcium 9.7 8.4-10.2 mg/dL Troponin-I High Sensitivity Reviewed date:03/03/2024 10:56:41 AM Interpretation:Normal Performing Lab:[facility], [address] [place] [phone] Notes/Report: Troponin-I High Sensitivity < 2.7 <3.5-35.0 ng/ L [facility] high sensitivity Troponin-I results should be used in conjunction with other diagnostic information such as ECG, clinical observations and information, and patient symptoms to aid in the diagnosis of DE. Lipid Panel Reviewed date:03/03/2024 10:56:41 AM Interpretation:Abnormal Performing Lab:[facility], [address] [place] [phone] Notes/Report: Triglycerides 66 <150 mg/dL Desirable Triglyceride: less than 150 mg/dL Borderline High Triglyceride 150-199 mg/dL High Triglyceride: 200-499 mg/dL Very High Triglyceride: greater than or equal to 5OO mg/dL Cholesterol 214 <200 mg/dL Desirable Cholesterol: less than 200 mg/dL Borderline High Cholesterol: 200-239 mg/dL High Cholesterol: greater than 239 mg/dL LDL Cholesterol Calculated 136 <100 mg/dL Desirable LDL: less than 100 mg/dL Near Optimal/Above Optimal LDL: 110-129 mg/dL Borderline High LDL: 130-159 mg/dL High LDL: 160-189 mg/dL Very High LDL: greater than or equal to 190 mg/dL HDL Cholesterol 65 >40 mg/dL Desirable HDL: greater than 40 mg/dL Note: This HDL assay may give artificially low results in patients with liver disease. Lipase Reviewed date:03/03/2024 10:56:40 AM Interpretation:Normal Performing Lab:[facility], [address] [place] [phone] Notes/Report: Lipase 35 8-78 U/L Thyroid Stimulating Hormone Reviewed date:03/03/2024 10:56:41 AM Interpretation:Normal Performing Lab:[facility], [address] [place] [phone] Notes/Report: Thyroid Stimulating Hormone 1.23 0.32-4.0 uIU/ mL TSH 3rd Generation ([facility]) SARS-CoV2/FLU/RSV Reviewed date:03/03/2024 01:11:05 PM Interpretation:Negative Performing Lab:[address] [phone] Notes/Report: Influenza A PCR NEGATIVE Negative Influenza B PCR NEGATIVE Negative Resp Syncy Virus RNA Qual PCR NEGATIVE Negative SARS COV2 PCR INHOUSE NEGATIVE Negative All test results must be correlated with clinical findings. Negative results do not preclude SARS-CoV2, influenza A virus, influenza B virus and/or RSV infection and should not be used as the sole basis for treatment or other patient management decisions. Negative results must be combined with clinical observations, patient history, and epidemiological information. This test has not been evaluated for monitoring treatment of infection. This test has been authorized by the FDA under an Emergency Use Authorization (EUA) for use by authorized laboratories. Testing performed on the [employer] GeneXpert utilizing real-time RT-PCR. All SARS CoV2 and positive influenza A/B results are reported to [facility] Dimer High Sensitivity Reviewed date:03/03/2024 12:11:37 PM Interpretation:Abnormal Performing Lab:[facility], [address] [place] [address] Notes/Report: D Dimer High Sensitivity 782 D-DIMER HS REFERENCE RANGE Note: Our assay reports D-Dimer Units (D-DU). The cut-off value for venous thromboembolic (VTE) disease is 230 ng/mL. This value has a very high negative predictive value when the patient has a low to moderate clinical probability of VTE. The upper limit of normal is 243 ng/mL. CT angio chest PE protocol Reviewed date:03/03/2024 04:08:32 PM Interpretation:Positive Performing Lab: Notes/Report: [facility] [address] [place] [address] CT Scan Report Signed Patient: Maurice Riddle MR#: [id number] : 1945 Acct:[id number] Age/Sex: 79 / M ADM Date: 03/03/24 Loc: .ED Attending Dr: Ordering Physician: Shandra Feldman Date of Service: 03/03/24 Procedure(s): CT angio chest PE protocol Accession Number(s): [id number] cc: Shandra Feldman; Theron Sue DO EXAMINATION: CT ANGIOGRAM CHEST CLINICAL INFORMATION: Shortness of breath, elevated D dimer COMPARISON: None available. TECHNIQUE: Multiple axial images were obtained through the chest after the administration of 65 mL of Omnipaque 350 intravenous contrast. Extensive vascular post-processing including two-dimensional and three-dimensional reformatted images were created and reviewed on an independent workstation. This CT examination was performed using dose optimization techniques as appropriate, variously including the following: *Automated exposure control *Adjustment of mA and/or kV according to patient size (this includes techniques or standardized protocols for targeted exams where dose is matched to indication/reason for exam; i.e. extremities or head) *Use of iterative reconstruction technique DLP: 278 mGy-cm FINDINGS: PULMONARY ARTERIES: The main pulmonary arteries, lobar and segmental arterial branches show adequate enhancement. Main pulmonary trunk measures 386 Hounsfield units in mean attenuation. Progressive periocular occluding thrombus is seen in the left lingular lobar and superior segmental arteries. There is mild dilatation of the right ventricle but no significant displacement of the interventricular septum. The right ventricle/left ventricle ratio is 1.0, compatible with right heart strain. Branching order level of the most proximal level of pulmonary embolus: Left lingular Lobar artery LUNGS: The visualized lung parenchyma is clear. PLEURA: No pleural effusion or pneumothorax is seen. PERICARDIUM: No pericardial effusion is seen. MEDIASTINUM AND CHAPO: No abnormally enlarged mediastinal or hilar lymph nodes are seen. TRACHEOBRONCHIAL TREE: Trachea and bilateral mainstem bronchi are patent. THORACIC AORTA: The thoracic aorta is normal in size and smoothly patent. CORONARY ARTERY CALCIFICATIONS: Absent CHEST WALL AND LOWER NECK: The subcutaneous and muscular chest wall are intact with no focal lesion. No abnormal mass lesion could be seen in the visualized lower neck. BONES: Radiolucent lesions with polkadot appearance are seen in T6, left lateral T12 and partially visualized in left upper L1 vertebral bodies, compatible with cavernous hemangioma. No fracture or dislocation. No focal bone lesion diagnostic of metastatic disease could be seen in the thorax. VISUALIZED UPPER ABDOMEN: Bilateral adrenal glands are not enlarged. Right upper pole simple cyst is partially visualized, measuring 3.6 cm in diameter in the visualized portion, mean attenuation of 7.9 Hounsfield units. A 1.6 cm accessory spleen is seen medial to the splenic body. CT/CT angio chest PE protocol IMPRESSION: 1. Progressive occluding thrombus is seen in the left lingula lobar and superior segmental arteries with mild right heart strain. 2. No focal lung infiltrates or mediastinal lymphadenopathy are seen. 3. No thoracic aortic aneurysm or dissection is seen. 4. Vertebral hemangiomas are seen in T6, T12 and L1. 5. Right upper pole renal cortical simple cyst is found, for which no follow-up imaging is recommended. This critical result was discussed with GARETH Arroyo on 03/03/2024 at 1550 hours and it was ascertained that the content and urgency of this report was understood at the time of direct communication. Fleischner guidelines were followed. VTE: Positive. Electronically signed by: Ammy Farr MD 03/03/2024 03:52 PM EDT Dictated By: Ammy Farr Signed By: <Electronically signed by Ammy Farr in OV> 03/03/24 1552 DD/ 1223 TD/TT: 03/03/24 1240 Interactive Graphic Designer: XR ribs RT min 3V w CXR1V Reviewed date:03/03/2024 04:03:30 PM Interpretation:Negative Performing Lab: Notes/Report: [address] [address] XRay Report Signed Patient: Maurice Riddle MR#: [id number] : 1945 Acct:[id number] Age/Sex: 79 / M ADM Date: 03/03/24 Loc: HO.ED Attending Dr: Ordering Physician: Red Thomas DO Date of Service: 03/03/24 Procedure(s): XR ribs RT min 3V w CXR1V Accession Number(s): [id number] cc: Theron Sue DO; Red Thomas DO EXAMINATION: XR CHEST XR RIBS, RIGHT CLINICAL INFORMATION: Pain/fall Pain on right side of ribs COMPARISON: Chest radiograph 05/11/2019 TECHNIQUE: 1 view of the chest and 3 views of the right ribs were obtained. FINDINGS: Lungs are adequately expanded. There is no focal consolidation. No pleural effusions or pneumothorax. The cardiomediastinal silhouette is within normal limits. No acute osseous abnormality. No displaced right rib fractures are identified. XR/XR ribs RT min 3V w CXR1V IMPRESSION: 1. No acute pulmonary disease. 2. No displaced right rib fractures are identified. Electronically signed by: Bautista Smith MD 03/03/2024 12:18 PM EDT Dictated By: Bautista Smith Signed By: <Electronically signed by Bautista Smith in OV> 03/03/24 1218 DD/ 0938 TD/TT: 03/03/24 1028 Interactive Graphic Designer: Troponin-I High Sensitivity Reviewed date:03/03/2024 01:11:27 PM Interpretation:Normal Performing Lab:[facility], [address] [place] [phone] Notes/Report: Troponin-I High Sensitivity < 2.7 <3.5-35.0 ng/ L [facility] high sensitivity Troponin-I results should be used in conjunction with other diagnostic information such as ECG, clinical observations and information, and patient symptoms to aid in the diagnosis of DE. US venous duplex UE BI Reviewed date:03/09/2024 03:07:54 PM Interpretation:Negative Performing Lab: Notes/Report: [address] [place] [address] Ultrasound Report Signed Patient: Maurice Riddle MR#: [id number] : 1945 Acct:[id number] Age/Sex: 79 / M ADM Date: 03/09/24 Loc: .[facility] Attending Dr: Theron Sue DO Ordering Physician: Theron Sue DO Date of Service: 03/09/24 Procedure(s): US venous duplex UE BI Accession Number(s): [id number] cc: Theron Sue DO EXAMINATION: US TRIPLEX UPPER EXTREMITY, BILATERAL CLINICAL INFORMATION: Acute PE COMPARISON: None available. TECHNIQUE: Color-flow triplex imaging with spectral analysis and compression Doppler was performed on both upper extremities. FINDINGS: The bilateral internal jugular, subclavian, and axillary veins are patent and free of thrombus. The imaged segments of the brachiocephalic veins are patent. Spectral doppler waveforms are normal. The brachial, basilic, cephalic, radial, and ulnar veins are patent and compressible. US/US venous duplex UE BI IMPRESSION: No evidence of deep venous thrombosis involving the bilateral upper extremities. Electronically signed by: Kirk Cavanaugh MD 03/09/2024 02:24 PM EDT Dictated By: Kirk Cavanaugh MD Signed By: <Electronically signed by Kirk Cavanaugh MD in OV> 03/09/24 1424 DD/ 1317 TD/TT: 03/09/24 1347 Interactive Graphic Designer: US venous duplex LE BI Reviewed date:03/09/2024 03:06:59 PM Interpretation:Negative Performing Lab: Notes/Report: [address] [place] [address] Ultrasound Report Signed Patient: Maurice Riddle MR#: [id number] : 1945 Acct:[id number] Age/Sex: 79 / M ADM Date: 03/09/24 Loc: HO.HMGCX Attending Dr: Theron Sue DO Ordering Physician: Theron Sue DO Date of Service: 03/09/24 Procedure(s): US venous duplex LE BI Accession Number(s): [id number] cc: Theron Sue DO EXAMINATION: US TRIPLEX LOWER EXTREMITY, BILATERAL CLINICAL INFORMATION: Acute PE COMPARISON: None available. TECHNIQUE: Color-flow triplex imaging with spectral analysis and compression Doppler were performed on the bilateral lower extremities. FINDINGS: Respiratory variation, normal compression and augmented flow are noted throughout the bilateral lower extremities. The visualized common femoral vein, superficial femoral vein, profunda femoral vein, popliteal vein and midcalf peroneal and posterior tibial venous segments show no evidence of deep venous thrombosis bilaterally. There is no Dee's cyst. US/US venous duplex LE BI IMPRESSION: No evidence of deep venous thrombosis involving the bilateral lower extremities. Electronically signed by: Kirk Cavanaugh MD 03/09/2024 02:24 PM EDT RP Dictated By: Kirk Cavanaugh MD Signed By: <Electronically signed by Kirk Cavanaugh MD in OV> 03/09/24 1424 DD/ 1350 TD/TT: 03/09/24 1405 Interactive Graphic Designer: XR chest 2V Reviewed date:05/30/2024 12:29:57 PM Interpretation:Normal Performing Lab: Notes/Report: [facility] [place] [address] XRay Report Signed Patient: Maurice Riddle MR#: [id number] : 1945 Acct:[id number] Age/Sex: 79 / M ADM Date: 04/03/24 Loc: HO.HMGCX Attending Dr: Fred Simmons MD Ordering Physician: Fred Simmons MD Date of Service: 04/03/24 Procedure(s): XR chest 2V Accession Number(s): [id number] cc: Theron Sue DO; Fred Simmons MD EXAMINATION: XR CHEST 2 VIEWS CLINICAL INFORMATION: Multiple subsegmental thrombotic pulmonary emboli without acute I26.94. COMPARISON: XR Chest 05/11/2019 TECHNIQUE: 2 views of the chest were obtained. FINDINGS: No significant abnormality is noted involving the heart, lungs, mediastinum, bony thorax or soft tissues. XR/XR chest 2V IMPRESSION: Unremarkable examination. Electronically signed by: Kirk Cavanaugh MD 05/30/2024 11:13 AM EST RP Dictated By: Kirk Cavanaugh MD Signed By: <Electronically signed by Kirk Cavanaugh MD in OV> 05/30/24 1113 DD/ 1443 TD/TT: 04/03/24 1446 Interactive Graphic Designer: NM pul perfusion Reviewed date:04/05/2024 11:16:34 AM Interpretation:Normal Performing Lab: Notes/Report: [address] [address] Nuclear Medicine Report Signed Patient: Maurice Riddle MR#: [id number] : 1945 Acct:[id number] Age/Sex: 79 / M ADM Date: 04/04/24 Loc: [facility] Attending Dr: Fred Simmons MD Ordering Physician: Fred Simmons MD Date of Service: 04/04/24 Procedure(s): NM pul perfusion Accession Number(s): [id number] cc: Theron Sue DO; Fred Simmons MD EXAMINATION: PULMONARY PERFUSION STUDY CLINICAL INFORMATION: Other pulmonary embolism without acute cor pulmonale. COMPARISON: No previous lung scan is available for comparison. Radiographs of the chest dated 04/03/2024 are available for comparison. CT angiogram of the chest dated 03/03/2024 is also available for comparison. TECHNIQUE: Following the intravenous injection of 4.0 mCi Tc-99m MAA, the lungs were imaged in the anterior and posterior, left and right lateral and SOPHIA, BURGER, LPO, and RPO projections using a gamma scintillation camera. FINDINGS: No segmental perfusion defects are present. There is homogeneous distribution of activity bilaterally. There are no focal anatomic appearing perfusion defects present. NM/NM pul perfusion IMPRESSION: Normal radionuclide lung perfusion scan. Electronically signed by: Wei Morrell MD 04/05/2024 09:10 AM EDT RP Dictated By: Wei Morrell MD Signed By: <Electronically signed by Wei Morrell MD in OV> 04/05/24 0910 DD/ 1348 TD/TT: 04/04/24 1430 Interactive Graphic Designer: AJIT Basic Metabolic Panel Reviewed date:04/19/2024 05:23:07 PM Interpretation:Abnormal Performing Lab:[facility], [address] [place] [phone] Notes/Report: Sodium 141 135-145 mmol/L Potassium 4.3 [...] mg/dL Calcium 9.6 8.4-10.2 mg/dL REASON FOR REFERRAL Reason Pilonidal cyst Diagnosis 1 Pilonidal cyst (L05. 91) Referral Organization Theron Daly FACP Referring Provider First Name Theron Referring Provider Last Name Linette Referring Provider Speciality Internal edicine Referred Provider Oscar Frances Referred Provider Specialty Surgery General Notes Lanie Augustin 11:54:13 AM EDT > referral faxed; patient notified. Referral Priority Routine Referral Appointment Date 02/21/2024 Reason Pulmonary embolism Diagnosis 1 Acute pulmonary embo lism without acute cor pulmonale, unspecified pulmonary embolism type (I26.99) Referral Organization Theron Daly FACP Referring Provider First Name Theron Referring Provider Last Name Linette Referring Provider Speciality Internal edicine Referred Provider Fred Simmons Referred Provider Specialty Pulmonary Di seases General Notes Lanie Augustin 03:26:22 PM EDT > URGENT REFERRAL - PLEASE REVIEW FOR EXPEDITED APPOINTMENT. THANKS FOR YOUR HELP! (Additional records to follow by separate fax.), Lanie Augustin 03/08/2024 03:27:18 PM EDT > referral and records faxed. S/w specialists' office to flag patient as priority. Referral Priority Routine Referral Appointment Date 03/10/2024 MEDICATIONS Medication SIG (Take, Route, Frequency, Duration) Notes Start Date End Date Status Apixaban 5 MG 1 tablet Orally Twic e a day Active Carbidopa-Levodopa 25-100 MG 1.5 tablets Orally Three times a day Active Cholecalciferol 1000 UNIT 1 capsule Oral ly Once a day Active Celecoxib 200 MG 1 capsule with food as needed Orally Once a day 10/06/2023 Active Omeprazole 40 MG 1 capsule Orally Twi ce a day Active Finasteride 5 MG 1 tablet Orally Once a day Active IMMUNIZATIONS Vaccine Route Administration Date Status Comme nts Td (adult) Unknown 09/21/2011 Administered Influenza IM Intramuscular 06/24/2012 Administered Influenza IM Intramuscular 03/02/2013 Administered Influenza IM Intramuscular 03/06/2014 Administered Pneumococcal - PPSV23 IM Intramuscular 05/01/2014 Administ ered Influenza Quad IM Intramuscular 03/08/2015 Administered Influenza High Dose IM Intramuscular 02/20/2016 Administer ed PCV 13 IM Intramuscular 05/07/2016 Administered Influenza Quad IM Intramuscular 04/06/2017 Administered Influenza Quad IM Intramuscular 04/05/2018 Administered Influenza Quad IM Intramuscular 04/04/2019 Administered Influenza Quad IM Intramuscular 04/16/2020 Administered Influenza High Dose IM Intramuscular 03/18/2021 Administer ed COVID-19 Pfizer BioNTech Unknown 07/10/2020 Administere d COVID-19 Pfizer BioNTech Unknown 07/31/2020 Administere d COVID-19 Pfizer BioNTech Unknown 04/08/2021 Administere d Influenza High Dose IM Intramuscular 03/10/2022 Administer ed COVID-19 Pfizer Bivalent Unknown 05/11/2022 Administere d Influnza High Dose Quad Unknown 03/10/2022 Administered Influenza Quad IM Intramuscular 04/14/2023 Administered Influenza Quad Unknown 04/14/2023 Administered SOCIAL HISTORY Tobacco Use: Social History Observation [...] Never (0 point) Points 2 Interpretation Negative PROBLEMS Problem Type ICD Code Onset Dates Problem Status W/U Status Risk SNOMED Code Notes Problem Environmental allerg ies (Z91.09) Active confirmed 675196114 Problem Globus hystericus (F45.8) Active confirmed 80232222 Problem Gastroesophageal ref lux disease without esophagitis (K21.9) Active confirmed 579925735 Problem Benign non-nodular prostatic hyperplasia without lower urinary tract symptoms (N40.0) Active confirmed 933742868 Problem Hypercholesterolemia (E78.00) Active confirmed 27404295 Problem Bilateral low back pain, unspecified chronicity, with sciatica presence unspecified (M54.5) Active confirmed 469286014 Problem 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) Active confirmed 065897355 Problem Extrasystoles (I49.49) Active confirmed 86143684 Problem Gait abnormality (R26.9) Active confirmed 61494640 Problem Right inguinal pain (R10.31) Active confirmed 945062902 Problem Parkinsonism, unspecified Parkinsonism type (G20) Active confirmed 01289313 Problem Renal mass, right (N28.89) Active confirmed 287831734 Problem Bilateral low back p ain without sciatica, unspecified chronicity (M54.50) Active confirmed 500503353 Problem Parkinsonism, unspecified Parkinsonism type (G20.C) Active confirmed VITAL SIGNS Blood pressure diastolic 62 mm Hg 04/12/2024 Height 68.00 in 04/12/2024 Blood pressure systolic 100 mm Hg 04/12/2024 Weight 154 lbs 04/12/2024 BMI 23.41 kg/m2 04/12/2024 Encounters Encounter Location Date Provider Diagnosis Theron Sue DO [facility] [address], [place] [id number] 06/30/2023 Theron Sue DO, FACP [address], [place] [id number] 09/01/2023 Theron Sue Gastroesophageal ref lux disease without esophagitis K21.9 ; Parkinson's disease, unspecified whether dyskinesia present, unspecified whether manifestations fluctuate G20.A1 and Benign non-nodular prostatic hyperplasia without lower urinary tract symptoms N40.0 Theron Sue DO, [address] [id number] 10/06/2023 Theron Sue Gastroesophageal ref lux disease without esophagitis K21.9 ; Benign non-nodular prostatic hyperplasia without lower urinary tract symptoms N40.0 ; Bilateral low back pain without sciatica, unspecified chronicity M54.50 ; Parkinsonism, unspecified Parkinsonism type G20.C and Hypercholesterolemia E78.00 Theron Sue DO, [address] [id number] 03/01/2024 Theron Sue Parkinsonism, unspec ified Parkinsonism type G20.C ; Gastroesophageal reflux disease without esophagitis K21.9 ; Benign non-nodular prostatic hyperplasia without lower urinary tract symptoms N40.0 ; Bilateral low back pain without sciatica, unspecified chronicity M54.50 and Hypotension, unspecified hypotension type I95.9 Theron Sue DO, [address] [id number] 04/12/2024 Theron Sue Acute pulmonary embo lism without acute cor pulmonale, unspecified pulmonary embolism type I26.99 ; Gastroesophageal reflux disease without esophagitis K21.9 ; Parkinsonism, unspecified Parkinsonism type G20.C ; Benign non-nodular prostatic hyperplasia without lower urinary tract symptoms N40.0 and Bilateral low back pain without sciatica, unspecified chronicity M54.50 Theron Sue DO, [address] [id number] 03/08/2024 Theron Sue Acute pulmonary embo lism without acute cor pulmonale, unspecified pulmonary embolism type I26.99 ; Gastroesophageal reflux disease without esophagitis K21.9 ; Benign non-nodular prostatic hyperplasia without lower urinary tract symptoms N40.0 ; Parkinsonism, unspecified Parkinsonism type G20.C and Bilateral low back pain without sciatica, unspecified chronicity M54.50 Theron Sue DO, [address] [id number] 08/25/2023 Theron Sue Hypercholesterolemia E78.00 ; Extrasystoles I49.49 ; Gastroesophageal reflux disease without esophagitis K21.9 and Benign non-nodular prostatic hyperplasia without lower urinary tract symptoms N40.0 Theron Sue DO, [address] [id number] 12/24/2023 Theron Sue Theron Sue DO, [facility] [address], [place] [id number] 02/22/2024 Theron Sue Extrasystoles I49.49 and Hypercholesterolemia E78.00 Theron Sue DO, [facility] [address], [place] [id number] 03/03/2024 Theron Bennettman Theron Sue DO, [address] [id number] 03/14/2024 Theron Sue Theron Sue DO, [facility] [address], [place] [id number] 03/21/2024 Theron Linette Theron Sue DO, [address] [id number] 03/28/2024 Theron Sue Acute pulmonary embo lism without acute cor pulmonale, unspecified pulmonary embolism type I26.99 Theron Sue DO, [address] [id number] 04/12/2024 Theron Sue Acute pulmonary embo lism without acute cor pulmonale, unspecified pulmonary embolism type I26.99 Theron Sue DO, [facility] [address], [place] [id number] 04/21/2024 Theron Sue DO, [address] [id number] 02/16/2024 Theron Sue Pilonidal cyst L05.9 1 ASSESSMENTS Encounter Date Diagnosis Assessment Notes Treatment Notes Treatment Clinical Notes 09/01/2023 Gastroesophageal ref lux disease without esophagitis (ICD-10 - K21.9) 09/01/2023 Parkinson's disease, unspecified whether dyskinesia present, unspecified whether manifestations fluctuate (ICD-10 - G20.A1) 10/06/2023 Gastroesophageal ref lux disease without esophagitis (ICD-10 - K21.9) 10/06/2023 Benign non-nodular prostatic hyperplasia without lower urinary tract symptoms (ICD-10 - N40.0) 03/01/2024 Gastroesophageal ref lux disease without esophagitis (ICD-10 - K21.9) 03/01/2024 Parkinsonism, unspec ified Parkinsonism type (ICD-10 - G20.C) 04/12/2024 Gastroesophageal ref lux disease without esophagitis (ICD-10 - K21.9) 04/12/2024 Acute pulmonary embo lism without acute cor pulmonale, unspecified pulmonary embolism type (ICD-10 - I26.99) Maurice is doing better. His BP has improved. As he had an unprovoked PE, occult malignancy needs to be ruled out. He will follow up with Pulmonary in early June. 03/08/2024 Gastroesophageal ref lux disease without esophagitis (ICD-10 - K21.9) 03/08/2024 Acute pulmonary embo lism without acute cor pulmonale, unspecified pulmonary embolism type (ICD-10 - I26.99) Check BP in the office weekly 08/25/2023 Hypercholesterolemia (ICD-10 - E78.00) 08/25/2023 Extrasystoles (ICD-1 0 - I49.49) 02/22/2024 Hypercholesterolemia (ICD-10 - E78.00) 02/22/2024 Extrasystoles (ICD-1 0 - I49.49) 03/28/2024 Acute pulmonary embo lism without acute cor pulmonale, unspecified pulmonary embolism type (ICD-10 - I26.99) 04/12/2024 Acute pulmonary embo lism without acute cor pulmonale, unspecified pulmonary embolism type (ICD-10 - I26.99) 02/16/2024 Pilonidal cyst (ICD- 10 - L05.91) This appears to be either a stage 1 pressure ulcer or a pilonidal cyst. I have advised Maurice to sit only on padded surfaces. I will refer him to Surgery 09/01/2023 Benign non-nodular prostatic hyperplasia without lower urinary tract symptoms (ICD-10 - N40.0) 10/06/2023 Bilateral low back p ain without sciatica, unspecified chronicity (ICD-10 - M54.50) 03/01/2024 Benign non-nodular prostatic hyperplasia without lower urinary tract symptoms (ICD-10 - N40.0) 04/12/2024 Parkinsonism, unspec ified Parkinsonism type (ICD-10 - G20.C) 03/08/2024 Benign non-nodular prostatic hyperplasia without lower urinary tract symptoms (ICD-10 - N40.0) 08/25/2023 Gastroesophageal ref lux disease without esophagitis (ICD-10 - K21.9) 10/06/2023 Parkinsonism, unspec ified Parkinsonism type (ICD-10 - G20.C) 03/01/2024 Bilateral low back p ain without sciatica, unspecified chronicity (ICD-10 - M54.50) 04/12/2024 Benign non-nodular prostatic hyperplasia without lower urinary tract symptoms (ICD-10 - N40.0) 03/08/2024 Parkinsonism, unspec ified Parkinsonism type (ICD-10 - G20.C) 08/25/2023 Benign non-nodular prostatic hyperplasia without lower urinary tract symptoms (ICD-10 - N40.0) 10/06/2023 Hypercholesterolemia (ICD-10 - E78.00) 03/01/2024 Hypotension, unspeci fied hypotension type (ICD-10 - I95.9) Increase fluid intake. Eat more salty foods. Check previously requested lab work tomorrow. Return to the office in 2 days for BP check 04/12/2024 Bilateral low back p ain without sciatica, unspecified chronicity (ICD-10 - M54.50) 03/08/2024 Bilateral low back p ain without sciatica, unspecified chronicity (ICD-10 - M54.50) PLAN OF TREATMENT Pending Test Test Name Order Date CT chest wo/w con 04/12/2024 CT abdomen pelvis w con 04/12/2024 Insurance Providers Payer Name Payer Address Payer Phone Subscriber Number Group Number Insured Name Patient Relationship to Insured Coverage Start Date Coverage End Date MEDICARE [address] [place] [address] [id number] Maurice Ocasio Self - patient is the insured Proenza Schouer [address] [place] [address] [id number] Maurice Ocasio Self - patient is the insured MEDICAL (GENERAL) HISTORY Medical History History ICD Code gastroesophageal reflux disease (GERD) hypercholesterolemia basal cell carcinoma, nose plantar fasciitis carpal tunnel syndrome neck irradiation hemorrhoids tubular adenoma vitamin B12 deficiency diverticulosis varicella zoster Benign prostate hyperplasia 600.00 allergies Globus hystericus Joint stiffness M25.60 Other constipation K59.09 Parkinsonism, unspecified Parkinsonism t ype G20 Gait abnormality R26.9 Acute pulmonary embolism wit hout acute cor pulmonale, unspecified pulmonary embolism type I26.99 Surgical History Surgery Date(Month/Year) tonsillectomy herniorraphy, inguinal, bilateral cyst removal, right thigh, a calcifying epithelioma, a pilomatricoma (Dr. Georges Lee) 11/2005 hemorrhoidal banding herniorraphy, right recurrent 04/2018
--- OUTSIDE RECORDS SUMMARY | 2024-06-13 06:01 | XMS_ITS | Patient Health Record ---
Author Organization [facility] Address [address] [facility] [place] [address] Care Team Providers Care Traffic Incident Management Manager Name Role Phone Theron Sue MD Primary Care Provider Unavail Keegan Dye Unavailable [phone] Allergies No Known Allergies Reason For Referral No Information Medications Medication SIG (Take, Route, Fr equency, Duration) Notes Start Date End Date Status Fluticasone Furoate Active Omeprazole 40 MG 1 capsule 30 minutes before morning meal Orally Once a day for 30 day(s) Active Diclofenac Sodium 75 MG 1 tablet Orally Twice a day for 30 day(s) Active Finasteride 5 MG 1 tablet Orally Once a day for 30 day(s) Active Carbidopa-Levodopa A ctive Social History Tobacco Use: Social History Observation Description Date Details (start date - stop date) Never Smoker NA - NA Tobacco Use/Smoking Question Answer Notes Are you a: nonsmoker Alcohol Screen Question Answer Notes Did you have a drink contain ing alcohol in the past year? Yes How often did you have a dri nk containing alcohol in the past year? Monthly or less (1 point) How often did you have 6 or more drinks on one occasion in the past year? Monthly (2 points) Points 3 Interpretation Negative Tobacco use other than smoking: Question Answer Notes Are you an other tobacco user? 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) Active confirmed Problem Chronic ulcer of foot (275796025) Non-pressure chronic ulcer of other part of left foot with fat layer exposed (L97.522) Active confirmed Problem Acquired hallux valgus (72224649) Hallux valgus (acquired), right foot (M20.11) Active confirmed Problem Non-pressure chronic ulcer of other part of left foot limited to breakdown of skin (L97.521) Active confirmed Problem Non-pressure chronic ulcer of other part of right foot limited to breakdown of skin (L97.511) Active confirmed Problem Acquired hammer toe of right foot (3894691092265 105) Other hammer toe(s) (acquired), right foot (M20.41) Active confirmed Problem Acquired hammer toe of left foot (2151192329436 103) Other hammer toe(s) (acquired), left foot (M20.42) Active confirmed Plan Of Treatment Pending Test Test Name Order Date [id number] SKIN/TISSUE 11/26/2021 Insurance Providers Payer Name Payer Address Payer Phone Subscriber Number Group Number Insured Name Patient Relationship to Insured Coverage Start Date Coverage End Date Medicare National [employer] [address] [place] [address] [id number] Maurice Ocasio Self - patient [facility] the insured [facility] [address] [place] [address] [phone] [id number] Maurice Ocasio Self - patient is the insured Medical (General) History Medical History History ICD Code Headaches/Migraines Hiatal hernia Macular degeneration Reflux ( GERD) PVC Surgical History Surgery Date(Month/Year) hernia
[2024-06-13] MEDS: iohexoL 350 MG/ML 100 ML INFUS..BTL IV (09:16)
[2024-06-13] MEDS: Barium Sulfate Oral (Berry) 450 ML ORAL.SUSP PO (09:17)
[2024-06-13] MEDS: Barium Sulfate Oral (Berry) 450 ML ORAL.SUSP 900 ML PO (09:17)
[2024-06-13 16:18] LABS: Creatinine POC 1.2 mg/dL (0.5-1.4); GFR POC > 60
== END 2024-06-13 05:59 | disposition home or self-care (01) ==
LOC: HO.CT 05:58
PROVIDERS: PCP Internal Medicine; Visit Provider Internal Medicine
DX: I26.99 Other pulmonary embolism without acute cor pulmonale (principal)
CPT/HCPCS: 71260; 74177; 82565; Q9967

== ENCOUNTER → 2024-06-13 08:45 | Outpatient (BNV) | payer MEDICARE, SELFPAY | PROVIDERS: PCP Internal Medicine; Visit Provider Radiology Diagnostic Radiology | DX: I26.09 Other pulmonary embolism with acute cor pulmonale (principal) | CPT/HCPCS: 71260; 74177 ==

== ENCOUNTER 2024-06-16 12:57 | Outpatient (AMB) | payer MEDICARE, SELFPAY ==
--- OUTSIDE RECORDS SUMMARY | 2024-06-16 12:59 | XMS_ITS ---
Author Organization Theron Sue DO, [facility] Address [address] [place] [phone] Care Team Providers Care Pole Frame Construction Worker Name Role Phone Theron Sue Primary Care Provider MARIA DE JESUS GARAY Unavailable REASON FOR VISIT Message to self Encounters Encounter Location Date Provider Diagnosis Theron Sue DO, FACP [address] [place] [phone] 04/21/2024 Theron Sue PLAN OF TREATMENT No Information
--- OUTSIDE RECORDS SUMMARY | 2024-06-16 12:59 | XMS_ITS ---
Author Organization Theron Sue DO [facility] Address [address] [place] [phone] Care Team Providers Care Nib Finisher Name Role Phone Linette Theron Primary Care Provider MARIA DE JESUS GARAY Unavailable Unavailable RESULTS Component Value Reference Range Notes Basic Metabolic Panel Reviewed date:04/19/2024 05:23:07 PM Interpretation:Abnormal Performing Lab:[facility], [address] [place] [id number] Notes/Report: Sodium 141 135-145 mmol/L Potassium 4.3 [...] Location Date Provider Diagnosis Theron Sue DO, [address] [id number] 04/12/2024 Theron Sue Acute pulmonary embolism without acute cor pulmonale, unspecified pulmonary embolism type I26.99 ASSESSMENTS Encounter Date Diagnosis Assessment Notes Treatment Notes Treatment Clinical Notes 04/12/2024 Acute pulmonary embolism without acute cor pulmonale, unspecified pulmonary embolism type (ICD-10 - I26.99) PLAN OF TREATMENT No Information
--- OUTSIDE RECORDS SUMMARY | 2024-06-16 12:59 | XMS_ITS ---
Author Organization Theron Sue DO, FACP Address [address] [place] [phone] Care Team Providers Care Net Developer Contract Name Role Phone LinetteTheron Primary Care Provider [phone] MARIA DE JESUS GARAY Unavailable Unavailable ALLERGIES [...] Location Date Provider Diagnosis Theron Sue DO, [address] [id number] 04/12/2024 Theron Sue Acute pulmonary embo lism [...] General Examination GENERAL APPEARANCE: in no ac north fork distress, well developed, well nourished HEAD: normocephalic, atrau matic HEART: no murmurs, regular rate and rhythm, S1, S2 normal LUNGS: clear to auscultatio n bilaterally ABDOMEN: normal, bowel sounds present, soft, nontender, nondistended SKIN: warm and dry EXTREMITIES: no edema, negative H omans sign PSYCH: alert, oriented, cog nitive function intact
--- OUTSIDE RECORDS SUMMARY | 2024-06-16 13:00 | XMS_ITS | Patient Health Record ---
Author Organization [facility] Address [address] [place] [address] Care Team Providers Care Ham Curer Name Role Phone Theron Sue MD Primary Care Provider Unavail Keegan Dye Unavailable [phone] Allergies No Known Allergies Reason For Referral [...] Status Risk Notes Problem Acquired hallux valgus (93434175) Hallux valgus (acquired), left foot (M20.12) Active confirmed Problem Non-pressure chronic ulcer of other part of right foot with fat layer exposed (L97.512) Active confirmed Problem Chronic ulcer of foot (148462788) Non-pressure chronic ulcer of other part of left foot with fat layer exposed (L97.522) Active confirmed Problem Acquired hallux valgus (23810853) Hallux valgus (acquired), right foot (M20.11) Active confirmed Problem Non-pressure chronic ulcer of other part of left foot limited to breakdown of skin (L97.521) Active confirmed Problem Non-pressure chronic ulcer of other part of right foot limited to breakdown of skin (L97.511) Active confirmed Problem Acquired hammer toe of right foot (7696822245700 105) Other hammer toe(s) (acquired), right foot (M20.41) Active confirmed Problem Acquired hammer toe of left foot (8924450527334 103) Other hammer toe(s) (acquired), left foot (M20.42) Active confirmed Plan Of Treatment Pending Test Test Name Order Date 20806-MFEAIES SKIN/TISSUE 11/26/2021 Insurance Providers Payer Name Payer Address Payer Phone Subscriber Number Group Number Insured Name Patient Relationship to Insured Coverage Start Date Coverage End Date Medicare National [employer] [address] [place] [address] [id number] Maurice Ocasio Self - patient is the insured [employer] [facility] [address] [place] [address] [phone] [id number] Maurice Ocasio Self - patient is the insured Medical (General) History Medical History History ICD Code Headaches/Migraines Hiatal hernia Macular degeneration Reflux ( GERD) PVC Surgical History Surgery Date(Month/Year) hernia
--- OUTSIDE RECORDS SUMMARY | 2024-06-16 13:00 | XMS_ITS | Patient Health Record ---
Author Organization Theron Sue DO, FAC Address [address] [place] [id number] Care Team Providers Care Machine Wiper Name Role Phone Theron Sue Primary Care Provider [phone] RED THOMAS Unavailable Unavailable ALLERGIES No Known Allergies RESULTS Component Value Reference Range Notes Complete Blood Count Auto Di ff Reviewed date:08/26/2023 03:25:35 PM Interpretation:Normal Performing Lab:[facility], [address] [place] [id number] Notes/Report: White Blood Count 5.5 4.8-10.8 X10*3/uL [...] NRBC Abs Auto 0.000 0.0-0.012 X10*3/uL Comprehensive [place]. Panel Fa st Reviewed date:08/26/2023 03:25:35 PM Interpretation:Abnormal Performing Lab:[address] [address] Notes/Report: Sodium 141 135-145 mmol/L Potassium 4.1 3.3-5.1 mmol/L Chloride 106 96-108 mmol/L Carbon Dioxide 27 22-29 mmol/L Anion Gap 12 12-20 Blood Urea Nitrogen 21 9-16 mg/dL Creatinine 1.10 0.5-1.4 mg/dL Estimated Glomerular Filt Rate > 60 NOTE: For -Citizen Of [place] individuals, multiply the result by 1.210. Chronic [...] Panel Reviewed date:08/26/2023 03:25:51 PM Interpretation:Abnormal Performing Lab:[address] [address] Notes/Report: Triglycerides 82 <150 mg/dL Desirable Triglyceride: [...] Hormone Reviewed date:08/26/2023 03:25:35 PM Interpretation:Normal Performing Lab:[facility], [address] [place] [address] Notes/Report: Thyroid Stimulating Hormone 1.03 0.32-4.0 uIU/ mL TSH 3rd Generation ([facility]) Electrocardiogram (EKG) - IH Reviewed date:03/01/2024 04:49:01 PM Interpretation:NSR with occasional PVC Performing Lab: Notes/Report: NSR with occasional PVC Complete Blood Count Auto Di ff Reviewed date:03/03/2024 10:56:41 AM Interpretation:Abnormal Performing Lab:[facility], [address] [place] [address] Notes/Report: White Blood Count 5.5 4.8-10.8 X10*3/uL [...] ff Reviewed date:03/03/2024 09:59:55 AM Interpretation:Normal Performing Lab:[facility], [address] [place] [address] Notes/Report: White Blood Count 5.9 4.8-10.8 X10*3/uL [...] NRBC Abs Auto 0.000 0.0-0.012 X10*3/uL Comprehensive [place]. Panel Fa st Reviewed date:03/03/2024 10:56:41 AM Interpretation:Abnormal Performing Lab:[facility], [address] [place] [address] Notes/Report: Sodium 143 135-145 mmol/L Potassium 4.0 3.3-5.1 mmol/L Chloride 109 96-108 mmol/L Carbon Dioxide 29 22-29 mmol/L Anion Gap 9 12-20 Blood Urea Nitrogen 22 9-16 mg/dL Creatinine 1.07 0.5-1.4 mg/dL Estimated Glomerular Filt Rate > 60 NOTE: For -Citizen Of [place] individuals, multiply the result by 1.210. Chronic [...] Panel Reviewed date:03/03/2024 10:56:40 AM Interpretation:Normal Performing Lab:[facility], [address] [place] [phone] Notes/Report: Bilirubin Total 0.9 0.0-1.0 mg/dL Bilirubin Direct 0.3 0.0-0.5 mg/dL Aspartate Amino Transferase 17 5-37 U/L Alanine Aminotransferase 16 0-40 U/L Total Protein 7.2 6.5-8.0 g/dL Albumin Level 4.4 3.5-5.0 g/dL Alkaline Phosphatase 84 39-117 U/L Basic Metabolic Panel Reviewed date:03/03/2024 10:56:40 AM Interpretation:Abnormal Performing Lab:[facility], [address] [place] [phone] Notes/Report: Sodium 145 135-145 mmol/L Potassium 4.3 [...] Rate > 60 NOTE: For -Citizen Of [place] individuals, multiply the result by 1.210. Chronic Kidney Disease: Estimated GFR < 60 mL/min/1.73m2 Severe Kidney Disease: Estimated GFR < 15 mL/min/1.73m2 Glucose Random 89 60-115 mg/dL Calcium 9.7 8.4-10.2 mg/dL Troponin-I High Sensitivity Reviewed date:03/03/2024 10:56:41 AM Interpretation:Normal Performing Lab:[facility], [address] [place] [phone] Notes/Report: Troponin-I High Sensitivity < 2.7 <3.5-35.0 ng/ L [facility] high sensitivity Troponin-I results should be used in conjunction with other diagnostic information such as ECG, clinical observations and information, and patient symptoms to aid in the diagnosis of NE. Lipid Panel Reviewed date:03/03/2024 10:56:41 AM Interpretation:Abnormal Performing Lab:[facility], [address] [place] [phone] Notes/Report: Triglycerides 66 <150 mg/dL Desirable Triglyceride: [...] Lipase Reviewed date:03/03/2024 10:56:40 AM Interpretation:Normal Performing Lab:[facility], [address] [place] [address] Notes/Report: Lipase 35 8-78 U/L Thyroid Stimulating Hormone Reviewed date:03/03/2024 10:56:41 AM Interpretation:Normal Performing Lab:[facility], [address] [place] [phone] Notes/Report: Thyroid Stimulating Hormone 1.23 0.32-4.0 uIU/ mL TSH 3rd Generation ([facility]) SARS-CoV2/FLU/RSV Reviewed date:03/03/2024 01:11:05 PM Interpretation:Negative Performing Lab:[address] [address] Notes/Report: Influenza A PCR NEGATIVE Negative Influenza [...] by authorized laboratories. Testing performed on the [employer] GeneXpert utilizing real-time RT-PCR. All SARS CoV2 and positive influenza A/B results are reported to [facility] Dimer High Sensitivity Reviewed date:03/03/2024 12:11:37 PM Interpretation:Abnormal Performing Lab:[facility], [address] [place] [address] Notes/Report: D Dimer High Sensitivity 782 D-DIMER [...] date:03/03/2024 04:08:32 PM Interpretation:Positive Performing Lab: Notes/Report: [facility] [address] [place] [address] CT Scan Report Signed Patient: Maurice Riddle MR#: [id number] : 1945 Acct:[id number] Age/Sex: 79 / M ADM Date: 03/03/24 Loc: .ED Attending Dr: Ordering Physician: Shandra Feldman Date of Service: 03/03/24 Procedure(s): CT angio chest PE protocol Accession Number(s): [id number] cc: Shandra Feldman; Theron Sue DO EXAMINATION: [...] 03/03/24 1552 DD/ 1223 TD/TT: 03/03/24 1240 Master Police Detective: XR ribs RT min 3V w CXR1V Reviewed date:03/03/2024 04:03:30 PM Interpretation:Negative Performing Lab: Notes/Report: [address] [address] XRay Report Signed Patient: Maurice Riddle MR#: [id number] : 1945 Acct:[id number] Age/Sex: 79 / M ADM Date: 03/03/24 Loc: HO.ED Attending Dr: Ordering Physician: Red Thomas DO Date of Service: 03/03/24 Procedure(s): XR ribs RT min 3V w CXR1V Accession Number(s): [id number] cc: Theron Sue DO; Red Thomas DO [...] 03/03/24 1218 DD/ 0938 TD/TT: 03/03/24 1028 Master Police Detective: Troponin-I High Sensitivity Reviewed date:03/03/2024 01:11:27 PM Interpretation:Normal Performing Lab:[facility], [address] [place] [phone] Notes/Report: Troponin-I High Sensitivity < 2.7 <3.5-35.0 ng/ L [facility] high sensitivity Troponin-I results should be used in conjunction with other diagnostic information such as ECG, clinical observations and information, and patient symptoms to aid in the diagnosis of NE. US venous duplex UE BI Reviewed date:03/09/2024 03:07:54 PM Interpretation:Negative Performing Lab: Notes/Report: [address] [place] [address] Ultrasound Report Signed Patient: Maurice Riddle MR#: [id number] : 1945 Acct:[id number] Age/Sex: 79 / M ADM Date: 03/09/24 Loc: [facility] Att[place] Dr: Theron Sue DO Ordering Physician: Theron Sue DO Date of Service: 03/09/24 Procedure(s): US venous duplex UE BI Accession Number(s): [id number] cc: Theron Sue DO EXAMINATION: US TRIPLEX [...] 03/09/24 1424 DD/ 1317 TD/TT: 03/09/24 1347 Master Police Detective: US venous duplex LE BI Reviewed date:03/09/2024 03:06:59 PM Interpretation:Negative Performing Lab: Notes/Report: [address] [place] [address] Ultrasound Report Signed Patient: Maurice Riddle MR#: [id number] : 1945 Acct:[id number] Age/Sex: 79 / M ADM Date: 03/09/24 Loc: HO.HMGCX Attending Dr: Theron Sue DO Ordering Physician: Theron Sue DO Date of Service: 03/09/24 Procedure(s): US venous duplex LE BI Accession Number(s): [id number] cc: Theron Sue DO EXAMINATION: US TRIPLEX [...] 03/09/24 1424 DD/ 1350 TD/TT: 03/09/24 1405 Master Police Detective: XR chest 2V Reviewed date:05/30/2024 12:29:57 PM Interpretation:Normal Performing Lab: Notes/Report: [facility] [place] [address] XRay Report Signed Patient: Maurice Riddle MR#: [id number] : 1945 Acct:[id number] Age/Sex: 79 / M ADM Date: 04/03/24 Loc: HO.HMGCX Attending Dr: Fred Simmons MD Ordering Physician: Fred Simomns MD Date of Service: 04/03/24 Procedure(s): XR chest 2V Accession Number(s): [id number] cc: Theron Sue DO; Fred Simmons MD [...] 05/30/24 1113 DD/ 1443 TD/TT: 04/03/24 1446 Master Police Detective: NM pul perfusion Reviewed date:04/05/2024 11:16:34 AM Interpretation:Normal Performing Lab: Notes/Report: [address] [address] Nuclear Medicine Report Signed Patient: Maurice Riddle MR#: [id number] : 1945 Acct:[id number] Age/Sex: 79 / M ADM Date: 04/04/24 Loc: [facility] Attending Dr: Fred Simmons MD Ordering Physician: Fred Simmons MD Date of Service: 04/04/24 Procedure(s): NM pul perfusion Accession Number(s): [id number] cc: Theron Sue DO; Fred Simmons MD [...] and posterior, left and right lateral and MAORI, BURGER, LPO, and RPO projections using a [...] 04/05/24 0910 DD/ 1348 TD/TT: 04/04/24 1430 Master Police Detective: AJIT Basic Metabolic Panel Reviewed date:04/19/2024 05:23:07 PM Interpretation:Abnormal Performing Lab:[facility], [address] [place] [phone] Notes/Report: Sodium 141 135-145 mmol/L Potassium 4.3 [...] Problem Environmental allerg ies (Z91.09) Active confirmed 464432866 Problem Globus hystericus (F45.8) Active confirmed 12690985 Problem Gastroesophageal ref lux disease without esophagitis (K21.9) Active confirmed 574533562 Problem Benign non-nodular prostatic hyperplasia without lower urinary tract symptoms (N40.0) Active confirmed 975905717 Problem Hypercholesterolemia (E78.00) Active confirmed 11624792 Problem Bilateral low back pain, unspecified chronicity, with sciatica presence unspecified (M54.5) Active confirmed 015270305 Problem 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) Active confirmed 776920644 Problem Extrasystoles (I49.49) Active confirmed 43236324 Problem Gait abnormality (R26.9) Active confirmed 52219735 Problem Right inguinal pain (R10.31) Active confirmed 227088141 Problem Parkinsonism, unspecified Parkinsonism type (G20) Active confirmed 09943586 Problem Renal mass, right (N28.89) Active confirmed 626509180 Problem Bilateral low back p ain without sciatica, unspecified chronicity (M54.50) Active confirmed 086912245 Problem Parkinsonism, unspecified Parkinsonism type (G20.C) Active confirmed VITAL SIGNS Blood pressure diastolic 62 mm Hg 04/12/2024 Height 68.00 in 04/12/2024 Blood pressure systolic 100 mm Hg 04/12/2024 Weight 154 lbs 04/12/2024 BMI 23.41 kg/m2 04/12/2024 Encounters Encounter Location Date Provider Diagnosis Theron Sue DO [facility] [address], [place] [id number] 06/30/2023 Theron Sue DO, FACP [address], [place] [id number] 09/01/2023 Theron Sue Gastroesophageal ref lux disease without esophagitis K21.9 ; Parkinson's disease, unspecified whether dyskinesia present, unspecified whether manifestations fluctuate G20.A1 and Benign non-nodular prostatic hyperplasia without lower urinary tract symptoms N40.0 Theron Sue DO, [address] [id number] 10/06/2023 Theron Sue Gastroesophageal ref lux disease without esophagitis K21.9 ; Benign non-nodular prostatic hyperplasia without lower urinary tract symptoms N40.0 ; Bilateral low back pain without sciatica, unspecified chronicity M54.50 ; Parkinsonism, unspecified Parkinsonism type G20.C and Hypercholesterolemia E78.00 Theron Sue DO, [address] [id number] 03/01/2024 Theron Sue Parkinsonism, unspec ified Parkinsonism type G20.C ; Gastroesophageal reflux disease without esophagitis K21.9 ; Benign non-nodular prostatic hyperplasia without lower urinary tract symptoms N40.0 ; Bilateral low back pain without sciatica, unspecified chronicity M54.50 and Hypotension, unspecified hypotension type I95.9 Theron Sue DO, [address] [id number] 04/12/2024 Theron Sue Acute pulmonary embo lism without acute cor pulmonale, unspecified pulmonary embolism type I26.99 ; Gastroesophageal reflux disease without esophagitis K21.9 ; Parkinsonism, unspecified Parkinsonism type G20.C ; Benign non-nodular prostatic hyperplasia without lower urinary tract symptoms N40.0 and Bilateral low back pain without sciatica, unspecified chronicity M54.50 Theron Sue DO, [address] [id number] 03/08/2024 Theron Sue Acute pulmonary embo lism without acute cor pulmonale, unspecified pulmonary embolism type I26.99 ; Gastroesophageal reflux disease without esophagitis K21.9 ; Benign non-nodular prostatic hyperplasia without lower urinary tract symptoms N40.0 ; Parkinsonism, unspecified Parkinsonism type G20.C and Bilateral low back pain without sciatica, unspecified chronicity M54.50 Theron Sue DO, [address] [id number] 08/25/2023 Theron Sue Hypercholesterolemia E78.00 ; Extrasystoles I49.49 ; Gastroesophageal reflux disease without esophagitis K21.9 and Benign non-nodular prostatic hyperplasia without lower urinary tract symptoms N40.0 Theron Sue DO, [address] [id number] 12/24/2023 Theron Sue Theron Sue DO, [facility] [address], [place] [id number] 02/22/2024 Theron Sue Extrasystoles I49.49 and Hypercholesterolemia E78.00 Theron Sue DO, [facility] [address], [place] [id number] 03/03/2024 Theron Bennettman Theron Sue DO, [address] [id number] 03/14/2024 Theron Sue Theron Sue DO, [facility] [address], [place] [id number] 03/21/2024 Theron Linette Theron Sue DO, [address] [id number] 03/28/2024 Theron Sue Acute pulmonary embo lism without acute cor pulmonale, unspecified pulmonary embolism type I26.99 Theron Sue DO, [address] [id number] 04/12/2024 Theron Sue Acute pulmonary embo lism without acute cor pulmonale, unspecified pulmonary embolism type I26.99 Theron Sue DO, [facility] [address], [place] [id number] 04/21/2024 Theron Sue DO, [address] [id number] 02/16/2024 Theorn Sue Pilonidal cyst L05.9 1 ASSESSMENTS Encounter [...] Coverage End Date MEDICARE [address] [place] [address] [id number] Maurice Ocasio Self - patient is the insured [employer] [address] [place] [address] [phone] [id number] Maurice Ocasio Self - patient is the [...]
[2024-06-16 13:01] VITALS: BP 130/82; PULSE 73; O2SAT 96; BMI 25.2
--- NOTE | 2024-06-16 13:01 | A.OFFVIS_ITS ---
Vital Signs 06/16/24 13:01 Height 5 ft 7 in Weight 160 lb 14.999 oz BMI 25.2 BP 130/82 Blood Pressure Location Rt brachial Position Sitting Pulse 73 Pulse Source Pulse Oximeter Pulse Oximetry (%) 96 Oxygen Delivery Method Room Air Intake Visit Reasons: Pulmonary embolism Allergies No Known Allergies [No Known Allergies*] Allergy (Verified 06/16/24 13:10) HPI Comments Details: The patient is an 79-year-old gentleman with a diagnosis of pre Parkinson's with unsteady gait who presents with history of recent blood clots. Patient states that he was in his usual state health until recently we had a fall. He did not tell anybody. He did injure his right upper extremity. Subsequently after that he started feeling some night sweats and also some dizziness. He was evaluated at his primary care doctor's office where he was having low blood pressure of 80 systolic. Therefore, he was sent over to the ER there he was evaluated. He did have blood work done renal function was normal hemoglobin stable cardiac enzymes stable. Although his D-dimer was significantly elevated. Therefore, he did undergo CTA which I personally reviewed with him. Patient did have multiple subsegmental pulmonary emboli. It was also noted that he had some RV strain on the CT scan of the chest. No nodular densities. The patient did have a hemangioma that has been evaluated for in addition to that a cyst in the kidney appeared to be benign. The patient was evaluated in the ER he was given Eliquis as far as the loading dose and then he was discharged. He still feels the night sweats. He is tolerating the medicine has not noticed any minor major bleeding. The patient is not aware of any surgeries recently and is not aware of any from except for the fall hurting his right arm. Therefore, he was sent over for ultrasound Doppler of the upper and lower extremities demonstrating no evidence of any DVT. I talked to the family the patient regarding concerns about unprovoked pulmonary emboli and the possibility of an occult malignancy. The patient is having some constitutional symptoms with night sweats. Again, he was being evaluated for the hemangioma. Also has renal cyst. 06/16/2024 the patient is here for a pulmonary follow-up visit. Overall the patient has been doing well. He is tolerating the Eliquis 5 mg twice a day without any issues. Although it is expensive. Denies any minor major bleeding. He is having issues with his legs in have gotten a little weaker. He does use a cane good effect. Does not feel like he needs a walker. He understands that he has be careful not to fall specially on the blood thinners. The patient did have V/Q scan over the fall demonstrating no evidence of any chronic thromboembolic disease. No evidence of any residual clot. In addition to that he recently had a CT scan of the chest which I personally reviewed. He had contrast although his pulmonary vessels 1 completely opacified. Not too concerned about residual clots since his V/Q scan was normal. Still his parenchyma is good and no evidence of any nodular densities or any concerning findings. We did talk about continuing the Eliquis at the current dose to go further into next year specially since he is tolerating it. At that time since we dealing with an unprovoked clot we can decide for him to continue the current dose, decrease to the prophylactic dose which will be reasonable or stop the medication and monitor closely his D-dimer. Will discuss that further when he comes in. At this point since he is tolerating the medicine is doing well from a pulmonary standpoint and his echocardiogram is reassuring I will just continue with current plan. [facility] Medical History (Updated 06/18/24 @ 19:03 by Fred Simmons MD) Dyspnea Inguinal hernia Allergies Chronic GERD Social History (Updated 06/16/24 @ 13:11 by Lynn Coffey CMA) Patient Tobacco Use Status: Never used Tobacco Current occupational status: retired Current occupation: right handed Review of Systems Const Denies fever(s) Eyes Reports no additional complaints ENT Reports nasal congestion Card Denies chest pain and Reports dyspnea on exertion Resp Denies pain on inspiration, Denies pain with cough, Reports dyspnea on exertion and Denies wheezing GI Reports no additional complaints Musc Reports abnormal gait, Reports myalgias and Reports limited range of motion Skin/Breast Denies rash Neuro Reports abnormal gait Endo Reports no additional complaints Neftali/Lymph Reports no additional complaints Aller/Immun Denies wheezing Physical Exam Vital Signs: Last Vital Signs Pulse 73 06/16/24 13:01 BP 130/82 06/16/24 13:01 Pulse Ox 96 06/16/24 13:01 Oxygen Delivery Method Room Air 06/16/24 13:01 BMI result Body Mass Index 25.2 Const General: comfortable HEENT Head: Yes normocephalic Neck Neck: Yes supple Chest Chest palpation & inspection: normal inspection of the chest Resp Effort & Inspection: normal respiratory effort Auscultation: diminished lung sounds Cardio Heart sounds: S1 normal heart sound present and S2 normal heart sound present GI Palpation (GI): Soft to palpation Skin General skin exam: no rashes or lesions noted Extrem General: Yes no clubbing, cyanosis or edema Assessment & Plan Assessment & Plan (1) Pulmonary embolism: Code(s): I26.99 - Other pulmonary embolism without acute cor pulmonale Category: Medical Qualifiers: Pulmonary embolism type: multiple subsegmental (without acute cor pulmonale) Qualified Code(s): I26.94 - Multiple subsegmental thrombotic pulmonary emboli without acute cor pulmonale (2) Dyspnea: Code(s): R06.00 - Dyspnea, unspecified Category: Medical Qualifiers: Dyspnea type: dyspnea on exertion Qualified Code(s): R06.09 - Other forms of dyspnea Plan Experienced a unprovoked PE. Althouugh, he did have a RUE injury, but no clear findings of DVT. Therefore, need to make sure to assess for occult malignancies. REC: continue Eliquis 5mg BID, conisder stopping after a year or decreasing to prophylactic dose. We will discuss further during his F/U use can, consider walker if increase risk of falls F/U 6-8 months Coding Level of Care Code Est Pt Level 4 (09387) Diagnoses Multiple subsegmental pulmonary emboli without acute cor pulmonale I26.94 Pulmonary embolism type: multiple subsegmental (without acute cor pul monale) Dyspnea on exertion R06.09 Dyspnea type: dyspnea on exertion Time Spent (min) 17
== END 2024-06-16 13:33 | disposition home or self-care (01) ==
PROVIDERS: PCP Internal Medicine; Visit Provider Hospitalist
DX: I26.94 Multiple subsegmental thrombotic pulmonary emboli without acute cor pulmonale (principal); R06.09 Other forms of dyspnea
CPT/HCPCS: 99214

== ENCOUNTER → 2024-06-16 12:57 | Outpatient (BNVA) | payer MEDICARE, SELFPAY | PROVIDERS: PCP Internal Medicine; Visit Provider Hospitalist | DX: I26.94 Multiple subsegmental thrombotic pulmonary emboli without acute cor pulmonale (principal); R06.09 Other forms of dyspnea | CPT/HCPCS: 99212 ==

== ENCOUNTER 2024-08-30 11:26 | Outpatient (AMB) | payer MEDICARE, SELFPAY ==
--- NOTE | 2024-08-30 11:51 | MHC.PC.OV ---
Vital Signs 08/30/24 11:56 Height 5 ft 5 in Weight 163 lb BMI 27.1 BP 124/82 Blood Pressure Location Rt brachial Pulse 82 Pulse Source Pulse Oximeter Temp 97.4 F Pulse Oximetry (%) 96 Intake Visit Reasons: 6 month follow up Intake Note: problem with legs and walking, back pain patient has spinal stenosis would like physical therapy Allergies No Known Allergies [No Known Allergies*] Allergy (Verified 08/30/24 12:10) Medication List - Last Reconciled 08/30/24 by Valeria Hope PA-C apixaban (Eliquis DVT-PE Treat 30D Start) 5 mg PO BID apixaban (Eliquis) 5 mg PO BID 90 days carbidopa-levodopa 25-100 mg 1.5 tabs PO TID 90 days finasteride 5 mg PO DAILY 90 days omeprazole 20 mg PO DAILY PFSH Medical History (Updated 08/30/24 @ 13:21 by Valeria Hope PA-C) Overweight (BMI 25.0-29.9) Pulmonary embolism Joint stiffness Varicella zoster BPH (benign prostatic hyperplasia) Diverticulosis Vitamin B12 deficiency Tubular adenoma Basal cell carcinoma (BCC) in situ of skin Mild hypercholesterolemia GERD (gastroesophageal reflux disease) Chest tightness Gait abnormality Parkinsonism Dyspnea Inguinal hernia Allergies Chronic GERD Social History Patient Tobacco Use Status: Never used Tobacco Current occupational status: retired Current occupation: right handed Questionnaire PHQ-9 Over the last 2 weeks, how often have you been bothered by any of the following problems? 1. Little interest or pleasure in doing things: not at all 2. Feeling down, depressed, or hopeless: not at all 3. Trouble falling or staying asleep, or sleeping too much: not at all 4. Feeling tired or having little energy: not at all 5. Poor appetite or overeating: not at all 6. Feeling bad about yourself - or that you are a failure or have let yourself or your family down: not at all 7. Trouble concentrating on things, such as reading the newspaper or watching television: not at all 8. Moving or speaking so slowly that other people could have noticed. Or the opposite - being so fidgety or restless that you have been moving around a lot more than usual: not at all 9. Thoughts that you would be better off or of hurting yourself in some way: not at all Total score: 0 Depression Screening Interpretation: Negative Depression Screening Done: Yes 84356 - PHQ-9 Billing: Yes Source: Developed by Drs. Theron Greene, Chula Gutierrez, John Hawk and colleagues, with an educational carmine from [employer]. Thrive Questionnaire I am a: Patient What is your living situation today?: I have a steady place to live Within the past 12 months, did the food you bought not last and you didn't have the money to get more?: Never true Within the past 12 months, did you worry whether your food would run out before you got money to buy more?: Never true Do you have trouble paying for medicines?: No Do you have trouble getting transportation to medical appointments?: No Do you have trouble paying your heating and electricity bill?: No Do you have trouble taking care of your child, family member or friend?: No Do you have trouble with day-to-day activities such as bathing, preparing meals, shopping, managing finances, etc.?: No Are you currently unemployed and looking for a job?: No Are you interested in more education?: Yes THRIVE Score: 0 AUDIT C Alcohol Use Questionnaire (AUDIT-C) 1. How often do you have a drink containing alcohol?: Monthly or less 2. How many drinks containing alcohol do you have on a typical day when you are drinking?: 1 or 2 3. How often do you have six or more drinks on one occasion?: Never Total Score: 1 Score Reviewed/Action Taken: No KATY-7 AMB Questionnaire KATY-7 Feeling nervous, anxious, or on edge: 0 = Not at all Not being able to stop or control worryin = Not at all Worrying too much about different things: 0 = Not at all Trouble relaxin = Not at all Being so restless that it is hard to sit still: 0 = Not at all Becoming easily annoyed or irritable: 0 = Not at all Feeling afraid as if something awful might happen: 0 = Not at all Total KATY-7 score (0-4 normal; 5-9 mild; 10-14 moderate; 15-21 severe): 0 Source: Developed by Chula Torres.W. Matt, John Hawk and colleagues, with an educational carmine from [employer]. KATY-7 Assessment Billing KATY-7 Assessment Tool: KATY-7 Assessment 89929 Physical exam (Primary Care) Vital Signs: Last Vital Signs Temp 97.4 F 08/30/24 11:56 Pulse 82 08/30/24 11:56 BP 124/82 08/30/24 11:56 Pulse Ox 96 08/30/24 11:56 Care Plan Goal for BP management: <130/80 at goal BMI result Body Mass Index 27.1 BMI Assessment/Plan discussion: High BMI High, discussed plan: lifestyle, weight reduction, dietary, physical activity and alcohol moderation Tobacco/Smoking Status: Tobacco use Status Patient Tobacco Use Status Never used Tobacco 08/30/24 11:57 PHQ-9: PHQ-9 Score PHQ-9: Total score 0 08/30/24 12:07 Depression Screening Interpretation: Negative Coding Level of Care Code New Pt Level 4 (65188) Complex EM visit Add On G2211 Diagnoses Gait abnormality R26.9 Parkinsonism G20.C Multiple subsegmental pulmonary emboli without acute cor pulmonale I26.94 Pulmonary embolism type: multiple subsegmental (without acute cor pulmonale) Chest tightness R07.89 Basal cell carcinoma (BCC) in situ of skin D04.9 Mild hypercholesterolemia E78.00 GERD (gastroesophageal reflux disease) K21.9 BPH (benign prostatic hyperplasia) N40.0 Joint stiffness M25.60 Overweight (BMI 25.0-29.9) E66.3 Additional Codes PHQ-9 - 24555 - PHQ-9 Billing: Yes ([id number]) KATY-7 Assessment Billing - KATY-7 Assessment Tool: KATY-7 Assessment 23911 ([id number]) Assessment & Plan Assessment & Plan (1) Gait abnormality: Code(s): R26.9 - Unspecified abnormalities of gait and mobility Category: Medical Plan: Patient to continue carbidopa-levodopa 25-100 mg 1.5 tablets p.o. t.i.d.. Patient to continue being followed by Neurology. Will refer to Physical therapy and Occupational therapy for further evaluation management. Condition is chronic and stable continue to monitor. (2) Parkinsonism: Code(s): G20.C - Parkinsonism, unspecified Category: Medical Plan: Patient to continue carbidopa-levodopa 25-100 mg 1.5 tablets p.o. t.i.d.. Patient to continue being followed by Neurology. Will refer to Physical therapy and Occupational therapy for further evaluation management. Condition is chronic and stable continue to monitor. (3) Pulmonary embolism: Comment: Currently on Eliquis Code(s): I26.99 - Other pulmonary embolism without acute cor pulmonale Category: Medical Qualifiers: Pulmonary embolism type: multiple subsegmental (without acute cor pulmonale) Qualified Code(s): I26.94 - Multiple subsegmental thrombotic pulmonary emboli without acute cor pulmonale Plan: Patient currently on Eliquis 5 mg p.o. b.i.d.. Denies any shortness of breath, dyspnea on exertion, orthopnea or leg swelling or calf tenderness. Condition is chronic and stable continue to monitor. (4) Chest tightness: Code(s): R07.89 - Other chest pain Category: Medical Plan: Patient reports intermittent chest tightness does not have it at this time. Can not recall what brings on this chest tightness. believes it may be related to anxiety due to his gait abnormality and concern for falls. Although will obtain basic outpatient labs, EKG and chest x-ray to evaluate for any other acute processes. Patient is instructed to go to the emergency department if he develops any chest pain or persistent chest pain that does not go away. He understands this. Will continue to monitor. (5) Basal cell carcinoma (BCC) in situ of skin: Code(s): D04.9 - Carcinoma in situ of skin, unspecified Category: Medical Plan: Patient is status post basal cell carcinoma of nose resected. He had this removed last at [facility]. Condition is chronic and stable continue to monitor. (6) Mild hypercholesterolemia: Code(s): E78.00 - Pure hypercholesterolemia, unspecified Category: Medical Plan: Condition is managed by diet controlled. Will continue to monitor. (7) GERD (gastroesophageal reflux disease): Code(s): K21.9 - Gastro-esophageal reflux disease without esophagitis Category: Medical Plan: Patient currently on omeprazole 20 mg daily. Condition is chronic and stable continue to monitor. (8) BPH (benign prostatic hyperplasia): Code(s): N40.0 - Benign prostatic hyperplasia without lower urinary tract symptoms Category: Medical Plan: Patient to continue finasteride 5 mg daily. Condition is chronic and stable continue to monitor. (9) Joint stiffness: Code(s): M25.60 - Stiffness of unspecified joint, not elsewhere classified Category: Medical Plan: Patient to continue Celebrex as previously prescribed. Will add Flexeril 10 mg every 8 hours as needed. Will refer to Physical therapy and Occupational therapy for further evaluation management. Condition is chronic and stable continue to monitor. (10) Overweight (BMI 25.0-29.9): Code(s): E66.3 - Overweight Category: Medical Plan: Patient to improve his diet and exercise regimen. Condition is chronic and stable continue to monitor. Plan Plan Patient was informed and verbally consented to the use of an ambient scribe for clinic note documentation during this visit. 1. History Of Pulmonary Embolism Continuous anticoagulation management with Eliquis, regular monitoring, and evaluation to maintain therapeutic levels and prevent thromboembolic events. 2. Gait Abnormality Evaluation through physical and occupational therapy to aid functional mobility and balance, ongoing monitoring of progress, and arranging EKG and chest X-ray for potential cardiac evaluation. 3. Joint Stiffness Secondary To Spinal Stenosis Physical therapy to target joint mobility and strength, introduction of a muscle relaxant (Flexeril), continued use of cane, and encouraging routine exercises to improve condition. Discussion Notes During the visit, we discussed the patient's primary issues of joint stiffness and gait abnormality, emphasizing physical therapies designed to strengthen and optimize mobility. I explained the potential benefits of including Flexeril over Celebrex for easing muscular discomfort and how targeted therapy modalities, such as balance exercises, can enhance daily function and reduce the risk of falls. I recommended physical and occupational therapy referrals with emphasis on comprehensive evaluations to guide treatment plans. Regular follow-up and physiologic parameters will be evaluated, especially considering previous pulmonary embolism history. Cardiac assessments including EKG and chest X-ray were arranged to preclude secondary systemic concerns. All discussions were well-integrated into patient guides for safe activity persistence. Orders: Orders C Reactive Protein Today Z00.00 - Encounter for general adult medical examination without abnormal findings Comprehensive [place]. Panel Fast Today Z00.00 - Encounter for general adult medical examination without abnormal findings Erythrocyte Sedimentation Rate Today Z00.00 - Encounter for general adult medical examination without abnormal findings Liver Panel Today Z00.00 - Encounter for general adult medical examination without abnormal findings Magnesium Today Z00.00 - Encounter for general adult medical examination without abnormal findings Vitamin D 25-OH Total Today Z00.00 - Encounter for general adult medical examination without abnormal findings Vitamin B12 and Folate Today Z00.00 - Encounter for general adult medical examination without abnormal findings TSH reflex Free T4 Today Z00.00 - Encounter for general adult medical examination without abnormal findings Zinc Today Z00.00 - Encounter for general adult medical examination without abnormal findings Lipid Panel Today Z00.00 - Encounter for general adult medical examination without abnormal findings OT Evaluation and Treatment Today G20.C - Parkinsonism, unspecified, R26.9 - Unspecified abnormalities of gait and mobility ECG 12 lead EKG Today R07.89 - Other chest pain XR chest 2V Today R07.89 - Other chest pain Complete Blood Count Auto Diff Today Z00.00 - Encounter for general adult medical examination without abnormal findings Hemoglobin A1c Today Z00.00 - Encounter for general adult medical examination without abnormal findings Vitamin B1 Today Z00.00 - Encounter for general adult medical examination without abnormal findings Vitamin A Today Z00.00 - Encounter for general adult medical examination without abnormal findings PSA,Total (Free>4and<10) Today Z00.00 - Encounter for general adult medical examination without abnormal findings PT Evaluation and Treatment Today G20.C - Parkinsonism, unspecified, R26.9 - Unspecified abnormalities of gait and mobility Medications: New cyclobenzaprine 10 mg PO Q8H 30 tabs 1RF celecoxib 200 mg PO DAILY Patient Instructions: Patient Instructions - Attend scheduled physical and occupational therapy sessions for gait and balance improvement. - Use Flexeril as prescribed to alleviate muscle stiffness, particularly in the afternoon/evening. - Continue utilizing a cane, with focus on exercise routines, including yoga and cycling. - Ensure all blood work, including CBC and CMP, is completed fasting; schedule accordingly. - Monitor any new symptoms, particularly chest discomfort, and report them promptly. - Use installed support bars for safe movement within the home. - Expect to be contacted for therapy appointments, and ensure follow-up for test results as advised. Scribe Plan - Not visible on output: History of Present Illness The patient is an 79-year-old male presenting with joint stiffness, gait abnormality, and spinal stenosis. The dee issue, spinal stenosis, has been causing significant gait difficulty and stiffness, leading to mobility impediments and fear of falling during routine activities. The patient's description of this condition includes episodes where he feels as though his movements freeze, particularly when facing obstacles, increasing his fall risk despite using a cane for support. The absence of an official Parkinson's Disease diagnosis remains, though Parkinsonism-like symptoms are noted by his partner, who assists in patient care. Previous significant medical history includes GERD, hyperlipidemia managed pharmacologically, benign prostatic hyperplasia treated with finasteride, and a pulmonary embolism necessitating ongoing anticoagulation therapy. No recurrences of basal cell carcinoma are noted post-surgery. Additionally, the patient has a documented history of colorectal polyps and hemorrhoids, neither currently symptomatic. There is a persistent vitamin B12 deficiency, managed with routine supplementation, supported by awareness of its potential neurological implications. Overlying these is a noted history of anxiety, potentially contributing to episodes of chest tightness. Social History - The patient's partner acts as a primary caregiver, assisting with daily living activities. - The patient uses a cane for mobility due to reduced balance and fear of falling. - Engages in cycling and yoga exercises regularly, as encouraged by the partner. - Food preparation and household maintenance are managed by the partner. Review of Systems - Musculoskeletal: Reports joint stiffness, particularly large joints, associated with spinal stenosis. - Neurologic: Reports gait abnormality with episodes of freezing upon encountering obstacles. - Cardiovascular: Reports occasional chest tightness with minor pinpoint sensations. - Musculoskeletal: Denies recent falls, though holds a significant fear of falling. Physical Exam Appearance: Alert. Oriented X3. No acute distress. Head: Normal external exam. Normocephalic. Atraumatic. Eyes: Pupils are equal, round, and reactive to light. Extraocular movements intact. Conjunctiva and sclera normal. Eyelids normal. Ears: External auditory canal normal. Tympanic membranes normal. Throat: Pharynx normal. Uvula midline. Moist mucous membranes. Neck: Normal inspection. Neck supple. Full range of motion. No adenopathy. Thyroid Normal. No meningeal signs. No neck mass noted. Cardiovascular: Normal heart rate and rhythm. Heart sound normal. Heart murmur noted. No murmurs noted. Pulses normal throughout. Respiratory: No respiratory distress. Painless inspiration. Breath sounds normal. No wheezes/rales/rhonchi noted. Chest nontender. No accessory muscle usage noted or decreased air movement noted. Abdomen: Soft and nontender. Bowel sounds normal in all 4 quadrants. No distention noted. No organomegaly noted. No visible injury noted. Back: No costovertebral angle tenderness. Full range of motion noted. Skin: Skin warm and dry. Normal skin color. Normal skin turgor. No rashes/lesions/lacerations noted. Extremities: No lower extremity edema. Extremities exhibit normal range of motion. Extremities nontender. Neuro: Oriented X 3. No motor deficit. No sensory deficit. Reflexes normal. Gait abnormality noted.
[2024-08-30 11:56] VITALS: BP 124/82; PULSE 82; TEMP 36.3; O2SAT 96; BMI 27.1
--- OUTSIDE RECORDS SUMMARY | 2024-08-30 13:52 | XMS_ITS | Patient Health Record ---
Author Organization [facility] Address [address] [place] [address] Care Team Providers Care Bench Technician Name Role Phone Theron Sue MD Primary Care Provider Unavail Keegan Dye Unavailable [phone] Allergies No Known Allergies Reason For Referral [...] Status Risk Notes Problem Acquired hallux valgus (62124561) Hallux valgus (acquired), left foot (M20.12) Active confirmed Problem Non-pressure chronic ulcer of other part of right foot with fat layer exposed (L97.512) Active confirmed Problem Chronic ulcer of foot (348287417) Non-pressure chronic ulcer of other part of left foot with fat layer exposed (L97.522) Active confirmed Problem Acquired hallux valgus (44255172) Hallux valgus (acquired), right foot (M20.11) Active confirmed Problem Non-pressure chronic ulcer of other part of left foot limited to breakdown of skin (L97.521) Active confirmed Problem Non-pressure chronic ulcer of other part of right foot limited to breakdown of skin (L97.511) Active confirmed Problem Acquired hammer toe of right foot ([id number] 105) Other hammer toe(s) (acquired), right foot (M20.41) Active confirmed Problem Acquired hammer toe of left foot (2951801429927 103) Other hammer toe(s) (acquired), left foot (M20.42) Active confirmed Plan Of Treatment Pending Test Test Name Order Date [id number] SKIN/TISSUE 11/26/2021 Insurance Providers Payer Name Payer Address Payer Phone Subscriber Number Group Number Insured Name Patient Relationship to Insured Coverage Start Date Coverage End Date [employer] [address] [facility] [place] [address] [id number] Maurice Ocasio Self - patient is the [facility] [address] [place] [address] [id number] Maurice Ocasio Self - patient is the insured Medical (General) History Medical History History ICD Code Headaches/Migraines Hiatal hernia Macular degeneration Reflux ( GERD) PVC Surgical History Surgery Date(Month/Year) hernia
== END 2024-08-30 12:30 | disposition home or self-care (01) ==
LOC: HO.HMCSH 11:26
PROVIDERS: PCP Internal Medicine; Visit Provider Physician Assistant Medical
DX: R26.9 Unspecified abnormalities of gait and mobility (principal); G20.C Parkinsonism, unspecified; I26.94 Multiple subsegmental thrombotic pulmonary emboli without acute cor pulmonale; R07.89 Other chest pain; D04.9 Carcinoma in situ of skin, unspecified; E78.00 Pure hypercholesterolemia, unspecified; K21.9 Gastro-esophageal reflux disease without esophagitis; N40.0 Benign prostatic hyperplasia without lower urinary tract symptoms; M25.60 Stiffness of unspecified joint, not elsewhere classified; E66.3 Overweight

== ENCOUNTER → 2024-08-30 11:26 | Outpatient (BNVA) | payer MEDICARE, SELFPAY | PROVIDERS: PCP Internal Medicine; Visit Provider Physician Assistant Medical | DX: R26.9 Unspecified abnormalities of gait and mobility (principal); G20.C Parkinsonism, unspecified; I26.94 Multiple subsegmental thrombotic pulmonary emboli without acute cor pulmonale; R07.89 Other chest pain; D04.9 Carcinoma in situ of skin, unspecified; E78.00 Pure hypercholesterolemia, unspecified; K21.9 Gastro-esophageal reflux disease without esophagitis; N40.0 Benign prostatic hyperplasia without lower urinary tract symptoms; M25.60 Stiffness of unspecified joint, not elsewhere classified; E66.3 Overweight; Z68.27 Body mass index [BMI] 27.0-27.9, adult; Z71.3 Dietary counseling and surveillance | CPT/HCPCS: 96127; 99202 ==

== ENCOUNTER 2024-11-15 09:57 | Outpatient (REF) | payer MEDICARE, SELFPAY ==
--- NOTE | ~2024-11-15 | XR_ITS ---
EXAMINATION: XR CHEST 2 VIEWS HISTORY: R07.89 - Other chest pain COMPARISON: Comparison is made with the prior examination dated 03/26/2024. FINDINGS: PA and lateral views of the chest are submitted. The lungs are expanded and clear. There is no pleural effusion, pneumothorax, or pulmonary vascular congestion. The heart is normal in size. The bones are intact. XR/XR chest 2V IMPRESSION: No acute cardiopulmonary abnormality. Electronically signed by: Theron Willingham MD 11/15/2024 01:40 PM EDT
[2024-11-15 13:20] LABS: MANUAL DIFF FLAG NO
[2024-11-15 13:23] LABS: Basophils Percent Auto 0.6 % (0-2); Eosinophils Absolute Auto 0.1 X10*3/uL (0.0-0.4); Eosinophils Percent Auto 2.6 % (0-4); Hematocrit 41.8 % (42.0-52.0); Hemoglobin 13.8 g/dl (14.0-18.0); Imm Gran Abs Auto 0.02 X10*3/uL (0.00-0.03); Imm Gran Pct Auto 0.4 % (0.0-0.4); Lymphocytes Absolute Auto 1.3 X10*3/uL (1.2-4.9); Lymphocytes Percent Auto 26.2 % (20-40); Mean Corpuscular Hemoglobin 30.2 pg (27.0-33.0); Mean Corpuscular Volume 91.5 fL (80.0-98.0); Mean Platelet Volume 9.9 fL (9.4-12.4); Monocytes Absolute Auto 0.3 X10*3/uL (0.1-1.2); Monocytes Percent Auto 5.9 % (2-11); Neutrophils Absolute Auto 3.3 x10*3/uL (2.0-8.3); Neutrophils Percent Auto 64.3 % (45-73); Platelet Count 221 X10*3/uL (160-400); Red Blood Count 4.57 X10*6/uL (4.60-5.80); Red Cell Distribution Width 13.1 % (11.0-16.0); White Blood Count 5.1 X10*3/uL (4.8-10.8)
[2024-11-15 13:35] LABS: Estimated Average Glucose 114 mg/dL; Hemoglobin A1c % 5.6 % (<6.0); Total Hemoglobin (HGBA1C) 3683.9028 umol/L
[2024-11-15 13:42] LABS: Alanine Aminotransferase 26 U/L (0-40); Albumin Level 4.4 g/dL (3.5-5.0); Alkaline Phosphatase 70 U/L (39-117); Anion Gap 9 (12-20); Aspartate Amino Transferase 26 U/L (5-37); Bilirubin Direct 0.3 mg/dL (0.0-0.5); Bilirubin Total 0.9 mg/dL (0.0-1.0); Blood Urea Nitrogen 20 mg/dL (9-16); Calcium 9.3 mg/dL (8.4-10.2); Carbon Dioxide 29 mmol/L (22-29); Chloride 107 mmol/L (96-108); Cholesterol 212 mg/dL (<200); Estimated Glomerular Filt Rate > 60; Glucose Fasting 94 mg/dL (60-99); HDL Cholesterol 62 mg/dL (>40); LDL Cholesterol Calculated 138 mg/dL (<100); Magnesium 2.1 mg/dL (1.6-2.6); Potassium 4.2 mmol/L (3.3-5.1); Sodium 141 mmol/L (135-145); Total Protein 6.7 g/dL (6.5-8.0); Triglycerides 62 mg/dL (<150)
[2024-11-15 14:02] LABS: Erythrocyte Sedimentation Rate 2 MM/HR (0-15)
[2024-11-15 14:34] LABS: Vitamin D 25-OH Total 67.6 ng/mL (>30)
[2024-11-15 14:35] LABS: PSA,Total (Free>4and<10) 1.79 ng/mL (0.00-4.00)
[2024-11-15 14:45] LABS: Folate 7.3 ng/mL (> or = 4.0); Vitamin B12 293 pg/mL (200-900)
[2024-11-18 13:53] LABS: Zinc 71 mcg/dL (60-130)
[2024-11-19 16:38] LABS: Vitamin A 50 mcg/dL (38-98)
[2024-11-20 16:09] LABS: Vitamin B1 9 nmol/L (8-30)
== END 2024-11-15 09:58 | disposition home or self-care (01) ==
LOC: HO.HMGCX 09:57
PROVIDERS: Visit Provider Physician Assistant Medical
DX: Z00.00 Encounter for general adult medical examination without abnormal findings (principal); R07.89 Other chest pain
CPT/HCPCS: 36415; 71046; 80053; 80061; 80076; 82248; 82306; 82607; 82746; 83036; 83735; 84153; 84425; 84443; 84590; 84630; 85025; 85652; 86140

== ENCOUNTER → 2024-11-15 10:21 | Outpatient (BNV) | payer MEDICARE, SELFPAY | PROVIDERS: Visit Provider Radiology Diagnostic Radiology | DX: R07.89 Other chest pain (principal) | CPT/HCPCS: 71046 ==

== ENCOUNTER 2024-11-22 13:00 | Outpatient (RCR) | payer MEDICARE, SELFPAY ==
--- NOTE | 2024-09-14 13:24 | MHC.PT.EP ---
[facility] [place] Office [place] Office [place] Office [address] [phone] F: [phone] F: [phone] F: [phone] F: [phone] Physical Therapy Plan of Care Date of Evaluation: 09/14/24 Date of Surgery: Diagnosis: unspecified abnormalities of gait and mobility Assessment: Patient is an 79 year old R handed male who presents with s/s consistent with unspecified abnormalities of gait and mobility, back pain. He does not work and is fairly sedentary. Patient past medical history includes Parkinson's and severe low back pathology. Current impairments include pain, posture, ROM, flexibility, strength, activity tolerance and functional mobility. 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 Patient is motivated with good rehab potential. Skilled PT will address impairments and functional limitations in order to achieve goals. Frequency and Duration: The patient will be seen 2x/week for 5 weeks Short Term Goals: I with HEP - 2 weeks 90/90 lacking 30 or less - 3 weeks Gastroc tightness min - 3 weeks Alf Goals: SLB > 5 seconds - 5 weeks DGI 05/30 - 5 weeks LE strength 4/5 grossly - 5 weeks b/l knee ext full - 5 weeks Treatment Plan: Modalities to reduce pain, spasms and effusion. Manual therapy to restore motion and function. Therapeutic exercise to improve strength and flexibility. Neuromuscular re-education for posture and balance. Therapeutic activities to return to functional activities of daily living. Electronically signed by: Sukhi Arce, PT Please sign and return to therapist. Thank you for your referral.
--- NOTE | 2024-12-15 07:10 | MHC.PT.DC ---
[facility] [place] Office [place] Office [place] Office [address] Mundo Conteh [address] [phone] F: [phone] F: [phone] F: [phone] F: [phone] Physical Therapy Discharge Report Diagnosis: unspecified abnormalities of gait and mobility Date of Surgery: Date of Evaluation: 09/14/24 Date of Discharge: Treatments to Date: 15 Cancellations to Date: No Shows to Date: Discharge Status: Improved Function Independent with HEP Discharge Summary: 11/22/24: pt progressed modestly in skilled PT. improved flexibility and ROM. DGI to 11. he still is a significant fall risk. he has an updated HEP and has been educated thoroughly on keeping his cane with him and not forgetting it. 11/10/24: pt notes he has been compliant with HEP. we will have 1 more appt in 1.5 weeks to effectively taper to HEP. 11/08/24: pt has been motivated throughout and happy with progress. we will likely taper to hep at this time. 11/02/24: pt with low energy today, held on progression again. good safety awareness but does tend to lose sight of obstacles at his feet. 10/31/24: we held on progression due to recent fall. no new s/s are evident. no bruising observed. we will progress NV. 10/25/24: pt fatigued at end of treatment today. we will attempt resistance progression next visit. 10/20/24: pt has been feeling fatigued after PT but with increased energy in between. continue to progress as tolerated. 10/18/24: pt encouraged to bring his own cane. we did progress resistance with loaded walking. no adverse reactions. just increased time. 10/12; Pt improved a little with sc amb, but could use a review NV. 10/10; Pt needed SBA with transfers. Pt needed repeated instruction to perform exs properly. 10/05/24: shaky on his feet today in the clinic. I issued him a cane for clinic use and encouraged him to bring his own for ambulation in the clinic and for any relevant therex and balance/gait training. 10/03/24: pt fatigued after treatment. requires modA and cues repeated for new ex. often needs cues for repeat therex as well. 09/27/24: pt fatigued after yesterdays treatment. held on some neuro- re-ed. we will continue to progress loaded walking. 09/26/24: pt compliant with HEP. progressed balance today. no adverse reactions. continue to progress as tolerated. 09/21/24: pt tolerated strength, stretching, functional training well. HEP issued. pt expressed intended compliance. Patient is an 79 year old R handed male who presents with s/s consistent with unspecified abnormalities of gait and mobility, back pain. He does not work and is fairly sedentary. Patient past medical history includes Parkinson's and severe low back pathology. Current impairments include pain, posture, ROM, flexibility, strength, activity tolerance and functional mobility. 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 Patient is motivated with good rehab potential. Skilled PT will address impairments and functional limitations in order to achieve goals. Electronically signed by: Sukhi Arce, PT Please sign and return to therapist. Thank you for your referral.
== END 2024-12-15 07:10 | disposition home or self-care (01) ==
LOC: HO.PTCHIC 13:00
PROVIDERS: PCP Physician Assistant Medical; Visit Provider Physician Assistant Medical
DX: R26.9 Unspecified abnormalities of gait and mobility (principal); G20.C Parkinsonism, unspecified
CPT/HCPCS: 97110; 97112; 97163

== ENCOUNTER 2024-12-05 10:33 | Outpatient (AMB) | payer MEDICARE, SELFPAY ==
--- NOTE | 2024-12-05 11:06 | A.OFFPC_ITS ---
Vital Signs 12/05/24 11:14 Height 5 ft 5.5 in Weight 156 lb 0.4 oz BMI 25.6 BP 122/76 Blood Pressure Location Lt brachial Pulse 82 Pulse Source Pulse Oximeter Temp 97.5 F Pulse Oximetry (%) 96 Intake Visit Reasons: follow up Intake Note: having a problem with lower when he has pain he can't get around, also having a problem with constipation. Allergies No Known Allergies (No Known Allergies*) Allergy (Verified 12/05/24 11:25) Medication List - Last Reconciled 12/05/24 by Valeria Hope PA-C apixaban (Eliquis) 5 mg PO BID 90 days carbidopa-levodopa 25-100 mg 1.5 tabs PO TID 90 days celecoxib 200 mg PO DAILY cholecalciferol (vitamin D3) 25 mcg PO DAILY cyclobenzaprine 10 mg PO Q8H ferrous sulfate 325 mg PO DAILY finasteride 5 mg PO DAILY omeprazole 40 mg PO BID 90 days Tobacco use date assessed: 12/05/24 Fall risk assessment: 1 Fall in past year Dental Screening Dental Screen Date: 12/05/24 Did you have a dental visit in the last 12 months?: Yes Did you have a dental problem in the last 6 months where you did not have access to dental care?: Yes HPI follow up HPI Details The patient is an 79-year-old male presenting for a routine checkup and management of chronic conditions. He reports worsening lower back pain attributed to spinal stenosis, which was confirmed by previous imaging studies. The pain has become more severe, limiting his mobility and daily activities. 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 He also has multilevel thoracolumbar spondylosis, contributing to his chronic back pain. He has been diagnosed with Parkinson's disease, which has resulted in gait abnormalities. He is currently on Eliquis for a history of pulmonary embolism and takes Celebrex for joint stiffness. The patient experiences anemia, which was identified in recent blood work, and he has been advised to monitor this condition. He also reports constipation, likely exacerbated by iron supplements, and has been recommended to use Colace and MiraLAX regularly. Social History - Exercise: Patient attempts to walk a m ile when possible, indicating a level of physical activity. - Family Status: Lives with his , pr oviding support at home. 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 Spinal stenosis Overweight (BMI 25.0-29.9) Pulmonary embolism Joint stiffness Varicella zoster BPH (benign prostatic hyperplasia) Diverticulosis Vitamin B12 deficiency Tubular adenoma Basal cell carcinoma (BCC) in situ of skin Mild hypercholesterolemia GERD (gastroesophageal reflux disease) Chest tightness Gait abnormality Parkinsonism Dyspnea Inguinal hernia Allergies Chronic GERD Social History Housing: Homeless Patient Tobacco Use Status: Never used Tobacco e-Cigarette/Vaping Use: Never Used service: Yes Current occupational status: retired Current occupation: right handed Questionnaire PHQ-9 Over the last 2 weeks, how often have you been bothered by any of the following problems? 1. Little interest or pleasure in doing things: not at all 2. Feeling down, depressed, or hopeless: not at all 3. Trouble falling or staying asleep, or sleeping too much: not at all 4. Feeling tired or having little energy: not at all 5. Poor appetite or overeating: not at all 6. Feeling bad about yourself - or that you are a failure or have let yourself or your family down: not at all 7. Trouble concentrating on things, such as reading the newspaper or watching television: not at all 8. Moving or speaking so slowly that other people could have noticed. Or the opposite - being so fidgety or restless that you have been moving around a lot more than usual: not at all 9. Thoughts that you would be better off or of hurting yourself in some way: not at all Total score: 0 Depression Screening Interpretation: Negative Depression Screening Done: Yes 47670 - PHQ-9 Billing: Yes Source: Developed by Drs. Theron Greene, Chula Gutierrez, John Hawk and colleagues, with an educational carmine from [employer]. Thrive Questionnaire I am a: Patient What is your living situation today?: I have a steady place to live Within the past 12 months, did the food you bought not last and you didn't have the money to get more?: Never true Within the past 12 months, did you worry whether your food would run out before you got money to buy more?: Never true Do you have trouble paying for medicines?: No Do you have trouble getting transportation to medical appointments?: No Do you have trouble paying your heating and electricity bill?: No Do you have trouble taking care of your child, family member or friend?: No Do you have trouble with day-to-day activities such as bathing, preparing meals, shopping, managing finances, etc.?: No Are you currently unemployed and looking for a job?: No Are you interested in more education?: Yes THRIVE Score: 0 AUDIT C Alcohol Use Questionnaire (AUDIT-C) 1. How often do you have a drink containing alcohol?: Monthly or less 2. How many drinks containing alcohol do you have on a typical day when you are drinking?: 1 or 2 3. How often do you have six or more drinks on one occasion?: Never Total Score: 1 Score Reviewed/Action Taken: No KATY-7 AMB Questionnaire KATY-7 Feeling nervous, anxious, or on edge: 0 = Not at all Not being able to stop or control worryin = Not at all Worrying too much about different things: 0 = Not at all Trouble relaxin = Not at all Being so restless that it is hard to sit still: 0 = Not at all Becoming easily annoyed or irritable: 0 = Not at all Feeling afraid as if something awful might happen: 0 = Not at all Total KATY-7 score (0-4 normal; 5-9 mild; 10-14 moderate; 15-21 severe): 0 Source: Developed by Drs. Theron Greene, Chula Gutierrez, John Hawk and colleagues, with an educational carmine from [employer]. KATY-7 Assessment Billing KATY-7 Assessment Tool: KATY-7 Assessment 50419 Review of Systems Const Details: - Musculoskeletal: Reports worsening lower back pain, denies recent falls. - Neurological: Reports gait abnormalities, denies recent changes in neurological status. - Cardiovascular: Denies chest pain. - Gastrointestinal: Reports constipation, denies black or bloody stools. All systems reviewed & are unremarkable except as noted in HPI and below Physical exam (Primary Care) Vital Signs: Last Vital Signs Temp 97.5 F 12/05/24 11:14 Pulse 82 12/05/24 11:14 BP 122/76 12/05/24 11:14 Pulse Ox 96 12/05/24 11:14 Care Plan Goal for BP management: <140/90 at Goal BMI result Body Mass Index 25.6 Tobacco/Smoking Status: Tobacco use Status Tobacco use date assessed 12/05/24 12/05/24 11:17 Patient Tobacco Use Status Never used Tobacco 12/05/24 11:17 e-Cigarette/Vaping Use Never Used 12/05/24 11:17 PHQ-9: PHQ-9 Score PHQ-9: Total score 0 12/05/24 11:17 Depression Screening Interpretation: Negative Const Other: Appearance: Alert. Oriented X3. No acute distress. Head: Normal external exam. Normocephalic. Atraumatic. Eyes: Pupils are equal, round, and reactive to light. Extraocular movements intact. Conjunctiva and sclera normal. Eyelids normal. Throat: Pharynx normal. Uvula midline. Moist mucous membranes. Neck: Normal inspection. Neck supple. Full range of motion. Cardiovascular: Normal heart rate and rhythm. Heart sound normal. No murmurs noted. Pulses normal throughout. Respiratory: No respiratory distress. Painless inspiration. Back: No costovertebral angle tenderness. Limited range of motion noted due to pain. Diagnosed with spinal stenosis and lumbar spondylosis. Skin: Skin warm and dry. Normal skin color. Normal skin turgor. No rashes/lesions/lacerations noted. Extremities: Extremities exhibit normal range of motion. Extremities nontender. Neuro: Oriented X 3. No motor deficit. No sensory deficit. Reflexes normal. 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 - Labs: Recent blood work indicates anemia. 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 He is advised to continue physical therapy exercises at home and consider the use of a back brace for support. Surgical intervention is not preferred at this time, and the patient is informed about the risks of injections. Condition is chronic and stable will continue to monitor. 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 Management includes the use of Celebrex for joint stiffness and Tylenol Arthritis for pain relief. Condition is chronic and stable continue to monitor. (3) Parkinsonism: Code(s): G20.C - Parkinsonism, unspecified Category: Medical Plan: The patient has parkinsonian disease, which affects his gait. He is encouraged to maintain physical activity as tolerated and continue current medications. Condition is chronic and stable will continue to monitor. (4) Anemia: Code(s): D64.9 - Anemia, unspecified Category: Medical Plan: The patient has mild anemia, as indicated by recent blood work. He is advised to monitor his condition and ensure adequate nutritional intake. Condition is chronic and stable will continue to monitor. (5) Constipation: Code(s): K59.00 - Constipation, unspecified Category: Medical Plan: The patient experiences constipation, likely due to iron supplements. He is instructed to take Colace and MiraLAX regularly to manage this condition. Plan Plan Patient was informed and verbally consented to the use of an ambient scribe for clinic note documentation during this visit. 1. Spinal Stenosis The patient reports worsening lower back pain due to spinal stenosis, confirmed by imaging. He is advised to continue physical therapy exercises at home and consider the use of a back brace for support. Surgical intervention is not preferred at this time, and the patient is informed about the risks of injections. 2. 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 Management includes the use of Celebrex for joint stiffness and Tylenol Arthritis for pain relief. 3. Parkinson's Disease The patient has Parkinson's disease, which affects his gait. He is encouraged to maintain physical activity as tolerated and continue current medications. 4. Anemia The patient has mild anemia, as indicated by recent blood work. He is advised to monitor his condition and ensure adequate nutritional intake. 5. Constipation The patient experiences constipation, likely due to iron supplements. He is instructed to take Colace and MiraLAX regularly to manage this condition. During the visit, we discussed the management of the patient's spinal stenosis, emphasizing the continuation of physical therapy exercises and the potential use of a back brace. We reviewed the risks associated with surgical intervention and injections, deciding against these options at this time. The patient was advised on the use of Celebrex and Tylenol Arthritis for pain management and was informed about the importance of monitoring his anemia and managing constipation with Colace and MiraLAX. Medications: New polyethylene glycol 3350 (Miralax) 17 grams PO DAILY 510 grams 1RF acetaminophen ER (Tylenol Arthritis Pain) 1,300 mg (2 x 650 mg) PO Q8H 30 tabs 1RF docusate sodium (Colace) 100 mg PO BID 90 caps 1RF Patient Instructions: - Continue physical therapy exercises at home to manage back pain. - Consider using a back brace for additional support. - Take Celebrex and Tylenol Arthritis as prescribed for joint stiffness and pain relief. - Monitor anemia and ensure adequate nutritional intake. - Take Colace and MiraLAX regularly to manage constipation. - Schedule a follow-up appointment in February.
[2024-12-05 11:14] VITALS: BP 122/76; PULSE 82; TEMP 36.4; O2SAT 96; BMI 25.6
== END 2024-12-05 11:41 | disposition home or self-care (01) ==
LOC: HO.HMCSH 10:33
PROVIDERS: PCP Internal Medicine; Visit Provider Physician Assistant Medical
DX: M48.00 Spinal stenosis, site unspecified (principal); M47.816 Spondylosis without myelopathy or radiculopathy, lumbar region; G20.C Parkinsonism, unspecified; D64.9 Anemia, unspecified; K59.00 Constipation, unspecified

== ENCOUNTER → 2024-12-05 10:33 | Outpatient (BNVA) | payer MEDICARE, SELFPAY | PROVIDERS: PCP Internal Medicine; Visit Provider Physician Assistant Medical | DX: M48.00 Spinal stenosis, site unspecified (principal); M47.816 Spondylosis without myelopathy or radiculopathy, lumbar region; G20.C Parkinsonism, unspecified; D64.9 Anemia, unspecified; K59.00 Constipation, unspecified | CPT/HCPCS: 96127; 99212 ==

== ENCOUNTER 2024-12-12 11:46 | Outpatient (AMB) | payer MEDICARE, SELFPAY ==
[2024-12-12 11:43] VITALS: BP 112/71; PULSE 78; RESP 18; TEMP 36.8; O2SAT 94; BMI 25.2
--- NOTE | 2024-12-12 11:43 | MHC.PC.OV ---
Vital Signs 12/12/24 11:43 Height 5 ft 5.5 in Weight 154 lb BMI 25.2 BP 112/71 Respiration 18 Pulse 78 Pulse Source Pulse Oximeter Temp 98.2 F Temp Source Temporal Artery Scan Pulse Oximetry (%) 94 Oxygen Delivery Method Room Air Intake Visit Reasons: productive cough, sneezing X 2 days Educational Aid Required: No Accompanied by: Spouse Allergies No Known Allergies (No Known Allergies*) Allergy (Verified 12/12/24 13:10) Medication List - Last Reconciled 12/12/24 by Valeria Hope PA-C acetaminophen ER (Tylenol Arthritis Pain) 1,300 mg (2 x 650 mg) PO Q8H amoxicillin-pot clavulanate 875-125 mg 1 tab PO BID 10 days apixaban (Eliquis) 5 mg PO BID 90 days carbidopa-levodopa 25-100 mg 1.5 tabs PO TID 90 days celecoxib 200 mg PO DAILY cholecalciferol (vitamin D3) 25 mcg PO DAILY cyclobenzaprine 10 mg PO Q8H docusate sodium (Colace) 100 mg PO BID ferrous sulfate 325 mg PO DAILY finasteride 5 mg PO DAILY fluticasone propionate 50 mcg/actuation (Flonase Allergy Relief) 1 spray intranasal BID omeprazole 40 mg PO BID 90 days polyethylene glycol 3350 (Miralax) 17 grams PO DAILY Tobacco use date assessed: 12/05/24 Dental Screening Dental Screen Date: 12/05/24 HPI productive cough, sneezing X 2 days HPI Details The patient is an 79-year-old male presenting with upper respiratory symptoms which include nasal congestion/rhinorrhea, sore throat, intermittent in cough that began this morning. Although patient reports the cough is not as severe as the nasal congestion/rhinorrhea. Patient's at bedside who was recently treated for pneumonia with Augmentin last week. They deny any other sick contacts. He denies any recent travel. He denies any fevers, neck pain or stiffness, chest pain or shortness of breath, dyspnea on exertion, nausea vomiting or diarrhea, rashes or any other symptoms complaints or concerns at this time. 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 Spinal stenosis Overweight (BMI 25.0-29.9) Pulmonary embolism Joint stiffness Varicella zoster BPH (benign prostatic hyperplasia) Diverticulosis Vitamin B12 deficiency Tubular adenoma Basal cell carcinoma (BCC) in situ of skin Mild hypercholesterolemia GERD (gastroesophageal reflux disease) Chest tightness Gait abnormality Parkinsonism Dyspnea Inguinal hernia Allergies Chronic GERD Social History Housing: House Patient Tobacco Use Status: Never used Tobacco e-Cigarette/Vaping Use: Never Used service: Yes Current occupational status: retired Questionnaire PHQ-9 Over the last 2 weeks, how often have you been bothered by any of the following problems? 1. Little interest or pleasure in doing things: not at all 2. Feeling down, depressed, or hopeless: not at all 3. Trouble falling or staying asleep, or sleeping too much: not at all 4. Feeling tired or having little energy: not at all 5. Poor appetite or overeating: not at all 6. Feeling bad about yourself - or that you are a failure or have let yourself or your family down: not at all 7. Trouble concentrating on things, such as reading the newspaper or watching television: not at all 8. Moving or speaking so slowly that other people could have noticed. Or the opposite - being so fidgety or restless that you have been moving around a lot more than usual: not at all 9. Thoughts that you would be better off or of hurting yourself in some way: not at all Total score: 0 Depression Screening Interpretation: Negative Depression Screening Done: Yes 22524 - PHQ-9 Billing: Yes Source: Developed by Drs. Theron Greene, Chula Gutierrez, John Hawk and colleagues, with an educational carmine from [employer]. Thrive Questionnaire Date Thrive assessed: 12/05/24 I am a: Patient What is your living situation today?: I have a steady place to live Within the past 12 months, did the food you bought not last and you didn't have the money to get more?: Never true Within the past 12 months, did you worry whether your food would run out before you got money to buy more?: Never true Do you have trouble paying for medicines?: No Do you have trouble getting transportation to medical appointments?: No Do you have trouble paying your heating and electricity bill?: No Do you have trouble taking care of your child, family member or friend?: No Do you have trouble with day-to-day activities such as bathing, preparing meals, shopping, managing finances, etc.?: No Are you currently unemployed and looking for a job?: No Are you interested in more education?: Yes THRIVE Score: 0 AUDIT C Alcohol Use Questionnaire (AUDIT-C) 1. How often do you have a drink containing alcohol?: Monthly or less 2. How many drinks containing alcohol do you have on a typical day when you are drinking?: 1 or 2 3. How often do you have six or more drinks on one occasion?: Never Total Score: 1 Score Reviewed/Action Taken: No KATY-7 AMB Questionnaire KATY-7 Date KATY - 7 assessed: 12/05/24 Feeling nervous, anxious, or on edge: 0 = Not at all Not being able to stop or control worryin = Not at all Worrying too much about different things: 0 = Not at all Trouble relaxin = Not at all Being so restless that it is hard to sit still: 0 = Not at all Becoming easily annoyed or irritable: 0 = Not at all Feeling afraid as if something awful might happen: 0 = Not at all Total KATY-7 score (0-4 normal; 5-9 mild; 10-14 moderate; 15-21 severe): 0 Source: Developed by Drs. Theron Greene, Chula Gutierrez, John Hawk and colleagues, with an educational carmine from [employer]. KATY-7 Assessment Billing KATY-7 Assessment Tool: KATY-7 Assessment 77879 Review of Systems Const Details: - Respiratory: Reports cough, denies fever - ENT: Reports nasal congestion and rhinorrhea Physical exam (Primary Care) Vital Signs: Last Vital Signs Temp 98.2 F 12/12/24 11:43 Pulse 78 12/12/24 11:43 Resp 18 12/12/24 11:43 BP 112/71 12/12/24 11:43 Pulse Ox 94 12/12/24 11:43 Oxygen Delivery Method Room Air 12/12/24 11:43 Care Plan Goal for BP management: <140/90 at Goal BMI result Body Mass Index 25.2 Tobacco/Smoking Status: Tobacco use Status Tobacco use date assessed 12/05/24 12/12/24 11:45 Patient Tobacco Use Status Never used Tobacco 12/12/24 11:45 e-Cigarette/Vaping Use Never Used 12/12/24 11:45 PHQ-9: PHQ-9 Score PHQ-9: Total score 0 12/12/24 11:51 Depression Screening Interpretation: Negative Thrive Assessment: Date of Thrive Assessment Date Thrive assessed 12/05/24 12/12/24 11:45 Const Other: Appearance: Alert. Oriented X3. No acute distress. Head: Normal external exam. Normocephalic. Atraumatic. Eyes: Pupils are equal, round, and reactive to light. Extraocular movements intact. Conjunctiva and sclera normal. Eyelids normal. Ears: External auditory canal normal. Tympanic membranes normal. Throat: Pharynx normal. Uvula midline. Moist mucous membranes. Neck: Normal inspection. Neck supple. Full range of motion. No adenopathy. Thyroid Normal. No meningeal signs. No neck mass noted. Cardiovascular: Normal heart rate and rhythm. Heart sound normal. No murmurs noted. Pulses normal throughout. Respiratory: No respiratory distress. Painless inspiration. Breath sounds normal. No wheezes/rales/rhonchi noted. Chest nontender. No accessory muscle usage noted or decreased air movement noted. Abdomen: Soft and nontender. Back: Full range of motion noted. Skin: Skin warm and dry. Normal skin color. Normal skin turgor. No rashes/lesions/lacerations noted. Extremities: Extremities exhibit normal range of motion. Neuro: Oriented X 3. No motor deficit. No sensory deficit. Reflexes normal. Coding Level of Care Code Est Pt Level 4 (05744) Complex EM visit Add On G2211 Diagnoses Upper respiratory infection J06.9 Additional Codes KATY-7 Assessment Billing - KATY-7 Assessment Tool: KATY-7 Assessment 89903 ([id number]) PHQ-9 - 68116 - PHQ-9 Billing: Yes ([id number]) Assessment & Plan Assessment & Plan (1) Upper respiratory infection: Code(s): J06.9 - Acute upper respiratory infection, unspecified Category: Medical Plan: The patient will be treated with Augmentin, 875 mg twice daily for 10 days, to address the bacterial pneumonia. A COVID-19 swab and chest x-ray are recommended to rule out other potential causes of symptoms. Along with instructions return if any new or worsening symptoms. Condition is stable will continue to monitor. Plan Plan Patient was informed and verbally consented to the use of an ambient scribe for clinic note documentation during this visit. 1. Upper respiratory infection/bronchitis The patient will be treated with Augmentin, 875 mg twice daily for 10 days, to address the upper respiratory infection. A COVID-19 swab and chest x-ray are recommended to rule out other potential causes of symptoms. The patient is advised to follow up with a integration project manager next Wednesday to discuss the recent illness and treatment. I discussed with the patient the likely diagnosis of upper respiratory infection possible pneumonia and the treatment plan involving Augmentin for 10 days. I recommended a COVID-19 swab and chest x-ray to rule out other causes, and advised a follow-up if any new or worsening symptoms or if symptoms are not improved with the antibiotics. Patient and at bedside understand and agree with this plan. Orders: Orders SARS-CoV2/FLU/RSV Today R09.89 - Other specified symptoms and signs involving the circulatory and respiratory systems XR chest 2V Today J06.9 - Acute upper respiratory infection, unspecified Medications: New amoxicillin-pot clavulanate 875-125 mg 1 tab PO BID 20 tabs 0RF 10 days fluticasone propionate 50 mcg/actuation (Flonase Allergy Relief) administer into each nostril 1 spray intranasal BID 16 grams 0RF Patient Instructions: - Take Augmentin 875 mg twice daily for 10 days. - Consider getting a COVID-19 swab and chest x-ray to rule out other causes. - Follow up if any new or worsening symptoms or symptoms worsen despite being on Augmentin - Continue taking Tylenol as needed for symptom relief.
== END 2024-12-12 12:02 | disposition home or self-care (01) ==
LOC: HO.HMCSH 11:46
PROVIDERS: PCP Internal Medicine; Visit Provider Physician Assistant Medical
DX: J06.9 Acute upper respiratory infection, unspecified (principal)

== ENCOUNTER → 2024-12-12 11:46 | Outpatient (BNVA) | payer MEDICARE, SELFPAY | PROVIDERS: PCP Internal Medicine; Visit Provider Physician Assistant Medical | DX: J06.9 Acute upper respiratory infection, unspecified (principal) | CPT/HCPCS: 96127; 99212 ==

== ENCOUNTER 2025-02-19 12:49 | Outpatient (AMB) | payer MEDICARE, SELFPAY ==
[2025-02-19 13:03] VITALS: BP 104/62; PULSE 79; O2SAT 94; BMI 24.9
--- NOTE | 2025-02-19 13:03 | A.OFFVIS_ITS ---
Vital Signs 02/19/25 13:03 Height 5 ft 5.5 in Weight 152 lb BMI 24.9 BP 104/62 Blood Pressure Location Lt brachial Position Sitting Pulse 79 Pulse Source Pulse Oximeter Pulse Oximetry (%) 94 Oxygen Delivery Method Room Air Intake Visit Reasons: Pulmonary embolism Allergies No Known Allergies (No Known Allergies*) Allergy (Verified 02/19/25 13:11) HPI Comments Details: The patient is an 80-year-old gentleman with a diagnosis of pre Parkinson's with unsteady gait who presents with history of recent blood clots. Patient states that he was in his usual state health until recently we had a fall. He did not tell anybody. He did injure his right upper extremity. Subsequently after that he started feeling some night sweats and also some dizziness. He was evaluated at his primary care doctor's office where he was having low blood pressure of 80 systolic. Therefore, he was sent over to the ER there he was evaluated. He did have blood work done renal function was normal hemoglobin stable cardiac enzymes stable. Although his D-dimer was significantly elevated. Therefore, he did undergo CTA which I personally reviewed with him. Patient did have multiple subsegmental pulmonary emboli. It was also noted that he had some RV strain on the CT scan of the chest. No nodular densities. The patient did have a hemangioma that has been evaluated for in addition to that a cyst in the kidney appeared to be benign. The patient was evaluated in the ER he was given Eliquis as far as the loading dose and then he was discharged. He still feels the night sweats. He is tolerating the medicine has not noticed any minor major bleeding. The patient is not aware of any surgeries recently and is not aware of any from except for the fall hurting his right arm. Therefore, he was sent over for ultrasound Doppler of the upper and lower extremities demonstrating no evidence of any DVT. I talked to the family the patient regarding concerns about unprovoked pulmonary emboli and the possibility of an occult malignancy. The patient is having some constitutional symptoms with night sweats. Again, he was being evaluated for the hemangioma. Also has renal cyst. 06/16/2024 the patient is here for a pulmonary follow-up visit. Overall the patient has been doing well. He is tolerating the Eliquis 5 mg twice a day without any issues. Although it is expensive. Denies any minor major bleeding. He is having issues with his legs in have gotten a little weaker. He does use a cane good effect. Does not feel like he needs a walker. He understands that he has be careful not to fall specially on the blood thinners. The patient did have V/Q scan over the fall demonstrating no evidence of any chronic thr omboembolic disease. No evidence of any residual clot. In addition to that he recently had a CT scan of the chest which I personally reviewed. He had contrast although his pulmonary vessels 1 completely opacified. Not too concerned about residual clots since his V/Q scan was normal. Still his parenchyma is good and no evidence of any nodular densities or any concerning findings. We did talk about continuing the Eliquis at the current dose to go further into next year specially since he is tolerating it. At that time since we dealing with an unprovoked clot we can decide for him to continue the current dose, decrease to the prophylactic dose which will be reasonable or stop the medication and monitor closely his D-dimer. Will discuss that further when he comes in. At this point since he is tolerating the medicine is doing well from a pulmonary standpoint and his echocardiogram is reassuring I will just continue with current plan. 02/19/2025 the patient is here for pulmonary follow-up visit. Overall the patient has been doing well. He continues on the Eliquis 5 mg twice a day without any issues. Denies any minor major bleeding. He has also been using a cane and he has been very stable on his feet has not fallen. Overall reassuring. We did review all his findings. He is still considered to have an unprovoked event. We talked about different options including continuing the 5 mg twice a day because of the high risk for re clotting versus decreasing the dose to the 2.5 mg twice a day for prophylactic dose to minimize bleeding in the other option will be to stop the Eliquis altogether and to check the D-dimer serially to make sure that is not going up because of the risk of clotting. At this time the patient is doing well and would like not to change anything based on the fact that is not having any adverse effects. I do agree with him. Will continue with the current dose but consider decreasing the dose if there is any evidence of any minor bleeding or if there is increased risk for falls. Patient follow-up in a year's time if he has any issues prior to this he will call for an earlier assessment. 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 Spinal stenosis Overweight (BMI 25.0-29.9) Pulmonary embolism Joint stiffness Varicella zoster BPH (benign prostatic hyperplasia) Diverticulosis Vitamin B12 deficiency Tubular adenoma Basal cell carcinoma (BCC) in situ of skin Mild hypercholesterolemia GERD (gastroesophageal reflux disease) Chest tightness Gait abnormality Parkinsonism Dyspnea Inguinal hernia Allergies Chronic GERD Social History Housing: House Patient Tobacco Use Status: Never used Tobacco e-Cigarette/Vaping Use: Never Used service: Yes Current occupational status: retired Review of Systems Const Denies fever(s) Eyes Reports no additional complaints ENT Reports nasal congestion Card Denies chest pain and Reports dyspnea on exertion Resp Denies pain on inspiration, Denies pain with cough, Reports dyspnea on exertion and Denies wheezing GI Reports no additional complaints Musc Reports abnormal gait, Reports myalgias and Reports limited range of motion Skin/Breast Denies rash Neuro Reports abnormal gait Endo Reports no additional complaints Neftali/Lymph Reports no additional complaints Aller/Immun Denies wheezing Physical Exam Vital Signs: Last Vital Signs Pulse 79 02/19/25 13:03 BP 104/62 02/19/25 13:03 Pulse Ox 94 02/19/25 13:03 Oxygen Delivery Method Room Air 02/19/25 13:03 BMI result Body Mass Index 24.9 Const General: comfortable HEENT Head: Yes normocephalic Neck Neck: Yes supple Chest Chest palpation & inspection: normal inspection of the chest Resp Effort & Inspection: normal respiratory effort Auscultation: diminished lung sounds Cardio Heart sounds: S1 normal heart sound present and S2 normal heart sound present GI Palpation (GI): Soft to palpation Skin General skin exam: no rashes or lesions noted Extrem General: Yes no clubbing, cyanosis or edema Assessment & Plan Assessment & Plan (1) Pulmonary embolism: Comment: Currently on Eliquis Code(s): I26.99 - Other pulmonary embolism without acute cor pulmonale Category: Medical Qualifiers: Pulmonary embolism type: multiple subsegmental (without acute cor pulmonale) Qualified Code(s): I26.94 - Multiple subsegmental thrombotic pulmonary emboli without acute cor pulmonale (2) Dyspnea: Code(s): R06.00 - Dyspnea, unspecified Category: Medical Qualifiers: Dyspnea type: dyspnea on exertion Qualified Code(s): R06.09 - Other forms of dyspnea Plan Experienced a unprovoked PE. REC: continue Eliquis 5mg BID, conisder decreasing to prophylactic dose. We will discuss further during his F/U F/U 8-12 months Medications: Refilled apixaban (Eliquis) 5 mg PO BID 180 tabs 3RF 90 days Coding Level of Care Code Est Pt Level 4 (70253) Complex EM visit Add On G2211 Diagnoses Multiple subsegmental pulmonary emboli without acute cor pulmonale I26.94 Pulmonary embolism type: multiple subsegmental (without acute cor pulmonale) Dyspnea on exertion R06.09 Dyspnea type: dyspnea on exertion Time Spent (min) 16
--- OUTSIDE RECORDS SUMMARY | 2025-02-19 17:36 | XMS_ITS | Clinical Summary ---
Author Organization [facility] Address [address] [place] [address] [place] [id number] Phone Care Team Providers Care [employer] Name Role Phone LinetteTheron DO Primary Care Provider Allergies No known active allergies Medications finasteride (PROSCAR) 5 mg tablet Take 5 mg by mouth daily. Active cholecalciferol 5,000 unit/mL oral drops Take by mouth. Active fluticasone propionate (FLONASE) 50 mcg/actuation nasal spray 1 spray by Nasal route daily. Active ipratropium (ATROVENT) 0.03 % nasal sprayIndications :Sore throat 2 sprays by Nasal route every 12 (twelve) hours. 30 mL 3 03/15/2019 Active Active Problems Problem Noted Date Diagnosed Date Sore throat 03/09/2019 Social History Tobacco Use Types Packs/Day Years Used Date Smoking Tobacco: Never Assessed Education Answer Date Recorded Are you interested in more education? Not on liz e 10/02/2022 Are you concerned about learning? Not on file 10/02/2022 No 10/02/2022 No 10/02/2022 Digital Access Answer Date Recorded No 10/31/2022 No 10/31/2022 Reliable internet access at home? Not on file 10/31/2022 Device with a working camera? Not on file Sex and Gender Information Value Date Recorded Sex Assigned at Not on file Legal Sex Male 10:09 PM EDT Gender Identity Not on file Sexual Orientation Not on file Last Filed Vital Signs Vital Sign Reading Time Taken Comments Blood Pressure - - Pulse - - Temperature - - Respiratory Rate 20 03/09/2019 9:26 AM EDT Oxygen Saturation - - Inhaled Oxygen Concentration - - Weight 65.8 kg (145 lb) 03/09/2019 9:26 AM EDT Height - - Body Mass Index - - Plan of Treatment Health Maintenance Due Date Last Done Comments Adult Td,Tdap Booster 1945 DEPRESSION SCREENING 1956 ZOSTER VACCINES (1 of 2) 01/22/1994 PNEUMOCOCCAL VACCINES (50+ years) (2 of 2 - PPSV23) 05/07/2017 05/07/2016 RSV VACCINE (1 - 1-dose 75+ series) 01/22/2019 INFLUENZA VACCINE (#1) 2025 , 04/04/2019, 04/05/2018, Additional history exists COVID-19 VACCINE ( - season) 2025 07/31/2020, 07/10/2020 HEPATITIS A VACCINES Aged Out No long er eligible based on patient's age to complete this topic HIB VACCINES Aged Out No longer eligi ble based on patient's age to complete this topic MENINGOCOCCAL VACCINES (ACWY) Aged Out No longer eligible based on patient's age to complete this topic MENINGOCOCCAL VACCINES (B) Aged Out N o longer eligible based on patient's age to complete this topic Medical Devices Not on file Insurance MEDICARE PART A & B Member Subscriber Plan / Payer (Ef fective 2009-Present) Name:Maurice Riddle Member ID:[id number] Relation to Subscriber:Self Name:Maurice Riddle Subscriber ID:[id number] Payer ID:[id number] Group ID:Not on file Type:Medicare Address: [facility] [employer] [facility] [address] [facility] [place] [address] [employer] MEDEX SUPPLEMENT MEDICARE PART A & B [facility] MEDEX SUPPLEMENT MEDICARE PART A & B [employer] MEDEX SUPPLEMENT MEDICARE PART A & B [employer] MEDEX SUPPLEMENT MEDICARE PART A & B [employer] MEDEX SUPPLEMENT MEDICARE PART A & B [employer]OSS MEDEX SUPPLEMENT MEDICARE PART A & B [employer] MEDEX SUPPLEMENT MEDICARE PART A & B [employer] MEDEX SUPPLEMENT MEDICARE PART A & B [employer] MEDEX SUPPLEMENT Care Teams [employer] Relationship Specialty Start Date End Date Theron Sue DO [address] [place] [phone] PCP - General Internal Medicine 02/08/19 Additional Source Comments The information contained in this document represents components of the legal health record. It is not the complete legal health record.[facility]
== END 2025-02-19 13:26 | disposition home or self-care (01) ==
LOC: HO.HPS 12:50
PROVIDERS: PCP Internal Medicine; Visit Provider Hospitalist
DX: I26.94 Multiple subsegmental thrombotic pulmonary emboli without acute cor pulmonale (principal); R06.09 Other forms of dyspnea
CPT/HCPCS: 99214; G2211

== ENCOUNTER → 2025-02-19 12:49 | Outpatient (BNVA) | payer MEDICARE, SELFPAY | PROVIDERS: PCP Internal Medicine; Visit Provider Hospitalist | DX: I26.94 Multiple subsegmental thrombotic pulmonary emboli without acute cor pulmonale (principal); R06.09 Other forms of dyspnea | CPT/HCPCS: 99212 ==

== ENCOUNTER 2025-03-05 12:57 | Outpatient (AMB) | payer MEDICARE, SELFPAY ==
--- NOTE | 2025-03-05 12:59 | MHC.PC.OV ---
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 Required: No Accompanied by: Spouse Allergies No Known Allergies (No Known Allergies*) Allergy (Verified 03/05/25 13:20) Medication List - Last Reconciled 03/05/25 by Valeria Hope PA-C acetaminophen ER (Tylenol Arthritis Pain) 1,300 mg (2 x 650 mg) PO Q8H apixaban (Eliquis) 5 mg PO BID 90 days carbidopa-levodopa 25-100 mg 1.5 tabs PO TID 90 days celecoxib 200 mg PO DAILY cholecalciferol (vitamin D3) 25 mcg PO DAILY cyclobenzaprine 10 mg PO Q8H docusate sodium (Colace) 100 mg PO BID finasteride 5 mg PO DAILY omeprazole 40 mg PO BID 90 days Tobacco use date assessed: 03/05/25 Fall risk assessment: No Falls in past year Last assessed Fall Risk: 03/05/25 Dental Screening Dental Screen Date: 03/05/25 Did you have a dental visit in the last 12 months?: Yes Was dental information given to patient?: Patient has dentist HPI 6 month f/u HPI Details The patient is an 80-year-old male presenting with chronic back pain and mobility issues. The back pain is attributed to spinal stenosis and degenerative spondylosis, as identified in a 2020 MRI, which showed multilevel degenerative disc disease and spinal stenosis at L4-L5. The patient experiences episodes of incapacitation, particularly during physical activities such as walking, where he may require assistance to move. The patient reports using compression knee braces and a cane to aid mobility, although he has not yet used a walker or rollator. He describes a sensation rito to nerve shocks in his legs and occasional numbness in his hands, which have not been conclusively linked to Parkinson's disease despite previous evaluations. A renal cyst was identified, but it was deemed non-concerning by Dr. Simmons following an ultrasound evaluation. The patient was advised against surgical intervention for a cyst located between the buttocks due to anticoagulation therapy with Eliquis. The patient experiences postnasal drip, particularly at night, and has been advised to take Ni daily to manage allergy-like symptoms. The patient occasionally experiences anxiety and confusion, particularly when preparing for travel, and has been prescribed Ativan to manage these episodes. 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 Father No problems noted. Social History Housing: House Patient Tobacco Use Status: Never used Tobacco e-Cigarette/Vaping Use: Never Used service: Yes Current occupational status: retired Cognitive needs: No Hearing needs: Yes Vision needs: Yes (rx glasses) Questionnaire PHQ-9 Over the last 2 weeks, how often have you been bothered by any of the following problems? 1. Little interest or pleasure in doing things: not at all 2. Feeling down, depressed, or hopeless: not at all 3. Trouble falling or staying asleep, or sleeping too much: not at all 4. Feeling tired or having little energy: not at all 5. Poor appetite or overeating: not at all 6. Feeling bad about yourself - or that you are a failure or have let yourself or your family down: not at all 7. Trouble concentrating on things, such as reading the newspaper or watching television: not at all 8. Moving or speaking so slowly that other people could have noticed. Or the opposite - being so fidgety or restless that you have been moving around a lot more than usual: not at all 9. Thoughts that you would be better off or of hurting yourself in some way: not at all Total score: 0 Depression Screening Interpretation: Negative Depression Screening Done: Yes 07255 - PHQ-9 Billing: Yes Source: Developed by Drs. Theron Greene, Chula Gutierrez, John Hawk and colleagues, with an educational carmine from [employer]. Thrive Questionnaire Date Thrive assessed: 03/05/25 I am a: Patient What is your living situation today?: I have a steady place to live Within the past 12 months, did the food you bought not last and you didn't have the money to get more?: Never true Within the past 12 months, did you worry whether your food would run out before you got money to buy more?: Never true Do you have trouble paying for medicines?: No Do you have trouble getting transportation to medical appointments?: No Do you have trouble paying your heating and electricity bill?: No Do you have trouble taking care of your child, family member or friend?: No Do you have trouble with day-to-day activities such as bathing, preparing meals, shopping, managing finances, etc.?: No Are you currently unemployed and looking for a job?: No Are you interested in more education?: Yes THRIVE Score: 0 AUDIT C Alcohol Use Questionnaire (AUDIT-C) 1. How often do you have a drink containing alcohol?: Monthly or less 2. How many drinks containing alcohol do you have on a typical day when you are drinking?: 1 or 2 3. How often do you have six or more drinks on one occasion?: Never Total Score: 1 Score Reviewed/Action Taken: No KATY-7 AMB Questionnaire KATY-7 Date KATY - 7 assessed: 03/05/25 Feeling nervous, anxious, or on edge: 0 = Not at all Not being able to stop or control worryin = Not at all Worrying too much about different things: 0 = Not at all Trouble relaxin = Not at all Being so restless that it is hard to sit still: 0 = Not at all Becoming easily annoyed or irritable: 0 = Not at all Feeling afraid as if something awful might happen: 0 = Not at all Total KATY-7 score (0-4 normal; 5-9 mild; 10-14 moderate; 15-21 severe): 0 Source: Developed by Naresh Torreset B.W. Matt, John Hawk and colleagues, with an educational carmine from [employer]. KATY-7 Assessment Billing KATY-7 Assessment Tool: KATY-7 Assessment 03986 Review of Systems Const Details: - Musculoskeletal: Reports chronic back pain and weakness in legs. Denies recent falls. - Neurological: Reports numbness in hands and nerve shock sensations in legs. Denies loss of bowel or bladder control. - Respiratory: Denies dyspnea or chest pain. - Psychiatric: Reports episodes of anxiety and confusion, particularly when preparing for travel. - ENT: Reports postnasal drip, particularly at night. All systems reviewed & are unremarkable except as noted in HPI and below Physical exam (Primary Care) Vital Signs: Last Vital Signs Temp 97.5 F 03/05/25 13:00 Pulse 71 03/05/25 13:00 BP 112/65 03/05/25 13:00 Pulse Ox 97 03/05/25 13:00 Oxygen Delivery Method Room Air 03/05/25 13:00 Care Plan Goal for BP management: <140/90 at Goal BMI result Body Mass Index 25.2 BMI Assessment/Plan discussion: High BMI High, discussed plan: lifestyle, weight reduction, dietary, physical activity, alcohol moderation and other Tobacco/Smoking Status: Tobacco use Status Tobacco use date assessed 03/05/25 03/05/25 13:13 Patient Tobacco Use Status Never used Tobacco 03/05/25 13:01 e-Cigarette/Vaping Use Never Used 03/05/25 13:01 PHQ-9: PHQ-9 Score PHQ-9: Total score 0 03/05/25 13:21 Depression Screening Interpretation: Negative Thrive Assessment: Date of Thrive Assessment Date Thrive assessed 03/05/25 03/05/25 13:13 Const Other: Appearance: Alert. Oriented X3. No acute distress. Head: Normal external exam. Normocephalic. Atraumatic. Eyes: Pupils are equal, round, and reactive to light. Extraocular movements intact. Conjunctiva and sclera normal. Eyelids normal. Throat: Pharynx normal. Uvula midline. Moist mucous membranes. Neck: Normal inspection. Neck supple. Full range of motion. Cardiovascular: Normal heart rate and rhythm. Respiratory: No respiratory distress. Painless inspiration. Back: Full range of motion noted. Skin: Skin warm and dry. Normal skin color. Extremities: Extremities exhibit normal range of motion. Extremities nontender. Patient uses a cane and reports weakness in legs, especially after walking. Neuro: Oriented X 3. Normal steady gait moving all extremities no focal deficits are noted. Office Procedures Flu Questionnaire Does the patient have a severe egg allergy?: No Does the patient have severe life threatening allergies?: No Does the patient have a fever or illness today?: No Has the patient ever had Guillain-[place] Syndrome?: No Has the patient ever had any past reaction to a flu shot?: No Immunizations Fluarix [id number] (PF) 45 mcg (15 mcg x 3)/0.5 mL IM syringe Performing Provider: Valeria Hope PA-C [facility] Administered by: Vanessa Martin CMA on 03/05/25 13:27 Dose Route Admin Location Dispensed Lot Number Expiration Date [employer] 0.5 mL IM Right Deltoid 0.5 mL [id number] 12/04/24 [id number] [employer] VIS Given Date VIS Provided VIS Publication Date 03/05/25 Single Vaccine 24 Eligibility Eligibility Date Funding Source Not [facility] Eligible 03/05/25 Private Results Reviewed Results Reviewed: - Imaging: MRI from 2020 showed degenerative spondylosis, multilevel degenerative disc disease, and spinal stenosis at L4-L5. - Ultrasound: Renal cyst evaluated and deemed non-concerning. 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 Physical therapy is recommended to improve mobility and manage symptoms. Consideration for referral to a retail asset protection specialist or neurosurgeon will be made based on MRI results. 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 A rollator walker is recommended for additional support and safety during ambulation. (3) Renal cyst: Code(s): N28.1 - Cyst of kidney, acquired Category: Medical Plan: The renal cyst has been evaluated and is not considered a concern; no further intervention is required at this time. (4) Anxiety: Code(s): F41.9 - Anxiety disorder, unspecified Category: Medical Plan: The patient is prescribed Ativan to manage episodes of anxiety and confusion, particularly during travel preparations. (5) Postnasal drip: Code(s): R09.82 - Postnasal drip Category: Medical Plan: The patient is advised to take Ni daily to manage postnasal drip and associated allergy-like symptoms. Plan Plan Patient was informed and verbally consented to the use of an ambient scribe for clinic note documentation during this visit. 1. Spinal Stenosis The patient will undergo an MRI of the spine to assess the progression of spinal stenosis and degenerative changes. Physical therapy is recommended to improve mobility and manage symptoms. Consideration for referral to a retail asset protection specialist or neurosurgeon will be made based on MRI results. 2. Chronic Back Pain The patient is advised to continue using compression knee braces and a cane for support. A rollator walker is recommended for additional support and safety during ambulation. 3. Renal Cyst The renal cyst has been evaluated and is not considered a concern; no further intervention is required at this time. 4. Anxiety The patient is prescribed Ativan to manage episodes of anxiety and confusion, particularly during travel preparations. 5. Postnasal Drip The patient is advised to take Ni daily to manage postnasal drip and associated allergy-like symptoms. I discussed with the patient the need for an MRI to evaluate the progression of spinal stenosis and degenerative changes. We talked about the benefits of physical therapy and the potential referral to a retail asset protection specialist based on MRI findings. I recommended the use of a rollator walker for safety and mobility, and prescribed Ativan for anxiety management. Orders: Orders Influenza [id number] Immunization Today Z23 - Encounter for immunization MR lumbar spine wo con Today M47.816 - Spondylosis without myelopathy or radiculopathy, lumbar region, M48.00 - Spinal stenosis, site unspecified, R26.9 - Unspecified abnormalities of gait and mobility MR cervical spine wo con Today M48.00 - Spinal stenosis, site unspecified, M54.2 - Cervicalgia Medications: New walker (Ultra-Light Rollator misc) for ambulating daily 1 ea 1RF G20.C - Parkinsonism, unspecified, M17.11 - Unilateral primary osteoarthritis, right knee, M25.60 - Stiffness of unspecified joint, not elsewhere classified, M47.816 - Spondylosis without myelopathy or radiculopathy, lumbar region, M48.00 - Spinal stenosis, site unspecified, M54.2 - Cervicalgia, R26.9 - Unspecified abnormalities of gait and mobility walker (Ultra-Light Rollator misc) for ambulating daily 1 ea 1RF G20.C - Parkinsonism, unspecified, M17.11 - Unilateral primary osteoarthritis, right knee, M25.60 - Stiffness of unspecified joint, not elsewhere classified, M47.816 - Spondylosis without myelopathy or radiculopathy, lumbar region, M48.00 - Spinal stenosis, site unspecified, M54.2 - Cervicalgia, R26.9 - Unspecified abnormalities of gait and mobility lorazepam (Ativan) 0.5 mg PO DAILY PRN 15 tabs 0RF anxiety fexofenadine (Ni Allergy) 180 mg PO DAILY 90 tabs 3RF Patient Instructions: - Continue using compression knee braces and cane for support. - Use a rollator walker for additional support and safety. - Take Ni daily to manage postnasal drip. - Take Ativan as prescribed for anxiety management. - Follow up for MRI results and potential referral to a retail asset protection specialist.
[2025-03-05 13:00] VITALS: BP 112/65; PULSE 71; TEMP 36.4; O2SAT 97; BMI 25.2
--- OUTSIDE RECORDS SUMMARY | 2025-03-05 14:07 | XMS_ITS | Clinical Summary ---
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 Name Role Phone LinetteTheron DO Primary Care [...] file Insurance MEDICARE PART A & B [employer] SUPPLEMENT MEDICARE PART A & B [facility] MEDEX SUPPLEMENT MEDICARE PART A & B [employer] SUPPLEMENT MEDICARE PART A & B [employer] SUPPLEMENT MEDICARE PART A & B [employer] SUPPLEMENT MEDICARE PART A & B [employer] SUPPLEMENT MEDICARE PART A & B [place] [employer] SU[employer] MEDICARE PART A & B [place] [employer] SUPP[employer] MEDICARE PART A & B [employer] SUPPLEMENT Care Teams Pulverizer Operator Relationship Specialty Start Date End Date Theron Sue DO [address] [place] [id number] PCP - General Internal Medicine 02/08/19 Additional Source Comments The information contained in this document represents components of the legal health record. It is not the complete legal health record.[facility]
== END 2025-03-05 14:08 | disposition home or self-care (01) ==
LOC: HO.HMCSH 12:57
PROVIDERS: PCP Internal Medicine; Visit Provider Physician Assistant Medical
DX: M48.00 Spinal stenosis, site unspecified (principal); M47.816 Spondylosis without myelopathy or radiculopathy, lumbar region; N28.1 Cyst of kidney, acquired; F41.9 Anxiety disorder, unspecified; R09.82 Postnasal drip; Z23 Encounter for immunization

== ENCOUNTER → 2025-03-05 12:57 | Outpatient (BNVA) | payer MEDICARE, SELFPAY | PROVIDERS: PCP Internal Medicine; Visit Provider Physician Assistant Medical | DX: M47.816 Spondylosis without myelopathy or radiculopathy, lumbar region (principal); F41.9 Anxiety disorder, unspecified; R41.0 Disorientation, unspecified; M48.00 Spinal stenosis, site unspecified; N28.1 Cyst of kidney, acquired; R09.82 Postnasal drip; G20.C Parkinsonism, unspecified; Z23 Encounter for immunization | CPT/HCPCS: 90471; 90656; 96127; 99212 ==

== ENCOUNTER → 2025-03-26 12:36 | Outpatient (BNV) | payer MEDICARE, SELFPAY | PROVIDERS: PCP Physician Assistant Medical; Visit Provider Radiology Diagnostic Radiology | DX: M43.16 Spondylolisthesis, lumbar region (principal); M99.63 Osseous and subluxation stenosis of intervertebral foramina of lumbar region; M47.812 Spondylosis without myelopathy or radiculopathy, cervical region | CPT/HCPCS: 72141; 72148 ==

== ENCOUNTER 2025-03-26 12:38 | Outpatient (REF) | payer MEDICARE, SELFPAY ==
--- NOTE | ~2025-03-26 | MR_ITS ---
EXAMINATION: MR CERVICAL SPINE WITHOUT CONTRAST CLINICAL INFORMATION: Spinal stenosis. M 48.00 COMPARISON: None available. TECHNIQUE: MRI of the cervical spine was obtained using routine sequences without contrast. FINDINGS: Craniocervical junction is intact. Normal position of the cerebellar tonsils. Hyperintense T2 STIR signal within the wade and midbrain, likely related to old lacunar infarcts. No bone marrow STIR signal abnormality. Grade 1 anterolisthesis C4-5, C5-6 and to a lesser extent C6-7 and C7-T1. Cervical spinal cord signal is normal. C2-3: No disc herniation. No neuroforamina stenosis. C3-4: No disc herniation. No neuroforamina stenosis. C4-5: No herniated disc. No neuroforamina stenosis. C5-6: Broad-based disc osteophyte consummation. No central spinal canal stenosis. Left neuroforamina narrowing. C6-7: No central spinal canal stenosis or neuroforamina stenosis. C7-T1: No central spinal canal stenosis or neuroforamina stenosis. No prevertebral compartment hematoma, mass or fluid collection. Flow-void signal within the main vessels is normal. G artery is dominant. . MR/MR cervical spine wo con IMPRESSION: Mild multilevel cervical spondylosis resulting in grade 1 anterolisthesis C4-5, C5-6 and, C6-7 and C7-T1 levels. No cord compression, cord edema and or myelopathy. Concerning small vessel occlusive disease no fully depicted on this exam. EXAMINATION: MR LUMBAR SPINE WITHOUT CONTRAST CLINICAL INFORMATION: M48.00. Spinal stenosis. COMPARISON: Correlated to CT abdomen and pelvis dated June 13, 2024. TECHNIQUE: MRI of the lumbar spine was obtained using routine sequences without contrast. FINDINGS: Last rib-bearing vertebra labeled T12. Grade 1 anterolisthesis L4-5 and to a lesser extent L3-4. Grade 1 retrolisthesis, L1 to and to a lesser extent T12-L1 and L2-3 levels. Conus medullaris ends at the inferior endplate of T12 with normal signal. T11-12: No herniated disc. No neuroforamina stenosis. T12-L1: Broad-based disc bulging. Facet joint hypertrophy. No central spinal canal or neuroforamina stenosis. L1-2: Broad-based disc bulging. Facet joint hypertrophy. No central spinal canal or neuroforamina stenosis. L2-3: Broad-based disc bulging. Facet joint hypertrophy. Bilateral neuroforamina narrowing. No central spinal canal stenosis. L3-4: Broad-based disc bulging. Grade 1 anterolisthesis. Facet joint and ligamentum flavum hypertrophy. Reduced AP diameter of the thecal sac and neuroforamina. L4-5: Grade 1 anterolisthesis resulting in central spinal canal and bilateral neuroforamina stenosis likely encroaching the neural elements. L5-S1: Broad-based disc bulging. Probable focal annular fissure. No central spinal canal or neuroforamina stenosis. No prevertebral compartment hematoma, mass or fluid collection. Cystic lesions in the kidneys. Intrinsic hyperintense T1 bone marrow lesion at T12 and likely T11 probable intraosseous hemangioma. Bone marrow inhomogeneity suggesting osteopenia versus osteoporosis. IMPRESSION: Multilevel spondylosis resulting in grade 1 anterolisthesis L4-5 central spinal canal and neuroforamina stenosis encroaching the neural elements, similar findings to a lesser extent at L3-4. Electronically signed by: Charbel Hendrix MD 03/26/2025 02:21 PM EDT
== END 2025-03-26 12:39 | disposition home or self-care (01) ==
LOC: HO.MRI 12:38
PROVIDERS: PCP Physician Assistant Medical; Visit Provider Physician Assistant Medical
DX: M48.00 Spinal stenosis, site unspecified (principal); M47.816 Spondylosis without myelopathy or radiculopathy, lumbar region; R26.9 Unspecified abnormalities of gait and mobility; M54.2 Cervicalgia
CPT/HCPCS: 72141; 72148

== ENCOUNTER 2025-05-15 10:43 | Outpatient (AMB) | payer MEDICARE, SELFPAY ==
--- NOTE | 2025-05-15 11:00 | A.OFFVIS_ITS ---
Intake Visit Reasons: 1 year follow up, Parkinsons Allergies No Known Allergies (No Known Allergies*) Allergy (Verified 03/05/25 13:20) Medication List - Last Reconciled 05/15/25 by Srikanth Patterson MD acetaminophen ER (Tylenol Arthritis Pain) 1,300 mg (2 x 650 mg) PO Q8H apixaban (Eliquis) 5 mg PO BID 90 days carbidopa-levodopa 25-100 mg 1.5 tabs PO TID 90 days cholecalciferol (vitamin D3) 25 mcg PO DAILY finasteride 5 mg PO DAILY omeprazole 40 mg PO BID 90 days walker (Ultra-Light Rollator misc) for ambulating daily HPI Comments Details: ?He had PE in March 2024 an dwas admitted [place] [facility] [place] had a [place]. No falls. He shuffles his feet. Walking ok otherwise but has trouble with curbs. Feels he has no control of legs. Feels legs are stuck to the ground. No more pain in right knee and hip. Has low back pain and had MRI which showed mild stenosis. Saw Dr. Lorenzo and no surgery was recommended. Has shuffling and hesitancy when he gets to a door. He has noticed difficulty walking in that he shuffles his feet. Sometimes walks with a stooped posture and tends to trip over his own feet. He feels the symptoms have been stable for the last 6 months and have not gotten progressively worse. He has had a bladder control problems attributed to prostatism for which he takes finasteride and sees a urologist. He has no cognitive decline. He does not have any neck pain or stiffness. He needs help to get dressed. Has some loss of train of thought at times. Balance is poor and feels he has rubber bands on his feet. 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 Father No problems noted. Social History Housing: House Patient Tobacco Use Status: Never used Tobacco e-Cigarette/Vaping Use: Never Used service: Yes Current occupational status: retired Cognitive needs: No Hearing needs: Yes Vision needs: Yes (rx glasses) Review of Systems Const Details: Sleep:? Difficulty getting to sleep?denies.? Difficulty maintaining sleep?denies? .? Urge to move legs?denies.? Teeth grinding?denies.? Shouting or Kicking during sleep?denies.? Abnormal behavior during sleep?denies.? Excessive sleep?denies.? Snoring?denies.? Daytime sleepiness?denies.? ?? General/Constitutional:? Change in appetite?denies.? Chills?denies.? Fatigue?denies.? Fever?denies .? Weight gain?denies.? Weight loss?denies.? ?? Ophthalmologic:? Blurred vision?denies.? Diminished visual acuity?denies.? ?? ENT:? Stuffiness?admits.? Decreased hearing?denies.? Dry mouth?denies.? Ear pain?denies.? Nosebleed?denies.? Ringing in the ears?denies.? Sinus pain?denies .? Sore throat?denies.? Swollen glands?denies.? ?? Endocrine:? Cold intolerance?denies.? Excessive thirst?denies.? Frequent urination? denies.? Heat intolerance?denies.? ?? Respiratory:? Shortness of breath?denies.? Chest pain?denies.? Cough?denies.? ?? Breast:? Breast lump?denies.? Nipple discharge?denies.? ?? Cardiovascular:? Chest pain at rest?denies.? Chest pain with exertion?denies.? Claudication?denies.? Dizziness?denies.? Fluid accumulation in the legs?denies.? Irregular heartbeat?denies.? Palpitations?denies.? ?? Gastrointestinal:? Abdominal pain?denies.? Constipation?denies.? Diarrhea?denies.? Difficulty swallowing?denies.? Heartburn?admits.? Nausea?denies.? Rectal bleeding?denies.? ?? Hematology:? Easy bruising?denies.? Prolonged bleeding?denies.? ?? Genitourinary:? Frequent urination?admits.? Urgency?denies.? Incontinence?denies.? Erectile Dysfunction?admits.? ?? Musculoskeletal:? Neck pain?denies.? Back pain?denies.? Muscle aches?admits.? Painful joints?admits.? Sciatica?denies.? Weakness?denies.? ?? Podiatric:? Difficulty walking?denies.? Foot numbness?denies.? ?? Neurologic:? Difficulty swallowing?denies.? Balance difficulty?admits.? Coordination? normal.? Difficulty speaking?denies.? Dizziness?denies.? Fainting?denies.? Gait abnormality?admits.? Headache?admits.? Loss of strength?denies.? Loss of use of extremity?denies.? Low back pain?denies.? Memory loss?denies.? Seizures?denies.? Tics?denies.? Tingling/Numbness?denies.? Transient loss of vision?denies.? T remor?started to get some tremor in holding a book of keeping hand in certain positions..? ?? Psychiatric:? Anxiety?denies.? Auditory/visual hallucinations?denies.? Delusions?denies .? Depressed mood?denies.? Stressors?denies.? Substance abuse?denies.? Suicidal thoughts?denies.? ?? Physical Exam Neuro Other: Neurological: ? Abnormal neurological findings:?Brisk reflexes with flexor plantar responses. Stooped posture, slight decrease in facial expression walks with a slightly reduced stride but no shuffling was noted today.?Walks with a cane ? Mental Status:?alert and oriented X 3,?Normal attention, orientation, memory and affect.? Cranial Nerves:?Pupils are equal, round and reactive to light. Fundoscopy shows normal disc bilaterally. External occular muscles are intact. Visual skinner are full, no ptosis. Face is symmetrical, no facial weakness or droop. Facial sensations are normal. Tongue protrudes in midline. Palate elevates symmetrically. Shoulder shrugging is normal..? Motor Examination:?Normal muscle tone, bulk and strength,?No atrophy or fasciculations,?No drift of the extended upper extremities,?Deep tendon reflexes are 2+ in the upper extremities and knees, ankle reflexes 0-1+?,?Plantars are flexor?.? Straight Leg Raising:?90 degrees.? Sensory Exam:?Normal light touch, temperature, pinprick, vibration and joint-position sensations?,?Rhomberg sign is absent.? Coordination:?no ataxia,?no titubation,?[id number], [id number] test and rapid alternating movements were normal.? Gait Exam:?As described above.? Cerebellar Signs:?[id number] and [id number]-ve-[id number] is normal,?no dysdiadochokinesia?.? Extrapyramidal System:?No tremor, rigidity with normal facial expressions,?No bradykinesia, no bradyphrenia. Normal arm swing and posture. No propulsion or retropulsion.? Speech:?Normal,?no dysphasia or dysarthria..? Mini Mental Status Exam: ? Level of Consciousness:?Alert.? Orientation:?Knows correct year, month, date, day and season,?Knows correct city, county and state. Knows correct location and floor.? Registration:?Able to register 3 objects.? Attention:?Serial 7's performed accurately.? Recall:?Able to recall 3 out of 3 objects.? Language:?Normal spontaneous speech, fluency, repetition,naming, comprehension, reading and writing.? Total Score:?30/30.? Assessment & Plan Assessment & Plan (1) Parkinsonism: Code(s): G20.C - Parkinsonism, unspecified Category: Medical (2) Hydrocephalus: Comment: CT brain shows mild vetriculomegaly and atrophy. MRI C spine shows spondylosis but No cervical cord compression and no cord signal abnormality. No stenosis. 03/26/25 Mild multilevel cervical spondylosis resulting in grade 1 anterolisthesis C4-5, C5-6 and, C6-7 and C7-T1 levels.No cord compression, cord edema and or myelopathy. Concerning small vessel occlusive disease no fully depicted on this exam. LS Spine MRI: L4-5 central stenosis. Code(s): G91.9 - Hydrocephalus, unspecified Category: Medical Plan MRI Brain, Continue current meds. Orders: Orders MR head/brain wo con 4 Weeks G20.C - Parkinsonism, unspecified, G91.9 - Hydrocephalus, unspecified Coding Level of Care Code Est Pt Level 5 (08810) Diagnoses Parkinsonism G20.C Hydrocephalus G91.9
== END 2025-05-15 11:34 | disposition home or self-care (01) ==
LOC: HO.HSM 10:44
PROVIDERS: PCP Physician Assistant Medical; Visit Provider Psychiatry & Neurology Neurology
DX: G20.C Parkinsonism, unspecified (principal); G91.9 Hydrocephalus, unspecified
CPT/HCPCS: 99215

== ENCOUNTER → 2025-05-15 10:43 | Outpatient (BNVA) | payer MEDICARE, SELFPAY | PROVIDERS: PCP Physician Assistant Medical; Visit Provider Psychiatry & Neurology Neurology | DX: G20.C Parkinsonism, unspecified (principal); G91.9 Hydrocephalus, unspecified | CPT/HCPCS: 99212 ==